=== PATIENT | female | born 1940 | race Caucasian/White ===

== ENCOUNTER 2019-06-14 17:32 | Observation (INO) | payer MEDICARE, SELFPAY ==
[2019-06-14 17:36] VITALS: RESP 18; TEMP 36.6; O2SAT 99; BMI 32.8
--- NOTE | 2019-06-14 17:47 | ECG_ITS ---
Measurements Intervals [place] Rate: 66 P: 24 [place]: 175 QRS: -8 QRSD: 94 T: 30 QT: 409 QTc: 431 SINUS RHYTHM MINIMAL VOLTAGE CRITERIA FOR LVH, CONSIDER NORMAL VARIANT [MEETS CRITERIA IN ONE OF: R(aVL), S(V1), R(V5), R(V5/V6)+S(V1)] No previous ECG available for comparison Electronically Signed On 06-14-2019 20:51:23 CDT by Prosper Amaya M.D. [email or web address]
[2019-06-14 19:10] LABS: Troponin(5th) Baseline 15 ng/mL (0-10)
--- NOTE | 2019-06-14 19:39 | ED_ITS ---
Entered by Radha Alvarado, acting as scribe for Holli Balbuena Jignesh Jun 14, 2019 17:32 HPI - Chest Pain General: Chief Complaint: Chest Pain Stated Complaint: CHEST PAINS Time Seen by Provider: 06/14/19 19:39 Source: patient and family Mode of arrival: ambulatory Limitations: no limitations History of Present Illness: HPI narrative: 79 yo Female presents to ED with complaint of chest pain. Pt states that she had a dull ache that lasted for 10- 15 minutes. Pt states that the pain was in her left chest and radiated to her back and her jaw. Pt states that the pain didn't radiate anywhere and she didn't have nausea or shortness of breath. Pt states that she sneezed and then her pain started. Pt states that she was plugging her cell phone in at the time the pain started. Pt states she sat down and took her blood pressure and it was a little elevated so she called Dr. Graham and decided to come in. Pt states that she has hypertension and high cholesterol that she takes medication for. Pt states that she was told she had heart murmur 57 years ago. Pt states that she smoked but quit 16 years ago. Pt's family states that the patient's blood pressure was 230/87 in triage. MD complaint: chest pain Onset (ago): hour(s) Timing of current episode: episodic and now resolved Prior episodes: Yes Onset: during rest Pain location: left chest Pain radiation: back and jaw/teeth Quality: aching and dull Relieving factors: nothing Exacerbating factors: nothing Associated symptoms: Deny diaphoresis, dyspnea, nausea, palpitations, syncope or vomiting Treatment prior to arrival: none Risk Factors: Coronary artery disease risk factors: smoking history, hyperlipidemia and hypertension Review of Systems General: Reports: other (negative unless marked) Const: Denies: diaphoresis Eyes: Denies: change in vision or blurry vision ENMT: Denies: throat pain, painful swallowing, hoarseness, ear pain, ear discharge, Change in hearing or nasal discharge Card: Reports: chest pain; Denies: palpitations, irregular heart rhythm, syncope, pre-syncope, shortness of breath on exertion or shortness of breath when lying down Resp: Denies: shortness of breath GI: Denies: nausea or vomiting : Denies: flank pain, painful urination, urinary frequency, urinary urgency, decreased urine ouput, urinary incontinence or blood in urine Musc: Reports: back pain and other (jaw pain); Denies: neck pain, extremity pain, extremity swelling, joint pain, joint swelling, joint warmth or joint stiffness Skin/Breast: Denies: rash, skin tenderness or yellow skin Neuro: Denies: headache, numbness in extremities, weakness in extremities, changes in sensation, lack of coordination, difficulty walking, dizziness, vertigo or confusion Endo: Denies: excessive thirst, tired all the time, cold intolerance, excessive sweating, flushing or hot flashes Davis/Lymph: Denies: easy bruising, easy bleeding, petechiae or enlarged lymph nodes All/Imm: Denies: hives, throat swelling, tongue swelling, facial swelling or acute wheezing PFSH ED PFSH: Social History Smoking and tobacco status: never smoked Physical Exam Const: COMMON NORMALS: no apparent distress, oriented x3, no limitations, healthy appearing and well nourished EXAM LIMITATIONS: no altered mental status GENERAL APPEARANCE: cooperative, well kempt and well developed ORIENTATION/CONSCIOUSNESS: Yes awake HENMT: COMMON NORMALS: normocephalic, head/scalp atraumatic, hearing grossly normal bilaterally, external ears normal, EAC's normal, external nose normal and moist oral mucous membranes HEAD & SCALP: normal to inspection, normocephalic and atraumatic FACE & SINUS: normal facial exam and face symmetric NOSE: external nose normal and nares normal EXTERNAL EAR: Yes external ears normal EXTERNAL AUDITORY CANAL: EAC's normal MOUTH: oral and palatal mucosa normal and tongue normal Eye: COMMON NORMALS: PERRL, EOMs intact bilaterally, conjunctivae normal and no scleral icterus GENERAL EYE: normal appearance of both eyes and normal light reflex CONJUNCTIVA: Yes conjunctivae normal SCLERA: sclerae normal CORNEA: Yes corneas normal PUPIL: Yes PERRL DIRECT OPHTHALMOSCOPY: Yes normal light reflex Neck/C-Spine: COMMON NORMALS: full ROM, no lymphadenopathy, supple, no meningeal signs and no JVD GENERAL: Yes normal visual inspection and Yes trachea midline CERVICAL SPINE: Yes cervical ROM normal Chest: COMMONS NORMALS: inspection of chest normal and palpation of chest normal Resp: COMMON NORMALS: normal respiratory effort, no retractions, no use of accessory muscles and clear to auscultation bilaterally EFFORT & INSPECTION: Yes able to speak in complete sentences AUSCULTATION: clear to auscultation bilaterally Cardio: COMMON NORMALS: no JVD, regular rate, regular rhythm, S1 normal heart sound, S2 normal heart sound, no gallops, no clicks, no murmurs and no rub JUGULAR VENOUS DISTENTION: no JVD RATE: regular rate RHYTHM: regular rhyt hm HEART SOUNDS: S1 normal and S2 normal GI: COMMON NORMALS: soft to palpation, non-tender, no hepatosplenomegaly and n o masses INSPECTION: Yes normal to inspection PALPATION: Yes soft and Yes no hepatosplenomegaly : COMMON NORMALS: Yes no CVA tenderness BLADDER/KIDNEY EXAM: Yes no CVA tenderness Back/Pelvis: COMMON NORMALS: no CVA tenderness, thoracic and lumbar spine normal to inspection, no thoracic nor lumbar tenderness and thoraco-lumbar ROM normal Extremity: COMMON NORMALS: normal to inspection, full ROM, normal capillary refill, no joint enlargement, no clubbing, cyanosis or edema and no calf tenderness Neuro: COMMON NORMALS: oriented x3, CN's II-XII intact bilaterally, moves all extremities, no focal motor deficits and no sensory deficits noted MENINGEAL SIGNS: Yes no meningeal signs Psych: COMMON NORMALS: mental status grossly normal, thought process normal, cooperative, affect normal, speech normal and activity/motor behavior normal APPEARANCE: Yes well kempt SPEECH: Yes normal speech THOUGHT PROCESS: normal thought process Skin: COMMON NORMALS: no rashes or lesions noted, skin turgor normal, no jaundice, no petechiae and no mottling GENERAL SKIN EXAM: no rashes or lesions noted and turgor normal Course Vital Signs: Vital signs: Vital Signs Temperature 97.8 F 06/14/19 17:36 Pulse Rate 60 06/14/19 21:05 Respiratory Rate 16 06/14/19 21:05 Blood Pressure 189/88 06/14/19 21:05 Pulse Oximetry 99 06/14/19 21:05 MDM - Chest Pain MDM Narrative: Medical decision making narrative: Libby is a nice 79-year-old female who comes in complaining of chest pain. It was described as a dull ache and it was left-sided. It radiated up to both of her jaws. She felt slightly short of breath but denied any diaphoresis, nausea or vomiting and the pain lasted more than 15 minutes. Patient has risk factors of hypertension, hyperlipidemia and being a former smoker. Patient's blood pressure was markedly elevated at home as well as here. After labetalol she is feeling better. She arrived chest pain-free. I have reviewed the case in full with Dr. Brown and he is agreeable to admission for cardiac rule out and stress testing. Lab Data: Labs: Lab Results 06/14/19 06/14/19 06/14/19 Range/Units 18:24 18:24 18:24 WBC 7.1 (4.0-10.0) 10^3/ uL RBC 4.59 (4.1-5.3) 10^6/u L Hgb 13.5 (11.5-15.3) g/dL Hct 42.9 (37.0-47.0) % MCV 93.5 (81-99) fL MCH 29.4 (28.0-34.0) pg MCHC 31.5 (30.0-36.0) g/dL RDW 12.6 (12.1-15.1) % Plt Count 269 (130-400) 10^3/c mm MPV 13.5 H (7.4-10.4) fL Neut % (Auto) 58.9 % Lymph % (Auto) 27.9 % Craig % (Auto) 8.7 % Eos % (Auto) 3.1 % Baso % (Auto) 1.1 % Neut # (Auto) 4.2 (1.8-7.7) 10^3/u L Lymph # (Auto) 2.0 (0.8-4.8) 10^3/u L Craig # (Auto) 0.6 (0.2-0.9) 10^3/u L Eos # (Auto) 0.2 (0.0-0.8) 10^3/u L Baso # (Auto) 0.1 (0.0-0.1) 10^3/u L Nucleated RBC % (a uto) 0 % Nucleated RBCs # 0.0 /100WBC Sodium 141 (136-145) mmol/L Potassium 4.5 (3.5-5.1) mmol/L Chloride 101 (98-107) mmol/L Carbon Dioxide 26 (22-29) mmol/L Anion Gap 18.5 (5-19) BUN 24 H (8-23) mg/dL Creatinine 1.4 H (0.5-0.9) mg/dL Glucose 110 (65-115) mg/dL Calculated Osmolal ity 289 (285-295) mOsm/k g Calcium 10.2 (8.5-10.5) mg/dL Magnesium 2.4 H (1.7-2.3) mg/dL Total Bilirubin 0.3 (0.15-1.2) mg/dL AST 24 (0-32) U/L ALT 16 (0-33) U/L Alkaline Phosphata se 77 (35-105) IU/L Troponin T Baselin e 15 H (0-10) ng/mL Troponin T 120 Min [place] (0-10) ng/mL Delta Troponin T (0-10) ABS# NT-Pro-B Natriuret Pep 83 (0-450) pg/mL Total Protein 7.1 (6.6-8.7) g/dL Albumin 4.6 (3.5-5.2) g/dL Globulin 2.5 (1.3-4.6) g/dL Lipase 31 (13-60) U/L 06/14/19 Range/Units 20:06 WBC (4.0-10.0) 10^3/ uL RBC (4.1-5.3) 10^6/u L Hgb (11.5-15.3) g/dL Hct (37.0-47.0) % MCV (81-99) fL MCH (28.0-34.0) pg MCHC (30.0-36.0) g/dL RDW (12.1-15.1) % Plt Count (130-400) 10^3/c mm MPV (7.4-10.4) fL Neut % (Auto) % Lymph % (Auto) % Craig % (Auto) % Eos % (Auto) % Baso % (Auto) % Neut # (Auto) (1.8-7.7) 10^3/u L Lymph # (Auto) (0.8-4.8) 10^3/u L Craig # (Auto) (0.2-0.9) 10^3/u L Eos # (Auto) (0.0-0.8) 10^3/u L Baso # (Auto) (0.0-0.1) 10^3/u L Nucleated RBC % (a uto) % Nucleated RBCs # /100WBC Sodium (136-145) mmol/L Potassium (3.5-5.1) mmol/L Chloride (98-107) mmol/L Carbon Dioxide (22-29) mmol/L Anion Gap (5-19) BUN (8-23) mg/dL Creatinine (0.5-0.9) mg/dL Glucose (65-115) mg/dL Calculated Osmolal ity (285-295) mOsm/k g Calcium (8.5-10.5) mg/dL Magnesium (1.7-2.3) mg/dL Total Bilirubin (0.15-1.2) mg/dL AST (0-32) U/L ALT (0-33) U/L Alkaline Phosphata se (35-105) IU/L Troponin T Baselin e (0-10) ng/mL Troponin T 120 Min [place] 13.46 H (0-10) ng/mL Delta Troponin T -1.54 L (0-10) ABS# NT-Pro-B Natriuret Pep (0-450) pg/mL Total Protein (6.6-8.7) g/dL Albumin (3.5-5.2) g/dL Globulin (1.3-4.6) g/dL Lipase (13-60) U/L Imaging Data^: CXR: My impression: No acute cardiopulmonary findings. EKG Data^: EKG 1: Attestation: I personally reviewed and interpreted this EKG as follows: EKG interpretation date: 06/14/19 Interpretation: Normal sinus rhythm at 66 beats a minute, LVH, left axis deviation, normal intervals, no blocks, no acute ST or T wave changes. Discharge Plan Discharge Patient Disposition: Placed in Observation Admit Provider: Prosper Valadez Clinical Impression: Chest pain Condition: Stable Coding Level of Care Code ED Development Educator for Chg Fwd Exam Comprehensive The documentation recorded by the Jenny boyle Carmen, accurately reflects the service I personally performed and the decisions made by Sree rodriguez Eli N Jun 14, 2019 17:32
--- NOTE | 2019-06-14 19:40 | XR_ITS ---
WS: [id number] Portable AP upright chest, 06/14/2019 Clinical Data: cough Comparison: None. Findings: No nodules, masses or effusions are seen. The heart is normal. The pulmonary vascularity is not increased. No pneumonia or pneumothorax is seen. The aortic arch shows calcification. XR/XR chest 1V portable [id number] Impression: Atherosclerosis.
[2019-06-14 19:48] LABS: Basophils # 0.1 10^3/uL (0.0-0.1); Basophils % 1.1 %; Eosinophils # 0.2 10^3/uL (0.0-0.8); Eosinophils % 3.1 %; Hematocrit 42.9 % (37.0-47.0); Hemoglobin 13.5 g/dL (11.5-15.3); Lymphocytes % 27.9 %; Mean Corpuscular HGB Conc 31.5 g/dL (30.0-36.0); Mean Corpuscular Hemoglobin 29.4 pg (28.0-34.0); Mean Corpuscular Volume 93.5 fL (81-99); Mean Platelet Volume 13.5 fL (7.4-10.4); Monocytes # 0.6 10^3/uL (0.2-0.9); Monocytes % 8.7 %; Neutrophils # 4.2 10^3/uL (1.8-7.7); Neutrophils % 58.9 %; Nucleated Red Blood Cells % 0 %; Platelet Count 269 10^3/cmm (130-400); Red Blood Count 4.59 10^6/uL (4.1-5.3); Red Cell Distribution Width 12.6 % (12.1-15.1); White Blood Count 7.1 10^3/uL (4.0-10.0)
[2019-06-14 20:06] LABS: Slide Review Slide Review Perform
[2019-06-14 20:13] LABS: Alanine Aminotransferase 16 U/L (0-33); Albumin Level 4.6 g/dL (3.5-5.2); Alkaline Phosphatase 77 IU/L (35-105); Anion Gap 18.5 (5-19); Aspartate Amino Transferase 24 U/L (0-32); Blood Urea Nitrogen 24 mg/dL (8-23); Calcium 10.2 mg/dL (8.5-10.5); Carbon Dioxide 26 mmol/L (22-29); Chloride 101 mmol/L (98-107); Globulin 2.5 g/dL (1.3-4.6); Glucose 110 mg/dL (65-115); Lipase 31 U/L (13-60); Magnesium 2.4 mg/dL (1.7-2.3); NT Pro B Type Natriuretic Pept 83 pg/mL (0-450); Osmolality Calculated 289 mOsm/kg (285-295); Potassium 4.5 mmol/L (3.5-5.1); Sodium 141 mmol/L (136-145); Total Bilirubin 0.3 mg/dL (0.15-1.2); Total Protein 7.1 g/dL (6.6-8.7)
[2019-06-14] MEDS: labetalol 5 mg/mL SDV 20mL 10 MG IVP (20:18)
[2019-06-14] MEDS: aspirin 325 mg Tablet PO (20:20)
[2019-06-14 20:37] LABS: Troponin 5 2HR 13.46 ng/mL (0-10)
[2019-06-14 20:45] LABS: Troponin 5 2HR Delta -1.54 ABS# (0-10)
[2019-06-14 21:05] VITALS: BP 189/88; PULSE 60; RESP 16; O2SAT 99
--- NOTE | 2019-06-14 22:02 | PM.HP ---
Providers/Chief Complaint Admitting Physician: Prosper Valadez MD Chief Complaint: CHEST PAINS History of Present Illness Libby Estevez is a 79 year old female who has a history of hypertension, takes 3 antihypertensives, came in with chief complaint of chest pain. Patient is stating that she lives alone, she is independent for daily activities, she was in her usual state of health until today when she started sneezing, after sneezing she felt some discomfort around her chin area, she has not been taking her blood pressure for quite a while because she was feeling fine, she is compliant with her medications, she ignored her discomfort around the chin initially and then she started experiencing some chest discomfort which was diffuse, substernal, radiating towards her jaw, lasted for few minutes not associated with nausea, vomiting, shortness of breath, orthopnea and PND. At that time she took blood pressure it was 203/87 mmHg, she called her PCP who recommended evaluation in the ER, when she came in her blood pressure was 230/187, sinus rhythm, troponins not significantly high, she was admitted for ACS rule out considering her risk factors. Review of Systems Const: Denies: fever or chills Eyes: Denies: change in vision or photophobia ENMT: Denies: throat pain Card: Reports: chest pain; Denies: palpitations, irregular heart rhythm, edema, swelling of feet/ankles, lightheadedness or syncope Resp: Denies: shortness of breath GI: Denies: abdominal pain, nausea or vomiting : Denies: flank pain or difficulty urinating Musc: Denies: neck pain Skin/Breast: Denies: rash Neuro: Denies: headache Psych: Denies: anxiety Endo: Denies: excessive urination Davis/Lymph: Denies: easy bruising All/Imm: Denies: hives Medications/Allergies Home Medications Medication Instructions Recorded Confirmed Last Taken Type atorvastatin [Lipitor] 10 mg PO DAILY 06/14/19 06/14/19 06/14/19 History hydrochlorothiazide 12.5 mg PO DAILY 06/14/19 06/14/19 06/14/19 History losartan 100 mg PO DAILY 06/14/19 06/14/19 06/14/19 History magnesium citrate See Rx Instructions .ROUTE .COMPLEX 06/14/19 06/14/19 Unknown History magnesium hydroxide [Milk of See Rx Instructions .ROUTE .COMPLEX 06/14/19 06/14/19 Unknown History Magnesia] metoprolol tartrate 50 mg PO DAILY 06/14/19 06/14/19 06/14/19 History multivit with min-folic acid 400 mcg PO DAILY 06/14/19 06/14/19 06/14/19 History [Adult Multivitamin Gummies] Allergies Allergy/AdvReac Type Severity Reaction Status Date / Time No Known Allergies Allergy Verified 06/14/19 17:43 PFSH Acute PFSH: Medical History (Updated 06/14/19 @ 23:52 by Prosper Valadez MD) Dyslipidemia Former smoker GERD (gastroesophageal reflux disease) Hypertension Surgical History (Updated 06/14/19 @ 23:51 by Prosper Valadez MD) H/O knee surgery Family History (Updated 06/14/19 @ 23:51 by Prosper Valadez MD) Father CAD (coronary artery disease) Denies family history of Cancer Social History (Updated 06/14/19 @ 23:51 by Prosper Valadez MD) Smoking and tobacco status: never smoked Alcohol intake: never Substance/Drug Use: never Lives independently: Yes Housing: House Vitals/I&O/Wt Last Vital Signs Temp 97.8 F 06/14/19 17:36 Pulse 60 06/14/19 21:05 Resp 16 06/14/19 21:05 BP 189/88 06/14/19 21:05 Pulse Ox 99 06/14/19 21:05 Weight last 48 hrs Weight 83.915 kg Physical Exam Narrative: EXAM NARRATIVE: This is a pleasant obese female sitting comfortable in her bed eating sandwich S1, S2, no reproducible pain, no signs of heart failure Abdomen soft, nontender, nondistended, bowel sound present Lungs are clear to auscultation Neurologically nonfocal exam Skin does not show any sign ischemia gangrene or ulcer Appropriate mood and affect EOMI, PERRLA Data : 06/14/19 18:24 06/14/19 18:24 A&P Assessment and plan (1) Chest pain: Status: Acute Code(s): R07.9 - Chest pain, unspecified (2) Hypertensive urgency: Status: Acute Code(s): I16.0 - Hypertensive urgency (3) Obesity: Status: Acute Code(s): E66.9 - Obesity, unspecified (4) Dyslipidemia: Status: Acute Code(s): E78.5 - Hyperlipidemia, unspecified Additional A&P Information Atypical chest pain Her discomfort is most likely secondary to hypertensive urgency, target blood pressure lowering 25% in next 16 to 18 hours, I will target her blood pressure to be around 140 to 150 mmHg, Considering her obesity, dyslipidemia, hypertension he has moderate risk factors for coronary disease, will do a Lexiscan stress test in the morning along echo I will hold her beta-renetta at the moment N.p.o. after midnight Hypertensive urgency: She is on 3 antihypertensives, I have increased her hydrochlorothiazide dose, she will probably need higher dose of metoprolol on discharge, no signs of hyper or hypokalemia, she will need work-up for resistant hypertension if blood pressure stays uncontrolled on 3 medications Full code DVT prophylaxis: Lovenox Obesity: Patient was counseled on the benefits of losing weight and reduction of blood pressure, I will check A1c level, lipid panel and TSH Attestations Medical Necessity Statement*: Anticipating discharge less than 48 hours after ruling out cardiac etiology for her chest pain Time Spent in Patient Care: 40 Coding Level of Care Code Acute Roll Capper for [facility] Rahd Diagnoses Chest pain R07.9 Hypertensive urgency I16.0 Obesity E66.9 Dyslipidemia E78.5
[2019-06-14 22:16] VITALS: BP 189/88; PULSE 60; RESP 16; O2SAT 96
[2019-06-14 22:37] VITALS: BP 171/88; PULSE 74; RESP 18; O2SAT 96
--- NOTE | 2019-06-14 22:58 | PC.NURSE ---
Admitted to room 112-2 from ED via wheelchair with complaint of chest pain x1 today, happened when I bent over to plug in my phone. Denies pain at this time. Just hungry and tired. Assessment completed. [place] given to patient. Patient lying in bed watching television. I always watch television about an hour before I go to sleep. Dr. Valadez in room. Discontinued IVF. Will monitor.
[2019-06-14 23:22] VITALS: PULSE 66; RESP 18
--- NOTE | 2019-06-14 23:47 | ECG_ITS ---
Measurements Intervals [place] Rate: 63 P: 40 PA: 168 QRS: -7 QRSD: 93 T: 67 QT: 419 QTc: 432 SINUS RHYTHM NONSPECIFIC T-WAVE ABNORMALITY Compared to ECG 06/14/2019 17:41:34 T-wave abnormality now present Electronically Signed On 06-16-2019 9:05:28 CDT by Dameon Malcolm M.D. [email or web address]
[2019-06-14] MEDS: enoxaparin 40 mg/0.4 mL Syringe SUBCUT (23:49)
[2019-06-15] VITALS (7 sets, daily range): BP systolic 139–218; BP diastolic 63–85; PULSE 62–66; RESP 11–19; TEMP 36.7–37.1; O2SAT 97–98
--- NOTE | 2019-06-15 00:04 | PC.NURSE ---
This nurse explained to patient about Lovenox and the reasoning for it. Also spoke to patient about NIBI Stress Test in am. Order faxed to [facility]. Voices understanding. Will monitor.
[2019-06-15 00:18] LABS: Troponin 5 6HR 13.79 ng/mL (0-10)
[2019-06-15 00:26] LABS: Troponin 5 6HR Delta -1.21 ng/L (0-12)
[2019-06-15 00:30] LABS: Estmated Average Glucose 123; Hemoglobin A1C 5.9 % (4.0-6.0)
[2019-06-15 00:32] LABS: Chol HDL Ratio 2.61 mg/dL (0.0-4.40); Cholesterol 180 mg/dL (0-200); HDL Cholesterol 69 mg/dL (60-100); LDL Cholesterol Calculated 96 mg/dL (50-129); LDL HDL Ratio 1.39 RATIO (0.00-3.22); Triglycerides 73 mg/dL (0-150)
[2019-06-15 00:41] LABS: Thyroid Stimulating Hormone 3.31 uIU/mL (0.27-4.20)
--- NOTE | 2019-06-15 02:08 | PC.NURSE ---
Patient lying on right side with eyes closed. Respirations even and unlabored. Did not awaken at this time. Will monitor. Monitor showing SR with HR of 62.
[2019-06-15 04:37] LABS: Basophils # 0.1 10^3/uL (0.0-0.1); Basophils % 1.1 %; Eosinophils # 0.2 10^3/uL (0.0-0.8); Eosinophils % 3.1 %; Hematocrit 37.9 % (37.0-47.0); Hemoglobin 12.2 g/dL (11.5-15.3); Lymphocytes % 31.1 %; Mean Corpuscular HGB Conc 32.2 g/dL (30.0-36.0); Mean Corpuscular Hemoglobin 29.8 pg (28.0-34.0); Mean Corpuscular Volume 92.7 fL (81-99); Mean Platelet Volume 13.6 fL (7.4-10.4); Monocytes # 0.6 10^3/uL (0.2-0.9); Monocytes % 9.5 %; Neutrophils # 3.6 10^3/uL (1.8-7.7); Nucleated Red Blood Cells % 0 %; Platelet Count 227 10^3/cmm (130-400); Red Blood Count 4.09 10^6/uL (4.1-5.3); Red Cell Distribution Width 12.6 % (12.1-15.1); White Blood Count 6.4 10^3/uL (4.0-10.0)
[2019-06-15 04:49] LABS: Blood Urea Nitrogen 24 mg/dL (8-23); Calcium 9.7 mg/dL (8.5-10.5); Carbon Dioxide 23 mmol/L (22-29); Chloride 105 mmol/L (98-107); Glucose 109 mg/dL (65-115); Osmolality Calculated 289 mOsm/kg (285-295); Sodium 141 mmol/L (136-145)
[2019-06-15 05:32] LABS: Slide Review Slide Review Perform
--- NOTE | 2019-06-15 06:00 | ECG_ITS ---
NAME OF STUDY: LEXISCAN SESTAMIBI STRESS TEST INDICATION: Chest Pain, LEXISCAN STRESS TEST ORDERING PHYSICIAN: Hospitalist CLINICAL INFORMATION: Chest pain INTERPRETATION: 1. The patient was brought to the laboratory where Lexiscan was infused over 20 seconds. The resting blood pressure was 204/84. Maximum blood pressure was 204/84. The resting heart rate was 62 beats per minute. The maximum heart rate is 84 beats per minute. 2. The baseline electrocardiogram reveals sinus rhythm with poor R wave progression but otherwise a normal tracing 3. With Lexiscan infusion, there were no ST segment changes to suggest ischemia. 4. The patient experienced no symptoms or arrhythmias during the examination. CONCLUSION: 1. Unremarkable Lexiscan infusion. 2. Nuclear imaging to follow. 3. Hypertension Electronically Signed On 06-15-2019 18:32:24 CDT by Dameon Malcolm M.D. [email or web address]
--- NOTE | 2019-06-15 06:22 | PC.NURSE ---
Monitor showing SR-SB with HR upper 50's to low 60's. Denies pain. Will monitor.
[2019-06-15] MEDS: regadenoson 0.4 Mg/5 ml Syringe IVP (08:05)
--- NOTE | 2019-06-15 08:24 | PC.NURSE ---
PATIENT HELD IN CDL UNTIL 2ND NUC MED SCANS
[2019-06-15] MEDS: losartan 50 mg Tablet 100 MG PO (09:45)
[2019-06-15] MEDS: hydroCHLOROthiazide 25 mg Tablet PO (09:45)
[2019-06-15] MEDS: metoprolol tartrate 25 mg Tablet 37.5 MG PO (09:46)
[2019-06-15] MEDS: atorvastatin 40 mg Tablet 10 MG PO (09:46)
--- NOTE | 2019-06-15 12:54 | P.PN_ITS ---
Subjective Subjective: Interval history: Libby reports no chest discomfort overnight. History and physical was reviewed. We are awaiting the results of her nuclear stress test. Blood pressures come under better control after she has been able to get her beta-renetta following her stress test. Medications: Reviewed: Yes Vitals/I&O/Wt Last Vital Signs Temp 98.7 F 06/15/19 12:00 Pulse 64 06/15/19 12:00 Resp 18 06/15/19 12:00 BP 150/63 06/15/19 12:00 Pulse Ox 97 06/15/19 12:00 06/14/19 06/15/19 06/15/19 22:59 06:59 14:59 Intake Total 480 / 480 Balance 480 / 480 Weight last 48 hrs Weight 83.915 kg Physical Exam Narrative: EXAM NARRATIVE: General exam is no apparent distress Cardiovascular regular rate and rhythm without murmur Lungs clear no wheezing or crackles Abdomen is soft positive bowel sounds Extremities no cyanosis clubbing or edema Data : 06/15/19 03:30 06/15/19 03:30 A&P Assessment and plan (1) Chest pain: Nuclear stress test pending. Echocardiogram pending. Troponin without any significant delta. EKG without any significant ischemic changes. Status: Acute Code(s): R07.9 - Chest pain, unspecified (2) Hypertensive urgency: Metoprolol dose has been increased Hydrochlorothiazide dose has been increased. Continue losartan Further adjustments will likely be needed but blood pressure is coming under better control. This will require close follow-up. 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 Coding Level of Care Code Acute Outbound Sales Professional for g Fwd Diagnoses Chest pain R07.9 Hypertensive urgency I16.0 Obesity E66.9 Dyslipidemia E78.5
--- NOTE | 2019-06-15 16:59 | PM.DCS ---
Discharge Providers Date of Admission: 06/14/19 21:40 Date of Discharge: June 15, 2019 Attending Provider at Admission: Prosper Valadez MD Attending Provider at Discharge: Td Rain MD Diagnoses at Discharge Discharge Diagnosis (1) Chest pain: Status: Acute Problem details: No chest discomfort in the hospital. Troponin with no significant delta. EKG with no ischemia. Nuclear stress test with no reversible ischemia. Elevation in TID ratio was noted. Echocardiogram with normal EF, no wall motion abnormalities (2) Hypertensive urgency: Status: Acute Problem details: Improved with adjustment of medication. Metoprolol increased. Hydrochlorothiazide increased. She will start Norvasc tomorrow (3) Obesity: Status: Acute Problem details: Discussed weight loss (4) Dyslipidemia: Status: Acute Problem details: Continue statin Reason for Visit Reason for Visit: Reason For Visit: CHEST PAINS Hospital Course Discharge Summary: Libby is a 79-year-old female who presented to the hospital with chest discomfort. It was somewhat atypical. EKG did not show significant ischemic changes. Troponin demonstrated no concerning delta. Blood pressure was markedly elevated. While in the hospital she had no recurrence of pain. Nuclear stress test was performed, demonstrating no reversible ischemia. TID ratio was elevated. Echocardiogram demonstrated preserved EF, no significant valve abnormalities, and no wall motion abnormalities. Blood pressure medication was adjusted in the hospital with increase metoprolol, increased hydrochlorothiazide, and plan for addition of Norvasc. While in the hospital blood pressure decreased and was stable at 160/70 on discharge. She remained chest discomfort free in the hospital. It was thought she could be discharged home with close follow-up with her primary care provider. Physical Exam Narrative: EXAM NARRATIVE: See progress note from today Discharge Data Data Completed and Pending: Completed Studies During Hospitalization Category Date Time Status XR chest 1V jenny ble [id number] Stat Exams 06/14/19 19:40 Completed NM jesica perf SPECT r/s* [id number] Routin e Nuc Med 06/15/19 23:39 Completed CV echo complete* [id number] Routine Ultrasound 06/15/19 23:46 Completed Pending at discharge Category Date Time Status Sestamibi Stress Test Request Routi ne Exams 06/15/19 06:00 Ordered Labs from last 24 hours 06/15/19 06/15/19 06/14/19 03:30 03:30 23:40 WBC 6.4 RBC 4.09 L Hgb 12.2 Hct 37.9 MCV 92.7 MCH 29.8 MCHC 32.2 RDW 12.6 Plt Count 227 MPV 13.6 H Neut % (Auto) 55.0 Lymph % (Auto) 31.1 [place] % (Auto) 9.5 Eos % (Auto) 3.1 Baso % (Auto) 1.1 Neut # (Auto) 3.6 Lymph # (Auto) 2.0 [place] # (Auto) 0.6 Eos # (Auto) 0.2 Baso # (Auto) 0.1 Nucleated RBC % (a uto) 0 Nucleated RBCs # 0.0 Sodium 141 Potassium 4.0 Chloride 105 Carbon Dioxide 23 Anion Gap 17.0 BUN 24 H Creatinine 1.3 H Glucose 109 Estimat Average Gl ucose Hemoglobin A1c Calculated Osmolal ity 289 Calcium 9.7 Magnesium Total Bilirubin AST ALT Alkaline Phosphata se Troponin I 6 Hour 13.79 H Troponin I Hi Sens Del -1.21 L Troponin T Baselin e Troponin T 120 Min [place] Delta Troponin T NT-Pro-B Natriuret Pep Total Protein Albumin Globulin Triglycerides Cholesterol LDL Cholesterol, C alc HDL Cholesterol LDL/HDL Ratio Cholesterol/HDL Ra flash Lipase TSH 06/14/19 06/14/19 06/14/19 20:06 18:24 18:24 WBC RBC Hgb Hct MCV MCH MCHC RDW Plt Count MPV Neut % (Auto) Lymph % (Auto) [place] % (Auto) Eos % (Auto) Baso % (Auto) Neut # (Auto) Lymph # (Auto) [place] # (Auto) Eos # (Auto) Baso # (Auto) Nucleated RBC % (a uto) Nucleated RBCs # Sodium Potassium Chloride Carbon Dioxide Anion Gap BUN Creatinine Glucose Estimat Average Gl ucose 123 Hemoglobin A1c 5.9 Calculated Osmolal ity Calcium Magnesium Total Bilirubin AST ALT Alkaline Phosphata se Troponin I 6 Hour Troponin I Hi Sens Del Troponin T Baselin e Troponin T 120 Min [place] 13.46 H Delta Troponin T -1.54 L NT-Pro-B Natriuret Pep Total Protein Albumin Globulin Triglycerides Cholesterol LDL Cholesterol, C alc HDL Cholesterol LDL/HDL Ratio Cholesterol/HDL Ra flash Lipase TSH 3.31 06/14/19 06/14/19 06/14/19 18:24 18:24 18:24 WBC 7.1 RBC 4.59 Hgb 13.5 Hct 42.9 MCV 93.5 MCH 29.4 MCHC 31.5 RDW 12.6 Plt Count 269 MPV 13.5 H Neut % (Auto) 58.9 Lymph % (Auto) 27.9 [place] % (Auto) 8.7 Eos % (Auto) 3.1 Baso % (Auto) 1.1 Neut # (Auto) 4.2 Lymph # (Auto) 2.0 [place] # (Auto) 0.6 Eos # (Auto) 0.2 Baso # (Auto) 0.1 Nucleated RBC % (a uto) 0 Nucleated RBCs # 0.0 Sodium 141 Potassium 4.5 Chloride 101 Carbon Dioxide 26 Anion Gap 18.5 BUN 24 H Creatinine 1.4 H Glucose 110 Estimat Average Gl ucose Hemoglobin A1c Calculated Osmolal ity 289 Calcium 10.2 Magnesium 2.4 H Total Bilirubin 0.3 AST 24 ALT 16 Alkaline Phosphata se 77 Troponin I 6 Hour Troponin I Hi Sens Del Troponin T Baselin e Troponin T 120 Min [place] Delta Troponin T NT-Pro-B Natriuret Pep 83 Total Protein 7.1 Albumin 4.6 Globulin 2.5 Triglycerides 73 Cholesterol 180 LDL Cholesterol, C alc 96 HDL Cholesterol 69 LDL/HDL Ratio 1.39 Cholesterol/HDL Ra flash 2.61 Lipase 31 TSH 06/14/19 18:24 WBC RBC Hgb Hct MCV MCH MCHC RDW Plt Count MPV Neut % (Auto) Lymph % (Auto) [place] % (Auto) Eos % (Auto) Baso % (Auto) Neut # (Auto) Lymph # (Auto) [place] # (Auto) Eos # (Auto) Baso # (Auto) Nucleated RBC % (a uto) Nucleated RBCs # Sodium Potassium Chloride Carbon Dioxide Anion Gap BUN Creatinine Glucose Estimat Average Gl ucose Hemoglobin A1c Calculated Osmolal ity Calcium Magnesium Total Bilirubin AST ALT Alkaline Phosphata se Troponin I 6 Hour Troponin I Hi Sens Del Troponin T Baselin e 15 H Troponin T 120 Min [place] Troponin T NT-Pro-B Natriuret Pep Total Protein Albumin Globulin Triglycerides Cholesterol LDL Cholesterol, C alc HDL Cholesterol LDL/HDL Ratio Cholesterol/HDL Ra flash Lipase TSH Vitals: Last Vital Signs Temp 98.0 F 06/15/19 16:00 Pulse 64 06/15/19 16:00 Resp 19 H 06/15/19 16:00 BP 167/73 06/15/19 16:00 Pulse Ox 97 03/10/20 12:00 Discharge Plan Discharge Patient Disposition: Home, Self-Care Condition: Stable Prescriptions: New amlodipine [Norvasc] 5 mg tablet 5 mg PO DAILY Qty: 30 RF: 0 hydrochlorothiazide 25 mg Tablet 25 mg PO DAILY Qty: 30 RF: 0 metoprolol tartrate 25 mg Tablet 37.5 mg PO BID Qty: 60 RF: 0 Continued Lipitor 10 mg tablet 10 mg PO DAILY RF: 0 Milk of Magnesia 400 mg/5 mL Suspension See Rx Instructions .ROUTE .COMPLEX RF: 0 magnesium citrate Solution See Rx Instructions .ROUTE .COMPLEX RF: 0 losartan 100 mg tablet 100 mg PO DAILY RF: 0 Adult Multivitamin Gummies 200 mcg Tablet,Chewable 400 mcg PO DAILY RF: 0 Discontinued metoprolol tartrate 50 mg tablet 50 mg PO DAILY RF: 0 hydrochlorothiazide 12.5 mg tablet 12.5 mg PO DAILY RF: 0 Discharge Orders: Discharge Order (Routine); Ordered 06/15/19 Ordered By: Td Rain Referrals: Shira Graham MD [Hospitalist] - 4-7 days Discharge Diet: Cardiac Discharge Activity: Increase activity as tolerated Activity Restrictions/Additional Instructions: Take all medicine as prescribed Follow-up with your primary care provider BMP in 1 week Discharge Attestations Time Spent in Discharge Care*: greater than 30 min Quality Metrics Clinical Quality Measures During this hospital stay, did patient experience: None Coding Level of Care Code Acute Alteration Workroom Supervisor for Chg Fwd Diagnoses Chest pain R07.9 Hypertensive urgency I16.0 Obesity E66.9 Dyslipidemia E78.5
--- NOTE | 2019-06-15 23:39 | NMCV_ITS ---
NM jesica perf SPECT r/s* [id number] Libby Estevez Age: 79 Gender: F : 1940 Exam Date: 06/15/2019 07:06 Ordering Phys: Prosper Valadez MD Technologist: JESSICA Kong Exam Location: [facility] Indications: CHEST PAIN STRESS TEST Please [facility] IMAGE PROTOCOL Rest/Stress 1 Lexiscan Day Radiopharmaceutical Dose (mCi) Administration Site Administered by Rest: Tc-99m 10.9 IV JESSICA Klein Sestamibi Stress:Tc-99m 32.4 IV JESSICA Kong Sestamitate Rest: 15-Jun-2019 60 Discovery 630 Stress: 15-Jun-2019 30 Discovery 630 0.4mg Lexiscan. Images obtained in supine and prone position. SPECT RESULTS Technical Quality: Excellent Raw Data Analysis: Normal Image Corrections: No attenuation or motion correction applied Summed Stress Score: 0 Summed Rest Score: 1 Summed Difference Score: 0 PERFUSION FINDINGS Patchy areas of slightly decreased tracer uptake in the mid anterior wall region, with no reversibility. FUNCTIONAL RESULTS (calculated via Gated SPECT) Stress Image LV EF (%): 89 Stress EDV (mL):54 TID: 1.3 Stress ESV (mL):6 FUNCTIONAL FINDINGS: Segmental wall motion analysis revealing no gross wall motion normalities. IMPRESSIONS 1. Myocardial perfusion imaging revealing small areas of slightly decreased persistent tracer uptake in the mid anterior wall region, most likely represent attenuation artifact. 2. Normal LV ejection fraction of 89%. 3. LV wall motion analysis revealing no gross wall motion normalities. 4. Normal LV volume. 5. Elevated transient ischemic dilatation index (1.3) may suggest endocardial ischemia. However the positive predictive value this finding is limited. Clinical correlation is recommended Dr Emelina Brito MD FACC (Electronically Signed) Final Date: 15 June 2019 12:39 S
--- NOTE | 2019-06-15 23:46 | USCV_ITS ---
Libby Estevez Age: 79 Gender: F : 1940 Exam Date: 06/15/2019 15:10 Ordering Phys: Prosper Valadez MD Technologist: Elvin Phillips [place] [facility] [place]ication: CHEST PAIN BP: 134 / 82 HR: 59 Rhythm: Sinus Technical Quality: Adequate MEASUREMENTS (Male / Female) Normal Values 2D ECHO LVOT Diameter 2.0 cm LA Diameter 4.4 cm LA Width 4.5 cm LA Height 5.0 cm RA Width 4.5 cm RA Height 3.7 cm Aorta at Sinotubular Diameter 2.9 cm M-MODE LV Diastolic Diameter MM 4.4 cm 4.2 - 5.9 / 3.9 - 5.3 cm LV Systolic Diameter MM 3.5 cm LV Ejection Fraction MM Teich 44.8 % IVS Diastolic Thickness MM 1.0 cm 0.6 - 1.0 / 0.6 - 0.9 cm IVS Systolic Thickness MM 1.7 cm LVPW Diastolic Thickness MM 1.1 cm 0.6 - 1.0 / 0.6 - 0.9 cm LVPW Systolic Thickness MM 1.9 cm RV Diastolic Diameter MM 1.7 cm Aortic Annulus Diameter 3.8 cm LA Ao Ratio MM 1.2 MV E Point Septal Separation 0.9 cm DOPPLER AV Peak Velocity 150.0 cm/s LVOT Peak Velocity 95.0 cm/s AV Area Cont Eq vti 1.9 cm squared AV Area Cont Eq pk 2.0 cm squared MV Area PHT 3.9 cm squared Mitral E to A Ratio 0.9 MV E' Velocity 9.0 cm/s Mitral E to MV E' Ratio 10.2 Mitral E to LV E' Lateral Ratio 8.0 Mitral E to LV E' Septal Ratio 14.3 TR Peak Velocity 119.0 cm/s TR Peak Gradient 5.6 mmHg TV Peak E Velocity 76.0 cm/s Right Atrial Pressure 5.0 mmHg Pulmonary Artery Systolic Pressu 10.7 mmHg PV Peak Velocity 89.0 cm/s FINDINGS Left Ventricle Normal left ventricular size, systolic function and wall thickness, with no regional wall motion abnormalities. Normal left ventricular wall thickness. Normal diastolic filling pattern. Left ventricular ejection fraction is estimated at 65 %. Right Ventricle Normal right ventricular size and systolic function. Normal right ventricular systolic pressure. Right Atrium Mildly increased right atrial size. Left Atrium Mildly increased left atrial size. Mitral Valve Structurally normal mitral valve. Mild mitral valve regurgitation. Aortic Valve Structurally normal trileaflet aortic valve. Mild aortic valve calcification. Aortic valve sclerosis without stenosis or regurgitation. Tricuspid Valve Structurally normal tricuspid valve. Trace tricuspid valve regurgitation. Pulmonic Valve Pulmonic valve not well visualized. Pericardium Normal pericardium without effusion. Aorta Normal ascending aorta dimension. CONCLUSIONS Normal left ventricular size, systolic function and wall thickness, with no regional wall motion abnormalities. Normal left ventricular wall thickness. Normal diastolic filling pattern. Left ventricular ejection fraction is estimated at 65 %. Mildly increased right atrial size. Mildly increased left atrial size. Structurally normal mitral valve. Mild mitral valve regurgitation. There are no prior echocardiogram studies to compare. Dr. Dameon Malcolm MD (Electronically Signed) Final Date: 15 June 2019 16:44 S
== END 2019-06-15 17:45 | disposition home or self-care (01) ==
LOC: ER 19:39 → CSU 22:01
PROVIDERS: Admitting Provider Internal Medicine; Emergency Provider Emergency Medicine; Visit Provider Internal Medicine
DX: R07.89 Other chest pain (principal); I16.0 Hypertensive urgency; E66.9 Obesity, unspecified; Z68.32 Body mass index [BMI] 32.0-32.9, adult; E78.5 Hyperlipidemia, unspecified; Z87.891 Personal history of nicotine dependence; K21.9 Gastro-esophageal reflux disease without esophagitis
CPT/HCPCS: 12345; 36415; 71045; 78452; 80048; 80053; 80061; 83036; 83690; 83735; 83880; 84443; 84484; 85025; 93005; 93017; 93306; 96372; 96374; 96375; 99281; 99285; A9500; G0378; J1650; J2785; J3490

== ENCOUNTER 2019-08-17 09:03 | Outpatient (CLI) | payer MEDICARE, SELFPAY ==
--- NOTE | 2019-08-17 09:19 | USCV_ITS ---
Libby Estevez Age: 79 Gender: F : 1940 Exam Date: 08/17/2019 09:16 Ordering Phys: Shira Graham MD Technologist: Elvin Phillips [place] [facility] [place] Indication: LT LEG PAIN AND EDMA HISTORY: Lower extremity pain. PROCEDURES: Venous duplex imaging was performed in only the left lower extremity. The following venous structures were evaluated: common femoral vein, profunda vein, proximal portion of the greater saphenous vein, superficial femoral vein, and the popliteal vein. FINDINGS: Normal 2-D Doppler and augmentation and compressibility throughout the lower extremity venous structures. Additional imaging through the proximal calf veins also reveals no thrombus. Limited evaluation of the greater saphenous vein is patent with no thrombus. CONCLUSIONS No DVT left lower extremity. Dr. Mara Ruffin DO (Electronically Signed) Final Date: 17 Aug 2019 10:37 S
== END 2019-08-17 09:04 | disposition home or self-care (01) ==
PROVIDERS: Visit Provider Family Medicine
DX: R22.42 Localized swelling, mass and lump, left lower limb (principal)
CPT/HCPCS: 93971

== ENCOUNTER 2019-09-01 10:36 | Outpatient (RCR) | payer MEDICARE, SELFPAY | END 2019-09-05 23:59 | disposition home or self-care (01) | LOC: SPT 10:36 | PROVIDERS: PCP Family Medicine; Referring Provider Nurse Practitioner Family; Visit Provider Nurse Practitioner Family | DX: I89.0 Lymphedema, not elsewhere classified (principal) | CPT/HCPCS: 97140; 97161 ==

== ENCOUNTER 2019-09-06 06:00 | Outpatient (RCR) | payer MEDICARE, SELFPAY | END 2019-09-16 10:35 | disposition home or self-care (01) | LOC: SPT 06:00 | PROVIDERS: PCP Family Medicine; Visit Provider Nurse Practitioner Family | DX: I89.0 Lymphedema, not elsewhere classified (principal) | CPT/HCPCS: 97140 ==

== ENCOUNTER → 2019-09-29 08:49 | Outpatient (BNVA) | payer MEDICARE, SELFPAY | PROVIDERS: PCP Family Medicine; Referring Provider Nurse Practitioner Family; Visit Provider Specialist | DX: M25.562 Pain in left knee (principal); M17.12 Unilateral primary osteoarthritis, left knee | CPT/HCPCS: 73560; 73565 ==

== ENCOUNTER → 2019-10-25 11:48 | Outpatient (BNVA) | payer MEDICARE, SELFPAY | PROVIDERS: PCP Family Medicine; Visit Provider Specialist | DX: M25.561 Pain in right knee (principal); M17.11 Unilateral primary osteoarthritis, right knee | CPT/HCPCS: 73560; 73565 ==

== ENCOUNTER 2020-04-03 06:00 | Outpatient (RCR) | payer MEDICARE, SELFPAY | END 2020-04-06 23:59 | disposition home or self-care (01) | LOC: SPT 06:00 | PROVIDERS: PCP Family Medicine; Referring Provider Specialist; Visit Provider Specialist | DX: M17.0 Bilateral primary osteoarthritis of knee (principal) | CPT/HCPCS: 97161 ==

== ENCOUNTER 2020-04-07 06:00 | Outpatient (RCR) | payer MEDICARE, SELFPAY | END 2020-05-07 23:59 | disposition home or self-care (01) | LOC: SPT 06:00 | PROVIDERS: PCP Family Medicine; Referring Provider Specialist; Visit Provider Specialist | DX: M17.0 Bilateral primary osteoarthritis of knee (principal) | CPT/HCPCS: 97110 ==

== ENCOUNTER 2020-05-08 06:00 | Outpatient (RCR) | payer MEDICARE, SELFPAY | END 2020-06-04 23:59 | disposition home or self-care (01) | LOC: SPT 06:00 | PROVIDERS: PCP Family Medicine; Referring Provider Specialist; Visit Provider Specialist | DX: M17.0 Bilateral primary osteoarthritis of knee (principal) | CPT/HCPCS: 97110; 97116 ==

== ENCOUNTER 2020-06-05 06:00 | Outpatient (RCR) | payer MEDICARE, SELFPAY | END 2020-07-05 23:59 | disposition home or self-care (01) | LOC: SPT 06:00 | PROVIDERS: PCP Family Medicine; Referring Provider Specialist; Visit Provider Specialist | DX: M17.0 Bilateral primary osteoarthritis of knee (principal) | CPT/HCPCS: 97110 ==

== ENCOUNTER 2020-10-17 13:47 | Outpatient (CLI) | payer MEDICARE, SELFPAY ==
--- NOTE | 2020-10-17 13:54 | USCV_ITS ---
Libby Estevez Age: 80 Gender: F : 1940 Exam Date: 10/17/2020 14:01 Ordering Phys: Esther Christiansen Technologist: Exam Location: [facility] [place] Indication: post knee replacement with swelling PROCEDURES: On the left side, the common femoral, superficial femoral, profunda femoral, popliteal, posterior tibial, greater saphenous veins, and the peroneal trunk were identified and interrogated in the standard fashion. These veins were found to be easily compressible with spontaneous blood flow. In addition, the posterior tibial and peroneal trunk were evaluated. FINDINGS: Negative for DVT and superficial thrombus of left lower extremity CONCLUSIONS No evidence of left lower extremity DVT. Ran Rain MD (Electronically Signed) Final Date: 17 October 2020 15:21 S
== END 2020-10-17 13:48 | disposition home or self-care (01) ==
LOC: RAD 13:51
PROVIDERS: Visit Provider Nurse Practitioner Family
DX: R60.0 Localized edema (principal); Z96.652 Presence of left artificial knee joint
CPT/HCPCS: 93971

== ENCOUNTER 2021-01-09 11:01 | Outpatient (CLI) | payer MEDICARE, SELFPAY ==
--- NOTE | 2021-01-09 11:10 | XR_ITS ---
WS: [id number] Right knee, 3 views, 01/09/2021 Clinical Data: KNEE PAIN, RIGHT Comparison: Right knee, 10/25/2019. Findings: No fractures or dislocations are seen. The joint spaces are normal. The patella shows spurring of the posterior superior aspect. The soft tissues are unremarkable. There is a small spur of the medial femoral condyle. Vascular calcification of the superficial femora l artery is seen. 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 Kellgren-Blayne Classification: grade 1 (doubtful): doubtful joint space narr owing and possible osteophytic lipping
== END 2021-01-09 11:02 | disposition home or self-care (01) ==
PROVIDERS: Visit Provider Nurse Practitioner Family
DX: M25.561 Pain in right knee (principal)
CPT/HCPCS: 73564

== ENCOUNTER 2021-01-13 02:43 | Observation (INO) | payer MEDICARE, SELFPAY ==
[2021-01-13] VITALS (38 sets, daily range): BP systolic 131–237; BP diastolic 66–156; PULSE 50–92; RESP 10–25; TEMP 36.1–36.7; O2SAT 96–99; BMI 30.9
--- NOTE | 2021-01-13 03:15 | XRR_ITS ---
PROCEDURE INFORMATION: Exam: XR Chest Exam date and time: 01/13/2021 3:15 AM Age: 80 years old Clinical indication: Other: Hypertension; Patient HX: Patient presents to er hypertensive. ; Additional info: HTN TECHNIQUE: Imaging protocol: XR of the chest. Views: 1 view. COMPARISON: CR XR chest 1V portable [id number] 06/14/2019 8:07 PM FINDINGS: Lungs: Unremarkable. No consolidation. Pleural spaces: Unremarkable. No pleural effusion. No pneumothorax. Heart/Mediastinum: The heart is not enlarged. There is a hiatal hernia. The aortic arch is calcified. Bones/joints: Unremarkable. XR/XR chest 1V portable [id number] IMPRESSION: 1. Hiatal hernia. 2. No acute cardiopulmonary abnormality. Radiation Dose CTDIVOL = (mGy): DLP = (mGy-cm)
--- NOTE | 2021-01-13 03:16 | ECG_ITS ---
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 Measurements Intervals [place] Rate: 63 P: 13 ME: 149 QRS: 0 QRSD: 89 T: 66 QT: 376 QTc: 387 Interpretive Statements SINUS RHYTHM NONSPECIFIC ST & T-WAVE ABNORMALITY Compared to ECG 06/14/2019 23:35:25 No significant changes Electronically Signed On 01-13-2021 21:29:30 CDT by Kyrie Pitt M.D. [email or web address] [facility].[employer]/store/[id number] f
[2021-01-13] MEDS: amlodipine 10 mg Tablet PO (03:26)
[2021-01-13] MEDS: labetalol 5 mg/mL SDV 20mL 20 MG IVP ×2 (03:27→04:11)
--- NOTE | 2021-01-13 03:30 | ED_ITS ---
HPI - General Adult General: Chief complaint: General Medical Stated complaint: High Blood Pressure Time Seen by Provider: 01/13/21 02:59 History of Present Illness: HPI narrative: 80-year-old female who awoke this morning and did not go back to sleep. She checked her blood pressure, it was significantly elevated, up to 200/100 at home. She presents wanting to make sure that her machine was reading her blood pressure right asking for blood pressure to be checked. She also states that at the time her blood pressure was high at home, that her jaw felt strange and was mildly sore. This feeling is now gone. No shortness of breath, no diaphoresis, no nausea or vomiting. Also, no headache, numbness or tingling, trouble with speech, etc. Onset (ago): hour(s) Location: neck Radiation: non-radiation Severity: mild Quality: aching Pain Consistency: constant Associated symptoms: Reports headache(s); Deny chest pain, confusion, cough, diaphoresis, dyspnea, fevers/chills, short of breath, syncope or vomiting Treatments prior to arrival: aspirin Review of Systems Const: Denies: fever(s), chills or diaphoresis Card: Denies: chest pain or syncope Resp: Denies: dyspnea GI: Denies: vomiting Neuro: Reports: headache(s); Denies: confusion PFSH ED PFSH: Medical History (Updated 01/13/21 @ 06:14 by Cruzito Lemos DO) Dyslipidemia Former smoker GERD (gastroesophageal reflux disease) Hypertension Surgical History H/O knee surgery Family History Father CAD (coronary artery disease) Denies family history of Cancer Social History Smoking and tobacco status: never smoked Alcohol intake: never Lives independently: Yes Housing: House Physical Exam Const: COMMON NORMALS: no acute distress, patient oriented x3 and alert GENERAL APPEARANCE: cooperative Eye: COMMON NORMALS: Equal, round and reactive pupils present and EOMs intact bilaterally PUPIL: Yes Equal, round and reactive pupils present Chest: COMMONS NORMALS: normal inspection of the chest Resp: COMMON NORMALS: normal respiratory effort, No retractions and clear to auscultation bilaterally AUSCULTATION: clear to auscultation bilaterally Cardio: COMMON NORMALS: regular rate and regular rhythm RATE: regular rate RHYTHM: regular rhythm GI: COMMON NORMALS: Normal to inspection, nondistended, normoactive bowel sounds present Neuro: COMMON NORMALS: patient oriented x3 SENSORIUM/ORIENTATION: Yes alert Course Consultations: Consultation #1: [email or web address] Time: 06:14 Vital Signs: Vital signs: Vital Signs Temperature 96.9 F L 01/13/21 02:56 Pulse Rate 54 L 01/13/21 06:00 Respiratory Rate 16 01/13/21 06:00 Blood Pressure 160/70 01/13/21 06:00 Pulse Oximetry 99 01/13/21 06:00 MDM - General Adult MDM Narrative: Medical decision making narrative: 80-year-old female with significantly high blood pressure. She received a dose of labetalol as well as a dose of 10 mg of Norvasc. Blood pressure began to come down, but then increased again as labetalol wore off. She received a second dose of labetalol and a dose of Vasotec IV. Currently blood pressure is 117/67 with oxygen saturation 98% on room air and a heart rate of 60. Her laboratory is essentially benign. Her 2-hour troponin is in the lab. [06:09] delta troponin is 15. Blood pressure is 160/70. Because of significant change in troponin over baseline, she will be observed for 6-hour troponin any further testing necessary. She will get Nitropaste and aspirin here Lab Data: Labs: Lab Results 01/13/21 01/13/21 01/13/21 03:01 03:01 03:01 WBC 12.2 10^3/uL H 10 ^3/uL (4.0-10.0) RBC 4.96 10^6/uL 10^6 /uL (4.1-5.3) Hgb 14.2 g/dL g/dL (11.5-15.3) Hct 45.5 % % (37.0-47.0) MCV 91.7 fl fl (81-99) MCH 28.6 pg pg (28.0-34.0) MCHC 31.2 g/dL g/dL (30.0-36.0) RDW 13.7 % % (12.1-15.1) Plt Count 328 10^3/cmm 10^3 /cmm (130-400) MPV 13.0 fL H fL (7.4-10.4) Neut % (Auto) 68.6 % % Lymph % (Auto) 23.3 % % [place] % (Auto) 7.4 % % Eos % (Auto) 0.2 % % Baso % (Auto) 0.3 % % Neut # (Auto) 8.37 10^3/uL H 10 ^3/uL (1.8-7.7) Lymph # (Auto) 2.9 10^3/uL 10^3/ uL (0.8-4.8) [place] # (Auto) 0.9 10^3/uL 10^3/ uL (0.2-0.9) Eos # (Auto) 0.0 10^3/uL 10^3/ uL (0.0-0.8) Baso # (Auto) 0.0 10^3/uL 10^3/ uL (0.0-0.1) Nucleated RBC % (a uto) 0 % % Nucleated RBCs # 0.0 /100WBC /100W BC Sodium 137 mmol/L mmol/L (136-145) Potassium 4.3 mmol/L mmol/L (3.5-5.1) Chloride 101 mmol/L mmol/L (98-107) Carbon Dioxide 23 mmol/L mmol/L (22-29) Anion Gap 17.3 (5-19) BUN 25 mg/dL H mg/dL (8-23) Creatinine 1.0 mg/dL H mg/dL (0.5-0.9) GFR Calculation Not Reportable Glucose 86 mg/dL mg/dL (65-115) Calculated Osmolal ity 288 mOsm/kg mOsm/ kg (285-295) Calcium 10.0 mg/dL mg/dL (8.5-10.5) Total Bilirubin 0.2 mg/dL mg/dL (0.15-1.2) AST 16 U/L U/L (0-32) ALT 18 U/L U/L (0-33) Alkaline Phosphata se 99 IU/L IU/L (35-105) Troponin T Baselin e 10 ng/L ng/L (0-10) Troponin T 120 Min [place] Delta Troponin T NT-Pro-B Natriuret Pep 237 pg/mL pg/mL (0-450) Total Protein 7.2 g/dL g/dL (6.6-8.7) Albumin 4.8 g/dL g/dL (3.5-5.2) Globulin 2.4 g/dL g/dL (1.3-4.6) 01/13/21 05:03 WBC RBC Hgb Hct MCV MCH MCHC RDW Plt Count MPV Neut % (Auto) Lymph % (Auto) [place] % (Auto) Eos % (Auto) Baso % (Auto) Neut # (Auto) Lymph # (Auto) [place] # (Auto) Eos # (Auto) Baso # (Auto) Nucleated RBC % (a uto) Nucleated RBCs # Sodium Potassium Chloride Carbon Dioxide Anion Gap BUN Creatinine GFR Calculation Glucose Calculated Osmolal ity Calcium Total Bilirubin AST ALT Alkaline Phosphata se Troponin T Baselin e Troponin T 120 Min [place] 25.61 ng/L H ng/L (0-10) Delta Troponin T 15.61 ABS# H* ABS # (0-10) NT-Pro-B Natriuret Pep Total Protein Albumin Globulin Discharge Plan Discharge Patient Disposition: Placed in Observation Clinical Impression: Hypertensive emergency, Chest pain radiating to jaw Discharge Diet: Advance as tolerated Discharge Activity: Increase activity as tolerated Coding Level of Care Code ED Passenger Elevator Operator for Brennen Fwd Exam Detailed
[2021-01-13 03:37] LABS: Basophils % 0.3 %; Eosinophils % 0.2 %; Hematocrit 45.5 % (37.0-47.0); Hemoglobin 14.2 g/dL (11.5-15.3); Lymphocytes # 2.9 10^3/uL (0.8-4.8); Lymphocytes % 23.3 %; Mean Corpuscular HGB Conc 31.2 g/dL (30.0-36.0); Mean Corpuscular Hemoglobin 28.6 pg (28.0-34.0); Mean Corpuscular Volume 91.7 fl (81-99); Monocytes # 0.9 10^3/uL (0.2-0.9); Monocytes % 7.4 %; Neutrophils # 8.37 10^3/uL (1.8-7.7); Neutrophils % 68.6 %; Nucleated Red Blood Cells % 0 %; Platelet Count 328 10^3/cmm (130-400); Red Blood Count 4.96 10^6/uL (4.1-5.3); Red Cell Distribution Width 13.7 % (12.1-15.1); White Blood Count 12.2 10^3/uL (4.0-10.0)
[2021-01-13 03:49] LABS: Troponin(5th) Baseline 10 ng/L (0-10)
[2021-01-13 03:56] LABS: Alanine Aminotransferase 18 U/L (0-33); Albumin Level 4.8 g/dL (3.5-5.2); Alkaline Phosphatase 99 IU/L (35-105); Anion Gap 17.3 (5-19); Aspartate Amino Transferase 16 U/L (0-32); Blood Urea Nitrogen 25 mg/dL (8-23); Carbon Dioxide 23 mmol/L (22-29); Chloride 101 mmol/L (98-107); Globulin 2.4 g/dL (1.3-4.6); Glucose 86 mg/dL (65-115); NT Pro B Type Natriuretic Pept 237 pg/mL (0-450); Osmolality Calculated 288 mOsm/kg (285-295); Potassium 4.3 mmol/L (3.5-5.1); Sodium 137 mmol/L (136-145); Total Bilirubin 0.2 mg/dL (0.15-1.2); Total Protein 7.2 g/dL (6.6-8.7)
[2021-01-13] MEDS: enalaprilat 1.25 mg/mL Inj IVP (04:11)
--- NOTE | 2021-01-13 05:16 | ECG_ITS ---
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 Measurements Intervals [place] Rate: 55 P: 9 [place]: 159 QRS: 4 QRSD: 92 T: 30 QT: 424 QTc: 407 Interpretive Statements SINUS BRADYCARDIA Compared to ECG 01/13/2021 03:07:50 Sinus rhythm no longer present T-wave abnormality no longer present Electronically Signed On 01-13-2021 21:39:28 CDT by Kyrie Pitt M.D. [email or web address]'s daughters medical centerArt [facility].[employer]/store/OM/[id number]
[2021-01-13 05:51] LABS: Troponin 5 2HR 25.61 ng/L (0-10)
[2021-01-13 05:52] LABS: Troponin 5 2HR Delta 15.61 ABS# (0-10)
[2021-01-13] MEDS: nitroglycerin 1 gm/inch oint Pkt 2 INCH TOPICAL (06:16)
[2021-01-13] MEDS: enoxaparin 80 mg/0.8 mL Syringe SUBCUT (06:16)
[2021-01-13] MEDS: aspirin 325 mg Tablet PO (06:16)
[2021-01-13] MEDS: clopidogrel 300 mg Tablet PO (06:16)
--- NOTE | 2021-01-13 06:24 | PC.NURSE ---
report called to Maddi COMBS
--- NOTE | 2021-01-13 08:34 | USCV_ITS ---
Libby Estevez Age: 80 Gender: F : 1940 Exam Date: 01/13/2021 13:11 Ordering Phys: Pramod Graff MD Technologist: Cami Rasmussen [place] [facility] [place]: NSTEMI BP: 153 / 76 HR: 61 Rhythm: Other Technical Quality: Suboptimal MEASUREMENTS (Male / Female) Normal Values 2D ECHO LV Diastolic Diameter PLAX 3.6 cm 4.2 - 5.9 / 3.9 - 5.3 cm LV Systolic Diameter PLAX 1.5 cm LV Chamber Size 3.7 cm IVS Diastolic Thickness 1.5 cm 0.6 - 1.0 / 0.6 - 0.9 cm IVS Systolic Thickness 1.8 cm LVPW Diastolic Thickness 0.9 cm 0.6 - 1.0 / 0.6 - 0.9 cm LVPW Systolic Thickness 1.3 cm RV Chamber Size 2.3 cm LVOT Diameter 1.9 cm LV Ejection Fraction 2D Teich 88.2 % LV Ejection Fraction MOD 2C 62.5 % LV Ejection Fraction 2C AL 63.6 % LA Diameter 3.7 cm LA Width 3.6 cm LA Height 5.4 cm RA Width 2.0 cm RA Height 4.5 cm Aorta at Sinotubular Diameter 1.7 cm M-MODE LV Diastolic Diameter MM 5.3 cm 4.2 - 5.9 / 3.9 - 5.3 cm LV Systolic Diameter MM 2.8 cm LV Ejection Fraction MM Teich 78.5 % IVS Diastolic Thickness MM 0.9 cm 0.6 - 1.0 / 0.6 - 0.9 cm IVS Systolic Thickness MM 1.1 cm LVPW Diastolic Thickness MM 1.1 cm 0.6 - 1.0 / 0.6 - 0.9 cm LVPW Systolic Thickness MM 1.7 cm RV Diastolic Diameter MM 1.5 cm Aortic Annulus Diameter 2.7 cm LA Ao Ratio MM 1.6 MV E Point Septal Separation 0.3 cm DOPPLER AV Peak Velocity 195.0 cm/s LVOT Peak Velocity 159.0 cm/s AV Area Cont Eq vti 2.3 cm squared AV Area Cont Eq pk 2.3 cm squared MV Area PHT 3.9 cm squared Mitral E to A Ratio 0.9 MV E' Velocity 42.5 cm/s Mitral E to MV E' Ratio 9.8 Mitral E to LV E' Lateral Ratio 8.7 Mitral E to LV E' Septal Ratio 11.3 TR Peak Velocity 230.3 cm/s TR Peak Gradient 21.2 mmHg TV Peak E Velocity 41.0 cm/s Right Atrial Pressure 3.0 mmHg Pulmonary Artery Systolic Pressu 24.2 mmHg PV Peak Velocity 101.0 cm/s RV Acceleration Time 0.1 s RV Ejection Time 0.3 s RV AcT/ET 0.3 FINDINGS Left Ventricle Normal left ventricular size. LV systolic function is normal with EF of 60-65%.No regional wall motion abnormalities. Grade 1 diastolic dysfunction is seen. Right Ventricle The right ventricle is normal in size and function. Right Atrium The right atrium is normal in size. Left Atrium The left atrium is normal in size. Mitral Valve Structurally normal mitral valve without significant stenosis or prolapse. There is trace mitral regurgitation. Aortic Valve Calcified aortic valve without stenosis. There is no aortic regurgitation. Tricuspid Valve Structurally normal tricuspid valve without significant stenosis. Mild tricuspid regurgitation. RVSP is 20-25 mmHg. Pulmonic Valve Structurally normal pulmonic valve without significant stenosis. There is no pulmonic regurgitation. Pericardium Normal pericardium without effusion. Aorta Normal ascending aorta dimension. CONCLUSIONS LV systolic function is normal with EF of 60 to 65%. Grade 1 diastolic dysfunction is seen. Calcified aortic valve without significant stenosis. Trace mitral regurgitation is seen. Mild tricuspid regurgitation with normal right ventricular systolic pressure. Compared to prior echocardiogram from 06/15/2019, no significant changes as noted. Kyrie Pitt MD (Electronically Signed) Final Date: 14 January 2021 22:48 S
--- NOTE | 2021-01-13 09:16 | ECG_ITS ---
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 Measurements Intervals Advance Rate: 53 P: 2 NE: 157 QRS: -6 QRSD: 92 T: 19 QT: 431 QTc: 408 Interpretive Statements SINUS BRADYCARDIA MINIMAL VOLTAGE CRITERIA FOR LVH, CONSIDER NORMAL VARIANT [MEETS CRITERIA IN ONE OF: R(aVL), S(V1), R(V5), R(V5/V6)+S(V1)] Compared to ECG 01/13/2021 06:45:45 No significant changes Electronically Signed On 01-13-2021 21:35:50 CDT by Kyrie Pitt M.D. [id number]
[2021-01-13 09:40] LABS: Troponin 5 6HR 45.24 ng/L (0-10)
[2021-01-13 09:59] LABS: Chol HDL Ratio 2.42 mg/dL (0.0-4.40); Cholesterol 155 mg/dL (0-200); HDL Cholesterol 64 mg/dL (60-100); LDL Cholesterol Calculated 78 mg/dL (50-129); LDL HDL Ratio 1.22 RATIO (0.00-3.22); Thyroid Stimulating Hormone 1.31 uIU/mL (0.27-4.20); Triglycerides 64 mg/dL (0-150)
[2021-01-13 10:00] LABS: Troponin 5 6HR Delta 35.24 ng/L (0-12)
--- NOTE | 2021-01-13 10:06 | P.HP_ITS ---
Providers/Chief Complaint Admitting Physician: Sangeeta Newman MD Chief Complaint: High Blood Pressure History of Present Illness Libby Estevez is a 80 year old female with a past medical history of hypertension, hyperlipidemia, past history of stress testing in 2019 with a negative stress test and normal 3 times daily who presents to [facility] due to complaints of elevated blood pressure. Patient tells me that she lives alone by herself, lives in [place], she normally does not sleep well, she wakes up couple times during the night, she woke up at midnight and she just did not feel her normal self, so she checked her blood pressure and it was elevated in the 200s over 100s, so she checked it again but it remained elevated, so she decided to come to the emergency room. She denied any chest pain, no palpitations, no lightheadedness, dizziness, shortness of breath, but does report that she has some jaw discomfort, but she thought it was her dentures Review of Systems Const: Denies: fever(s), chills, fatigue or malaise Eyes: Denies: change in vision or blurry vision ENMT: Denies: nasal congestion Resp: Denies: dyspnea, productive cough, non-productive cough or wheezing GI: Denies: abdominal pain, nausea, vomiting, hematemesis, diarrhea or constipation : Denies: flank pain, dysuria or urinary frequency Musc: Denies: neck pain or back pain Skin/Breast: Denies: rash Neuro: Denies: headache(s), dizziness or vertigo Endo: Denies: polyuria or polydipsia Medications/Allergies Home Medications Medication Instructions Recorded Confirmed Last Taken Type Adult Multivitamin Gummies 400 mcg PO DAILY 06/14/19 06/28/20 06/14/19 History Lipitor 10 mg PO DAILY 06/14/19 06/28/20 06/14/19 History losartan 100 mg PO DAILY 06/14/19 06/28/20 06/14/19 History magnesium citrate See Rx Instructions .ROUTE .COMPLEX 06/14/19 06/28/20 Unknown History metoprolol tartrate 37.5 mg PO BID #60 tab 06/15/19 06/28/20 Unknown Rx aspirin 81 mg PO BEDTIME 01/13/21 01/13/21 Unknown History diltiazem HCl 180 mg PO DAILY 01/13/21 01/13/21 Unknown History prednisone 40 mg PO DAILY 01/13/21 01/13/21 Unknown History Allergies Allergy/AdvReac Type Severity Reaction Status Date / Time No Known Allergies Allergy Verified 06/28/20 11:25 PFSH Acute PFSH: Medical History (Updated 01/13/21 @ 10:21 by Pramod Graff MD) Dyslipidemia Former smoker GERD (gastroesophageal reflux disease) Hypertension Surgical History H/O knee surgery Family History Father CAD (coronary artery disease) Denies family history of Cancer Social History Smoking and tobacco status: never smoked Alcohol intake: never Lives independently: Yes Housing: House Vitals/I&O/Wt Last Vital Signs Temp 97.9 F 01/13/21 08:38 Pulse 55 L 01/13/21 08:38 Resp 13 01/13/21 08:38 BP 153/76 01/13/21 08:38 Pulse Ox 99 01/13/21 06:29 Weight last 48 hrs Weight 79.379 kg Physical Exam Const: COMMON NORMALS: no acute distress and patient oriented x3 HENMT: COMMON NORMALS: normocephalic HEAD & SCALP: normocephalic Eye: COMMON NORMALS: Equal, round and reactive pupils present and EOMs intact bilaterally GENERAL EYE: appearance normal, both eyes and all related structures PUPIL: Yes Equal, round and reactive pupils present Neck/C-Spine: COMMON NORMALS: full ROM, no lymphadenopathy, no JVD and Thyroid normal Lymph: LYMPHATIC: no lymphadenopathy noted Resp: COMMON NORMALS: normal respiratory effort, No retractions, No use of acc essory muscles and clear to auscultation bilaterally AUSCULTATION: clear to auscultation bilaterally Cardio: COMMON NORMALS: regular rate, regular rhythm, S1 normal heart sound present, S2 normal heart sound present, No gallops present (Cardio), No clicks present (Cardio) and No murmurs present (Cardio) RATE: regular rate RHYTHM: regular rhythm HEART SOUNDS: S1 normal heart sound present and S2 normal heart sound present GI: COMMON NORMALS: Normal to inspection, nondistended, normoactive bowel sounds present, Soft to palpation and non-tender PALPATION: Yes Soft to palpation Extremity: COMMON NORMALS: normal to inspection, full ROM and no pedal edema Neuro: COMMON NORMALS: patient oriented x3, CN's II-XII intact bilaterally, moves all extremities and no focal motor deficits Psych: COMMON NORMALS: mental status grossly normal, Normal thought process present and cooperative THOUGHT PROCESS: Normal thought process present Data : 01/13/21 03:01 01/13/21 03:01 A&P Assessment and plan (1) Hypertensive emergency: -Blood pressure was 237/156 -Now blood pressure is improved 153/76 -No chest pain complaints, shortness of breath, lightheadedness, dizziness, no strokelike symptoms -Continue home medications Status: Acute (2) NSTEMI (non-ST elevated myocardial infarction): -stress test in 2009 1. Myocardial perfusion imaging revealing small areas of slightly decreased persistent tracer uptake in the mid anterior wall region, most likely represent attenuation artifact. 2. Normal LV ejection fraction of 89%. 3. LV wall motion analysis revealing no gross wall motion normalities. 4. Normal LV volume. 5. Elevated transient ischemic dilatation index (1.3) may suggest endocardial ischemia. However the positive predictive value this finding is limited. Clinical correlation is recommended -echo in 2010 - Normal left ventricular size, systolic function and wall thickness, with no regional wall motion abnormalities. Normal left ventricular wall thickness. Normal diastolic filling pattern. Left ventricular ejection fraction is estimated at 65 %. Mildly increased right atrial size. Mildly increased left atrial size. Structurally normal mitral valve. Mild mitral valve regurgitation. 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
[2021-01-13] MEDS: famotidine 20 mg Tablet PO ×2 (10:44→18:15)
[2021-01-13] MEDS: losartan 50 mg Tablet 100 MG PO (10:44)
--- NOTE | 2021-01-13 13:45 | PM.CONSULT ---
Providers/Reason For Consult Consulting Physician/Specialty*: Kyrie Pitt MD/ Cardiology Reason for Consult*: Troponin elevation Requesting Physician: Dr Graff Attending Physician: Pramod Graff MD History of Present Illness History of Present Illness Libby Estevez is a 80 year old female with past medical history of hypertension presented to the hospital as woke up last night not feeling well. She had some jaw discomfort. Checked her blood pressure that was over 200 and decided to come to the hospital. Her bp was 237/156mmHg in the ER. Her troponin increased from 10 at baseline to 45 at 6 hours. EKG does not have ischemic changes. No prior cardiac history. Review of Systems Const: Denies: fever(s), chills, fatigue or malaise Eyes: Denies: change in vision or blurry vision ENMT: Denies: nasal congestion Resp: Denies: dyspnea, productive cough, non-productive cough or wheezing GI: Denies: abdominal pain, nausea, vomiting, hematemesis, diarrhea or constipation : Denies: flank pain, dysuria or urinary frequency Musc: Denies: neck pain or back pain Skin/Breast: Denies: rash Neuro: Denies: headache(s), dizziness or vertigo Endo: Denies: polyuria or polydipsia Meds/Allergies Home Medications and Allergies Home Medications Medication Instructions Recorded Confirmed Last Taken Type Adult Multivitamin Gummies 400 mcg PO DAILY 06/14/19 01/13/21 06/14/19 History atorvastatin [Lipitor] 10 mg PO DAILY 06/14/19 01/13/21 06/14/19 History losartan 100 mg PO DAILY 06/14/19 01/13/21 06/14/19 History magnesium citrate See Rx Instructions .ROUTE .COMPLEX 06/14/19 01/13/21 Unknown History metoprolol tartrate 37.5 mg PO BID #60 tab 06/15/19 01/13/21 Unknown Rx aspirin 81 mg PO BEDTIME 01/13/21 01/13/21 Unknown History diltiazem HCl 180 mg PO DAILY 01/13/21 01/13/21 Unknown History prednisone 40 mg PO DAILY 01/13/21 01/13/21 Unknown History Allergies Allergy/AdvReac Type Severity Reaction Status Date / Time No Known Allergies Allergy Verified 06/28/20 11:25 Current Medications Current Medications Generic Name Dose Route Start Last Admin Trade Name Freq PRN Reason Stop Dose Admin Enoxaparin Sodium 40 mg 01/13/21 09:00 01/13/21 10:12 Enoxaparin 40 Mg/0.4 Ml Syringe SUBCUT Not Given Q24H [facility] Famotidine 20 mg 01/13/21 09:00 01/13/21 10:44 Famotidine 20 Mg Tablet PO 20 mg BID LYNN Administration Losartan Potassium 100 mg 01/13/21 09:00 01/13/21 10:44 Losartan 50 Mg Tablet PO 100 mg DAILY LYNN Administration Metoprolol Tartrate 25 mg 01/13/21 09:00 01/13/21 10:12 Metoprolol Tartrate 25 Mg Tablet PO Not Given BID@0900,2100 LYNN PFSH Acute PFSH: Medical History (Updated 01/14/21 @ 16:15 by Kyrie Pitt M.D) Dyslipidemia Former smoker GERD (gastroesophageal reflux disease) Hypertension Surgical History H/O knee surgery Family History Father CAD (coronary artery disease) Denies family history of Cancer Social History Smoking and tobacco status: never smoked Alcohol intake: never Lives independently: Yes Housing: House Vitals/I&O/Wt Last Vital Signs Temp 97.9 F 01/13/21 08:38 Pulse 53 L 01/13/21 12:00 Resp 19 H 01/13/21 12:00 BP 131/66 01/13/21 12:00 Pulse Ox 96 01/13/21 12:00 Weight last 48 hrs Weight 175 lb Physical Exam Const: COMMON NORMALS: no acute distress and patient oriented x3 HENMT: COMMON NORMALS: normocephalic HEAD & SCALP: normocephalic Eye: COMMON NORMALS: Equal, round and reactive pupils present and EOMs intact bilaterally GENERAL EYE: appearance normal, both eyes and all related structures PUPIL: Yes Equal, round and reactive pupils present Neck/C-Spine: COMMON NORMALS: full ROM, no lymphadenopathy, no JVD and Thyroid normal Lymph: LYMPHATIC: no lymphadenopathy noted Resp: COMMON NORMALS: normal respiratory effort, No retractions, No use of accessory muscles and clear to auscultation bilaterally AUSCULTATION: clear to auscultation bilaterally Cardio: COMMON NORMALS: regular rate, regular rhythm, S1 normal heart sound present, S2 normal heart sound present, No gallops present (Cardio), No clicks present (Cardio) and No murmurs present (Cardio) RATE: regular rate RHYTHM: regular rhythm HEART SOUNDS: S1 normal heart sound present and S2 normal heart sound present GI: COMMON NORMALS: Normal to inspection, nondistended, normoactive bowel sounds present, Soft to palpation and non-tender PALPATION: Yes Soft to palpation Extremity: COMMON NORMALS: normal to inspection, full ROM and no pedal edema Neuro: COMMON NORMALS: patient oriented x3, CN's II-XII intact bilaterally, moves all extremities and no focal motor deficits Psych: COMMON NORMALS: mental status grossly normal, Normal thought process present and cooperative THOUGHT PROCESS: Normal thought process present A&P Assessment and plan (1) Hypertensive emergency: Status: Acute (2) Dyslipidemia: Status: Acute (3) Troponin level elevated: Status: Acute (4) Obesity: Status: Acute Patient has been admitted with hypertensive emergency. Troponin levels elevated secondary to demand ischemia vs type 1 NSTEMI. We will uptitrate oral meds to control BP better Given jaw discomfort with troponin elevation, we will proceed with stress test as symptoms are aypical Low sodium diet Order echocardiogram Thank you for involving us with care of this patient. We will continue to follow. 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
[2021-01-13] MEDS: spironolactone 25 mg Tablet PO (14:11)
--- NOTE | 2021-01-13 15:45 | ECG_ITS ---
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 Interpretive Statements NAME OF STUDY: LEXISCAN SESTAMIBI STRESS TEST INDICATION: [Elevated Troponin, ] Procedure: At the baseline, the blood pressure was 197/99 mmHg with a heart rate of 66 bpm. The electrocardiogram showed normal sinus rhythm, normal axis with normal ST and T's. The Lexiscan was infused over a period of 20 seconds. A total of 0.4 mg of Lexiscan was infused. The stress phase was continued for a total of 5 minutes. Heart rate was at the end of stress phase was 75 bpm and a blood pressure of 192/85 mmHg. The EKG at the peak infusion revealed since normal sinus rhythm with no significant ST-T wave changes. Sestamibi was injected 20 seconds after the Lexiscan infusion. Blood pressure at the end of recovery phase was 185/79 mmHg with a heart rate of 75 bpm. Conclusion: 1. Normal EKG response to Lexiscan infusion 2. No Lexiscan induced chest pain or cardiac arrhythmia. 3. Normal blood pressure and heart rate response. 4. Sestamibi/sestamibi perfusion scan pending; see separate report. Electronically Signed On 02-12-2021 10:26:05 TICKET SALES SUPERVISOR by Kyrie Pitt M.D. [id number]
--- NOTE | 2021-01-13 19:51 | PC.NURSE ---
Shift Note Frequent safety and comfort rounds continue. Orders and/or nursing care completed as indicated. Patient monitored for response to intervention and treatment(s). Education provided includes no caffeine for 24 hrs prior to lexiscan stress test on Friday, new meds actions and possible side effects . Patient and/or event sales representative verbalizes understanding. Will continue to monitor.
[2021-01-13] MEDS: atorvastatin 40 mg Tablet PO (23:17)
[2021-01-13] MEDS: metoprolol tartrate 25 mg Tablet PO (23:23)
[2021-01-14] VITALS (87 sets, daily range): BP systolic 137–206; BP diastolic 66–124; PULSE 48–77; RESP 8–24; TEMP 36.6–37; O2SAT 95–100
[2021-01-14 04:00] LABS: Basophils # 0.1 10^3/uL (0.0-0.1); Basophils % 0.7 %; Eosinophils # 0.2 10^3/uL (0.0-0.8); Eosinophils % 2.3 %; Hematocrit 37.2 % (37.0-47.0); Hemoglobin 11.5 g/dL (11.5-15.3); Lymphocytes # 2.4 10^3/uL (0.8-4.8); Mean Corpuscular HGB Conc 30.9 g/dL (30.0-36.0); Mean Corpuscular Hemoglobin 28.4 pg (28.0-34.0); Mean Corpuscular Volume 91.9 fl (81-99); Mean Platelet Volume 12.5 fL (7.4-10.4); Monocytes # 0.6 10^3/uL (0.2-0.9); Monocytes % 8.9 %; Neutrophils # 3.68 10^3/uL (1.8-7.7); Neutrophils % 52.8 %; Nucleated Red Blood Cells % 0 %; Platelet Count 242 10^3/cmm (130-400); Red Blood Count 4.05 10^6/uL (4.1-5.3); Red Cell Distribution Width 13.9 % (12.1-15.1)
[2021-01-14 04:31] LABS: Alanine Aminotransferase 13 U/L (0-33); Albumin Level 3.4 g/dL (3.5-5.2); Alkaline Phosphatase 69 IU/L (35-105); Aspartate Amino Transferase 11 U/L (0-32); Blood Urea Nitrogen 20 mg/dL (8-23); Calcium 8.6 mg/dL (8.5-10.5); Carbon Dioxide 23 mmol/L (22-29); Chloride 107 mmol/L (98-107); Glucose 81 mg/dL (65-115); Magnesium 1.9 mg/dL (1.7-2.3); Osmolality Calculated 294 mOsm/kg (285-295); Sodium 141 mmol/L (136-145); Total Bilirubin 0.3 mg/dL (0.15-1.2); Total Protein 5.4 g/dL (6.6-8.7)
[2021-01-14 05:11] LABS: Troponin T (5th) Once 21 ng/L (0-10)
[2021-01-14] MEDS: amlodipine 10 mg Tablet PO (08:54)
[2021-01-14] MEDS: losartan 50 mg Tablet 100 MG PO (08:54)
[2021-01-14] MEDS: metoprolol tartrate 25 mg Tablet PO ×2 (08:54→20:45)
[2021-01-14] MEDS: aspirin 81 mg EC Tablet PO (08:54)
[2021-01-14] MEDS: famotidine 20 mg Tablet PO ×2 (08:54→17:07)
[2021-01-14] MEDS: spironolactone 25 mg Tablet PO (08:54)
[2021-01-14] MEDS: enoxaparin 40 mg/0.4 mL Syringe SUBCUT (08:55)
[2021-01-14] MEDS: hydroCHLOROthiazide 25 mg Tablet 12.5 MG PO (11:10)
--- NOTE | 2021-01-14 12:00 | PC.NURSE ---
Pt stated she is having left lower quadrant abdominal cramps due to constipation. Notified Educated pt on getting up and moving around her room. 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
--- NOTE | 2021-01-14 14:03 | P.PN_ITS ---
Subjective Subjective: Interval history: States currently she is doing okay. Denies chest pain or pressure. Not having trouble breathing. States she is constipated and request for something to help her go. Vitals/I&O/Wt Last Vital Signs Temp 98.5 F 01/14/21 11:46 Pulse 64 01/14/21 11:46 Resp 20 H 01/14/21 11:46 BP 160/80 01/14/21 13:40 Pulse Ox 95 01/14/21 11:46 01/13/21 01/14/21 01/14/21 22:59 06:59 14:59 Intake Total 720 / 1440 942 / 942 Balance 720 / 1440 942 / 942 Weight last 48 hrs Weight 79.379 kg Physical Exam Const: COMMON NORMALS: no acute distress and patient oriented x3 HENMT: COMMON NORMALS: oropharynx normal Neck/C-Spine: COMMON NORMALS: no JVD Resp: COMMON NORMALS: normal respiratory effort and clear to auscultation bilaterally AUSCULTATION: clear to auscultation bilaterally Cardio: COMMON NORMALS: no JVD, regular rhythm, S1 normal heart sound present, S2 normal heart sound present and No murmurs present (Cardio) RHYTHM: regular rhythm HEART SOUNDS: S1 normal heart sound present and S2 normal heart sound present GI: COMMON NORMALS: Normal to inspection, nondistended, normoactive bowel sounds present, Soft to palpation and non-tender PALPATION: Yes Soft to palpation Extremity: COMMON NORMALS: no joint enlargement and no pedal edema Neuro: COMMON NORMALS: patient oriented x3 and moves all extremities Skin: COMMON NORMALS: no rashes or lesions noted GENERAL SKIN EXAM: no rashes or lesions noted Data : 01/14/21 03:51 01/14/21 03:51 A&P Assessment and plan (1) NSTEMI (non-ST elevated myocardial infarction): Plan for stress test tomorrow. N.p.o. after midnight. Echo has been taken, pending interpretation. Follow-up. Continue aspirin, statin, beta-renetta. -air sampling and monitoring Status: Acute (2) Hypertensive emergency: Blood pressure as high as 206/124 during my visit, but spontaneously decreasing to 160/80. She states that she tenses her arm up due to discomfort with the blood pressure cuff. Suspect the values are at least in part falsely elevated due to this. Status: Acute (3) Dyslipidemia: Status: Acute Additional A&P Information Constipation: Bowel regimen Attestations Medical Necessity Statement*: Continue hospitalization for assessment of possible NSTEMI, further risk stratification. 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
--- NOTE | 2021-01-14 16:19 | P.PN_ITS ---
Subjective Subjective: Interval history: Patient is doing well. Her blood pressure is still very high. Again >200mmHg systolic Vitals/I&O/Wt Last Vital Signs Temp 98.5 F 01/14/21 11:46 Pulse 64 01/14/21 11:46 Resp 20 H 01/14/21 11:46 BP 160/80 01/14/21 13:40 Pulse Ox 95 01/14/21 11:46 01/14/21 01/14/21 01/14/21 06:59 14:59 22:59 Intake Total 942 / 942 Balance 942 / 942 Weight last 48 hrs Weight 175 lb Physical Exam Const: COMMON NORMALS: no acute distress and patient oriented x3 HENMT: COMMON NORMALS: normocephalic HEAD & SCALP: normocephalic Eye: COMMON NORMALS: Equal, round and reactive pupils present and EOMs intact bilaterally GENERAL EYE: appearance normal, both eyes and all related st ructures PUPIL: Yes Equal, round and reactive pupils present Neck/C-Spine: COMMON NORMALS: full ROM, no lymphadenopathy, no JVD and Thyroid normal Lymph: LYMPHATIC: no lymphadenopathy noted Resp: COMMON NORMALS: normal respiratory effort, No retractions, No use of accessory muscles and clear to auscultation bilaterally AUSCULTATION: clear to auscultation bilaterally Cardio: COMMON NORMALS: regular rate, regular rhythm, S1 normal heart sound present, S2 normal heart sound present, No gallops present (Cardio), No clicks present (Cardio) and No murmurs present (Cardio) RATE: regular rate RHYTHM: regular rhythm HEART SOUNDS: S1 normal heart sound present and S2 normal heart sound present GI: COMMON NORMALS: Normal to inspection, nondistended, normoactive bowel soun ds present, Soft to palpation and non-tender PALPATION: Yes Soft to palpation Extremity: COMMON NORMALS: normal to inspection, full ROM and no pedal edema Neuro: COMMON NORMALS: patient oriented x3, CN's II-XII intact bilaterally, moves all extremities and no focal motor deficits Psych: COMMON NORMALS: mental status grossly normal, Normal thought process present and cooperative THOUGHT PROCESS: Normal thought process present Data : 01/14/21 03:51 01/14/21 03:51 A&P Assessment and plan (1) Hypertensive emergency: Status: Acute (2) Dyslipidemia: Status: Acute (3) Troponin level elevated: Status: Acute (4) Obesity: Status: Acute Patient has been admitted with hypertensive emergency. Troponin levels elevated secondary to demand ischemia vs type 1 NSTEMI. We will add HCTZ 12.5mg daily and uptitrate to 25mg daily if blood pressure still stays high. Plan for stress test tomorrow. Low sodium diet ECHO performed. Will await interpretation. Thank you for involving us with care of this patient. We will continue to follow. Please call with questions Attestations Medical Necessity Statement*: Care expected to cross 2 midnights. Coding Level of Care Code Acute Financial Services Specialist for [facility] Chavarria Diagnoses Hypertensive emergency I16.1 Dyslipidemia E78.5 Troponin level elevated R77.8 Obesity E66.9
[2021-01-14] MEDS: polyethylene glycol 3350 Pkt 17 gm PO (17:07)
--- NOTE | 2021-01-14 20:27 | PC.NURSE ---
shift note pt is alert, orientedx4 all shift. denies any chest pain or discomfort. Pt is ambulatory and up ad karely in her room w/o assistive devices. BP is in higher levels. 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 manual BP check ausculated 160/80. Educated pt on her new meds to control her BP. Educated on the prep prior to Lexiscan stress test such as no caffeine for 24 hrs. 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
[2021-01-14] MEDS: atorvastatin 40 mg Tablet PO (20:45)
[2021-01-15] VITALS (12 sets, daily range): BP systolic 150–207; BP diastolic 73–102; PULSE 62–80; RESP 14–24; TEMP 36.5–36.8; O2SAT 96–99
[2021-01-15 05:42] LABS: Basophils # 0.1 10^3/uL (0.0-0.1); Eosinophils # 0.3 10^3/uL (0.0-0.8); Eosinophils % 3.7 %; Hematocrit 40.6 % (37.0-47.0); Hemoglobin 12.7 g/dL (11.5-15.3); Lymphocytes # 1.9 10^3/uL (0.8-4.8); Lymphocytes % 26.8 %; Mean Corpuscular HGB Conc 31.3 g/dL (30.0-36.0); Mean Corpuscular Hemoglobin 28.2 pg (28.0-34.0); Mean Corpuscular Volume 90.2 fl (81-99); Mean Platelet Volume 12.7 fL (7.4-10.4); Monocytes # 0.8 10^3/uL (0.2-0.9); Monocytes % 11.5 %; Neutrophils # 4.01 10^3/uL (1.8-7.7); Neutrophils % 56.9 %; Nucleated Red Blood Cells % 0 %; Platelet Count 267 10^3/cmm (130-400); Red Cell Distribution Width 14.2 % (12.1-15.1); White Blood Count 7.1 10^3/uL (4.0-10.0)
[2021-01-15 06:33] LABS: Alanine Aminotransferase 13 U/L (0-33); Albumin Level 3.7 g/dL (3.5-5.2); Alkaline Phosphatase 72 IU/L (35-105); Anion Gap 14.4 (5-19); Aspartate Amino Transferase 13 U/L (0-32); Blood Urea Nitrogen 17 mg/dL (8-23); Calcium 9.3 mg/dL (8.5-10.5); Carbon Dioxide 26 mmol/L (22-29); Chloride 105 mmol/L (98-107); Globulin 2.1 g/dL (1.3-4.6); Glucose 90 mg/dL (65-115); Magnesium 2.1 mg/dL (1.7-2.3); Osmolality Calculated 293 mOsm/kg (285-295); Potassium 4.4 mmol/L (3.5-5.1); Sodium 141 mmol/L (136-145); Total Bilirubin 0.3 mg/dL (0.15-1.2); Total Protein 5.8 g/dL (6.6-8.7)
--- NOTE | 2021-01-15 07:00 | NMCV_ITS ---
NM jesica perf SPECT r/s* [id number] Libby Estevez Age: 80 Gender: F : 1940 Exam Date: 01/15/2021 06:57 Ordering Phys: Pramod Graff MD Technologist: JESSICA Kong Exam Location: [facility] Indications: HIGH BLOOD PRESSURE STRESS TEST Please [facility] IMAGE PROTOCOL Rest/Stress 1 Lexiscan Day Radiopharmaceutical Dose (mCi) Administration Site Administered by Rest: Tc-99m 10.9 IV Sestamibi Stress:Tc-99m 32.6 IV JESSICA Klein Sestamibi Rest: 15-Jan-2021 60 Discovery 630 Stress: 15-Jan-2021 30 Discovery 630 0.4mg Lexiscan. Images obtained in supine and prone position. SPECT RESULTS Technical Quality: Excellent Raw Data Analysis: Normal Image Corrections: No attenuation or motion correction applied Summed Stress Score: 0 Summed Rest Score: 0 Summed Difference Score: 0 PERFUSION FINDINGS SPECT images demonstrate homogeneous tracer distribution throughout the myocardium. FUNCTIONAL RESULTS (calculated via Gated SPECT) Stress Image LV EF (%): 87 Stress EDV (mL):52 TID: 0.9 Stress ESV (mL):7 FUNCTIONAL FINDINGS: There is normal left ventricular systolic function. IMPRESSIONS 1. Normal myocardial perfusion imaging with no evidence of ischemia 2. LV systolic function is normal Kyrie Pitt MD (Electronically Signed) Final Date: 15 January 2021 10:19 S
[2021-01-15] MEDS: regadenoson 0.4 Mg/5 ml Syringe IVP (07:48)
[2021-01-15] MEDS: famotidine 20 mg Tablet PO ×2 (09:43→18:07)
[2021-01-15] MEDS: amlodipine 10 mg Tablet PO (09:43)
[2021-01-15] MEDS: aspirin 81 mg EC Tablet PO (09:43)
[2021-01-15] MEDS: losartan 50 mg Tablet 100 MG PO (09:44)
[2021-01-15] MEDS: spironolactone 25 mg Tablet PO (09:44)
[2021-01-15] MEDS: metoprolol tartrate 25 mg Tablet PO ×2 (09:44→21:28)
[2021-01-15] MEDS: psyllium powder Pkt 1 PACKET PO ×2 (09:45→09:59)
[2021-01-15] MEDS: enoxaparin 40 mg/0.4 mL Syringe SUBCUT (09:46)
[2021-01-15] MEDS: hydroCHLOROthiazide 25 mg Tablet 12.5 MG PO ×2 (09:57→11:36)
--- NOTE | 2021-01-15 10:21 | PM.PN ---
Subjective Subjective: Interval history: Patient is overall doing well. Denies any chest pain. Her blood pressure is still uncontrolled. Her nuclear stress test was performed today that showed no evidence of ischemia. Vitals/I&O/Wt Last Vital Signs Temp 98.2 F 01/15/21 03:46 Pulse 77 01/15/21 08:06 Resp 14 01/15/21 03:46 BP 201/102 01/15/21 09:44 Pulse Ox 97 01/15/21 03:46 01/14/21 01/15/21 01/15/21 22:59 06:59 14:59 Intake Total 360 / 1302 Balance 360 / 1302 Physical Exam Const: COMMON NORMALS: no acute distress and patient oriented x3 HENMT: COMMON NORMALS: normocephalic HEAD & SCALP: normocephalic Eye: COMMON NORMALS: Equal, round and reactive pupils present and EOMs intact bilaterally GENERAL EYE: appearance normal, both eyes and all related structures PUPIL: Yes Equal, round and reactive pupils present Neck/C-Spine: COMMON NORMALS: full ROM, no lymphadenopathy, no JVD and Thyroid normal Lymph: LYMPHATIC: no lymphadenopathy noted Resp: COMMON NORMALS: normal respiratory effort, No retractions, No use of accessory muscles and clear to auscultation bilaterally AUSCULTATION: clear to auscultation bilaterally Cardio: COMMON NORMALS: regular rate, regular rhythm, S1 normal heart sound present, S2 normal heart sound present, No gallops present (Cardio), No clicks present (Cardio) and No murmurs present (Cardio) RATE: regular rate RHYTHM: regular rhythm HEART SOUNDS: S1 normal heart sound present and S2 normal heart sound present GI: COMMON NORMALS: Normal to inspection, nondistended, normoactive bowel sounds present, Soft to palpation and non-tender PALPATION: Yes Soft to palpation Extremity: COMMON NORMALS: normal to inspection, full ROM and no pedal edema Neuro: COMMON NORMALS: patient oriented x3, CN's II-XII intact bilaterally, moves all extremities and no focal motor deficits Psych: COMMON NORMALS: mental status grossly normal, Normal thought process present and cooperative THOUGHT PROCESS: Normal thought process present Data : 01/15/21 04:55 01/15/21 04:55 A&P Assessment and plan (1) Hypertensive emergency: Status: Acute (2) Dyslipidemia: Status: Acute (3) Troponin level elevated: Status: Acute (4) Obesity: Status: Acute Patient has been admitted with hypertensive emergency. Troponin levels were elevated secondary to demand ischemia in setting of hypertensive emergency. Nuclear stress test performed today does not show any ischemia. Uptitrate her hydrochlorothiazide to 25 mg daily as blood pressure is uncontrolled. Add hydralazine 50 mg 3 times daily. Low sodium diet Echocardiogram showed normal LV systolic function. No significant valvular heart disease Thank you for involving us with care of this patient. We will continue to follow. Please call with questions Attestations Medical Necessity Statement*: Care expected to cross 2 midnights. Coding Level of Care Code Acute Meteorological Observer for Brennen Chavarria Diagnoses Hypertensive emergency I16.1 Dyslipidemia E78.5 Troponin level elevated R77.8 Obesity E66.9
--- NOTE | 2021-01-15 11:21 | PM.PN ---
Subjective Subjective: Interval history: States she is feeling well. Discussed with her blood pressure is high 207/80. She states she is asymptomatic. Vitals/I&O/Wt Last Vital Signs Temp 98.3 F 01/15/21 10:00 Pulse 80 01/15/21 10:00 Resp 19 H 01/15/21 10:00 BP 207/80 01/15/21 10:50 Pulse Ox 99 01/15/21 10:50 01/14/21 01/15/21 01/15/21 22:59 06:59 14:59 Intake Total 360 / 1302 Balance 360 / 1302 Physical Exam Const: COMMON NORMALS: no acute distress and patient oriented x3 HENMT: COMMON NORMALS: oropharynx normal Neck/C-Spine: COMMON NORMALS: no JVD Resp: COMMON NORMALS: normal respiratory effort and clear to auscultation bilaterally AUSCULTATION: clear to auscultation bilaterally Cardio: COMMON NORMALS: no JVD, regular rhythm, S1 normal heart sound present, S2 normal heart sound present and No murmurs present (Cardio) RHYTHM: regular rhythm HEART SOUNDS: S1 normal heart sound present and S2 normal heart sound present GI: COMMON NORMALS: Normal to inspection, nondistended, normoactive bowel sounds present, Soft to palpation and non-tender PALPATION: Yes Soft to palpation Extremity: COMMON NORMALS: no joint enlargement and no pedal edema Neuro: COMMON NORMALS: patient oriented x3 and moves all extremities Skin: COMMON NORMALS: no rashes or lesions noted GENERAL SKIN EXAM: no rashes or lesions noted Data : 01/15/21 04:55 01/15/21 04:55 A&P Assessment and plan (1) NSTEMI (non-ST elevated myocardial infarction): Stress test okay per discussion with cardiology, final report pending. Needs additional optimization of poorly controlled resistant hypertension. Echo with normal EF, grade 1 diastolic dysfunction. Trace MR. Mild TR. Continue aspirin, statin, beta-renetta. -hospital monitor Status: Acute (2) Hypertensive emergency: Blood pressure 207/80. Discussed with cardiology. Increase HCTZ to 25. Add hydralazine 3 times daily. She states that intermittently tenses her arm up due to discomfort with the blood pressure cuff. Suspect the values are at least in part falsely elevated due to this. Status: Acute (3) Dyslipidemia: Status: Acute Additional A&P Information Constipation: Bowel regimen Attestations Medical Necessity Statement*: Continue hospitalization for optimization of poorly controlled very high blood pressure. Coding Level of Care Code Acute Mains And Service Supervisor for Chg Fwd Diagnoses NSTEMI (non-ST elevated myocardial infarction) I21.4 Hypertensive emergency I16.1 Dyslipidemia E78.5
[2021-01-15] MEDS: hyDRALAzine 25 mg Tablet PO ×3 (11:36→21:28)
[2021-01-15] MEDS: polyethylene glycol 3350 Pkt 17 gm PO (18:07)
[2021-01-15] MEDS: atorvastatin 40 mg Tablet PO (21:28)
[2021-01-16] VITALS: BP 160/84; PULSE 67; RESP 16; O2SAT 97
[2021-01-16 04:00] VITALS: BP 137/81; PULSE 68; RESP 18; O2SAT 97
[2021-01-16 05:13] VITALS: PULSE 67
[2021-01-16 05:24] LABS: Alanine Aminotransferase 17 U/L (0-33); Albumin Level 4.3 g/dL (3.5-5.2); Alkaline Phosphatase 86 IU/L (35-105); Anion Gap 17.6 (5-19); Aspartate Amino Transferase 15 U/L (0-32); Blood Urea Nitrogen 21 mg/dL (8-23); Carbon Dioxide 24 mmol/L (22-29); Chloride 99 mmol/L (98-107); Globulin 2.6 g/dL (1.3-4.6); Glucose 102 mg/dL (65-115); Osmolality Calculated 285 mOsm/kg (285-295); Potassium 4.6 mmol/L (3.5-5.1); Sodium 136 mmol/L (136-145); Total Bilirubin 0.6 mg/dL (0.15-1.2); Total Protein 6.9 g/dL (6.6-8.7)
--- NOTE | 2021-01-16 07:09 | PM.PN ---
Subjective Subjective: Interval history: Patient is doing well. No complaints of chest pain. Lexiscan was negative for ischemia. Blood pressure is better controlled Vitals/I&O/Wt Last Vital Signs Temp 98.2 F 01/15/21 19:18 Pulse 67 01/16/21 05:13 Resp 18 01/16/21 04:00 BP 137/81 01/16/21 04:00 Pulse Ox 97 01/16/21 04:00 01/15/21 01/16/21 01/16/21 22:59 06:59 14:59 Intake Total 160 / 260 Balance 160 / 260 Physical Exam Const: COMMON NORMALS: no acute distress and patient oriented x3 HENMT: COMMON NORMALS: normocephalic HEAD & SCALP: normocephalic Eye: COMMON NORMALS: Equal, round and reactive pupils present and EOMs intact bilaterally GENERAL EYE: appearance normal, both eyes and all related structures PUPIL: Yes Equal, round and reactive pupils present Neck/C-Spine: COMMON NORMALS: full ROM, no lymphadenopathy, no JVD and Thyroid normal Lymph: LYMPHATIC: no lymphadenopathy noted Resp: COMMON NORMALS: normal respiratory effort, No retractions, No use of accessory muscles and clear to auscultation bilaterally AUSCULTATION: clear to auscultation bilaterally Cardio: COMMON NORMALS: regular rate, regular rhythm, S1 normal heart sound present, S2 normal heart sound present, No gallops present (Cardio), No clicks present (Cardio) and No murmurs present (Cardio) RATE: regular rate RHYTHM: regular rhythm HEART SOUNDS: S1 normal heart sound present and S2 normal heart sound present GI: COMMON NORMALS: Normal to inspection, nondistended, normoactive bowel sounds present, Soft to palpation and non-tender PALPATION: Yes Soft to palpation Extremity: COMMON NORMALS: normal to inspection, full ROM and no pedal edema Neuro: COMMON NORMALS: patient oriented x3, CN's II-XII intact bilaterally, moves all extremities and no focal motor deficits Psych: COMMON NORMALS: mental status grossly normal, Normal thought process present and cooperative THOUGHT PROCESS: Normal thought process present Data : 01/15/21 04:55 01/16/21 04:31 A&P Assessment and plan (1) Hypertensive emergency: (2) Dyslipidemia: (3) Troponin level elevated: Status: Resolved (4) Obesity: Patient has been admitted with hypertensive emergency. Troponin levels were elevated secondary to demand ischemia in setting of hypertensive emergency. Nuclear stress test performed did not show any ischemia. BP is better controlled. Continue current medications. Low sodium diet Echocardiogram showed normal LV systolic function. No significant valvular heart disease Thank you for involving us with care of this patient. Patient is stable to be discharged from cardiology standpoint. Please call with questions Attestations Medical Necessity Statement*: Care expected to cross 2 midnights Coding Level of Care Code Acute International Student Counselor for Brennen Chavarria Diagnoses Hypertensive emergency I16.1 Dyslipidemia E78.5 Troponin level elevated R77.8 Obesity E66.9
[2021-01-16] MEDS: psyllium powder Pkt 1 PACKET PO (08:37)
[2021-01-16] MEDS: polyethylene glycol 3350 Pkt 17 gm PO (08:37)
[2021-01-16 08:41] VITALS: BP 170/92
[2021-01-16] MEDS: metoprolol tartrate 25 mg Tablet PO (08:41)
[2021-01-16] MEDS: losartan 50 mg Tablet 100 MG PO (08:41)
[2021-01-16] MEDS: spironolactone 25 mg Tablet PO (08:41)
[2021-01-16] MEDS: hyDRALAzine 25 mg Tablet PO (08:41)
[2021-01-16] MEDS: hydroCHLOROthiazide 25 mg Tablet PO (08:42)
[2021-01-16] MEDS: enoxaparin 40 mg/0.4 mL Syringe SUBCUT (08:42)
[2021-01-16] MEDS: aspirin 81 mg EC Tablet PO (08:42)
[2021-01-16] MEDS: famotidine 20 mg Tablet PO (08:42)
[2021-01-16] MEDS: amlodipine 10 mg Tablet PO (08:42)
[2021-01-16 08:57] VITALS: BP 170/92; PULSE 64; RESP 18; TEMP 36.8; O2SAT 98
--- NOTE | 2021-01-16 10:47 | P.DS_ITS ---
Discharge Providers Date of Admission: 01/13/21 06:24 Date of Discharge: January 16, 2021 Attending Provider at Admission: Sangeeta Newman MD Attending Provider at Discharge: Thai Feng Diagnoses at Discharge Discharge Diagnosis (1) Hypertensive emergency: Status: Acute (2) Dyslipidemia: Status: Acute (3) Troponin level elevated: Status: Acute (4) Obesity: Status: Acute Reason for Visit Reason for Visit: High Blood Pressure Hospital Course Hospital Course Pleasant 80-year-old lady with history of HTN, HLD, former smoker, GERD, was admitted for assessment of management of elevated blood pressure, blood pressures in 200s over 100s, with triple elevation, positive delta, 10-25-45. EKG with sinus bradycardia 50s-60s. She received treatment with labetalol, started on amlodipine, received also Vasotec, Nitro-Bid. Most continued on losartan, metoprolol, started on HCTZ, spironolactone. Was seen by cardiology with recommendations for additional assessment of management. Echocardiogram was obtained, with finding of normal ejection fraction, grade 1 diastolic dysfunction, trace MR, mild TR. Underwent stress testing which showed no evidence of ischemia. With troponin elevation likely secondary to hypertensive emergency. Blood pressures intermittently still up into 200s systolic. HCTZ dose increased to 25 mg, additionally hydralazine added 25 mg 3 times daily. Blood pressure is currently better into 170s/90s. She remains asymptomatic. She is asked to continue measuring blood pressures, maintain log, follow-up in office. Please consider additional secondary causes of resistant hypertension, consider referral to hypertension specialist. Continue optimization of other chronic CAD risk factors. Physical Exam Const: COMMON NORMALS: no acute distress and patient oriented x3 HENMT: COMMON NORMALS: oropharynx normal Neck/C-Spine: COMMON NORMALS: no JVD Resp: COMMON NORMALS: normal respiratory effort and clear to auscultation bilaterally AUSCULTATION: clear to auscultation bilaterally Cardio: COMMON NORMALS: no JVD, regular rhythm, S1 normal heart sound present, S2 normal heart sound present and No murmurs present (Cardio) RHYTHM: regular rhythm HEART SOUNDS: S1 normal heart sound present and S2 normal heart sound present GI: COMMON NORMALS: Normal to inspection, nondistended, normoactive bowel sounds present, Soft to palpation and non-tender PALPATION: Yes Soft to palpation Extremity: COMMON NORMALS: no joint enlargement and no pedal edema Neuro: COMMON NORMALS: patient oriented x3 and moves all extremities Skin: COMMON NORMALS: no rashes or lesions noted GENERAL SKIN EXAM: no rashes or lesions noted Discharge Data Data Completed and Pending: Completed Studies During Hospitalization Category Date Time Status Sestamibi Stress Test Request Fariha ne Exams 01/13/21 15:45 Draft XR chest 1V jenny ble [id number] Stat Exams 01/13/21 03:15 Completed NM jesica perf SPECT r/s* [id number] Routin e Nuc Med 01/15/21 07:00 Completed CV. echo complete * [id number] Routine Ultrasound 01/13/21 08:34 Completed Labs from last 24 hours 01/16/21 04:31 Sodium 136 Potassium 4.6 Chloride 99 Carbon Dioxide 24 Anion Gap 17.6 BUN 21 Creatinine 1.2 H GFR Calculation Not Reportable Glucose 102 Calculated Osmolal ity 285 Calcium 10.0 Total Bilirubin 0.6 AST 15 ALT 17 Alkaline Phosphata se 86 Total Protein 6.9 Albumin 4.3 Globulin 2.6 Vitals: Last Vital Signs Temp 98.3 F 01/16/21 08:57 Pulse 64 01/16/21 08:57 Resp 18 01/16/21 08:57 BP 170/92 01/16/21 08:57 Pulse Ox 98 01/16/21 08:57 Discharge Plan Discharge Patient Disposition: Home Condition: Stable Prescriptions: New hydralazine 25 mg Tablet 25 mg PO TID Qty: 90 RF: 0 spironolactone 25 mg Tablet 25 mg PO DAILY Qty: 30 RF: 0 amlodipine 10 mg Tablet 10 mg PO DAILY Qty: 90 RF: 0 hydrochlorothiazide 25 mg Tablet 25 mg PO DAILY Qty: 30 RF: 0 Metamucil (with sugar) 3.4 gram Powder In Packet 1 packet PO BID Qty: 60 RF: 0 polyethylene glycol 3350 17 gram Powder In Packet 17 g PO BID Qty: 60 RF: 0 atorvastatin 40 mg Tablet 40 mg PO BEDTIME Qty: 90 RF: 0 Continued magnesium citrate Solution See Rx Instructions .ROUTE .COMPLEX RF: 0 losartan 100 mg tablet 100 mg PO DAILY RF: 0 Adult Multivitamin Gummies 200 mcg Tablet,Chewable 400 mcg PO DAILY RF: 0 metoprolol tartrate 25 mg Tablet 37.5 mg PO BID Qty: 60 RF: 0 diltiazem HCl 180 mg capsule,extended release 24hr 180 mg PO DAILY RF: 0 prednisone 20 mg tablet 40 mg PO DAILY RF: 0 aspirin 81 mg Tablet,Chewable 81 mg PO BEDTIME RF: 0 Discontinued atorvastatin [Lipitor] 10 mg tablet 10 mg PO DAILY RF: 0 Discharge Orders: Discharge Order (Routine); Ordered 01/16/21 Ordered By: Thai Feng Referrals: Esther Christiansen FNP [Referring] - 4-7 days Discharge Diet: Advance as tolerated Discharge Activity: Increase activity as tolerated Patient Instructions: Spironolactone (By mouth), Hydrochlorothiazide (By mouth), Hydralazine (By mouth), Amlodipine (By mouth), Chronic Hypertension (GEN) Activity Restrictions/Additional Instructions: Take your blood pressure medications that you would normally take in the morning when you get home. Do not take your blood pressure reading until tonight. Following, watch your blood pressures twice daily. Report numbers to your physician next week. Return to the emergency room for chest discomfort, shortne ss of breath, weakness, language problems, any other concerns. Please follow-up with your primary doctor with regards to resistant hypertension. Please discuss further adjustment of medications, further testing for secondary etiologies of resistant hypertension, and referral to hypertension specialist. Discharge Attestations Time Spent in Discharge Care*: greater than 30 min Quality Metrics Clinical Quality Measures During this hospital stay, did patient experience: None Coding Level of Care Code Acute g FW NC note Diagnoses Hypertensive emergency I16.1 Dyslipidemia E78.5 Troponin level elevated R77.8 Obesity E66.9
--- NOTE | 2021-01-16 11:17 | PC.CHAP ---
Pastoral Care Encounter/Spiritual Assessment Type of Contact [] Declined medical administrative specialist visit [] Patient/Family/Request visit [] Outpatient visit [] Follow-up visit [] Physician referral [] Code/Alert [x] Routine visit [] Staff referral [] Actively dying [] Patient sleeping [] Family support [] [] Out of room [] Palliative care [] [] Receiving care in room [] Pre-surgical visit [] Trauma [] Long length of stay [] ICU visit [] Other: Relational/Emotional Strength [] Patient feels connected with others/family/visitors/staff [] Distress [] Loneliness/isolation [] Abandonment Spirituality of Patient [x] Person of Rosemarie [] Attends Anabaptist of their Rosemarie [x] Believes in Prayer [] Reads Bible or Sikh materials [] There are Spiritual issues to be addressed Operating Room Scheduler Interventions [x] Prayer [] Active listening [] Non-anxious presence [] Spiritual/emotional support [] Crisis/trauma care [] Spiritual counseling [] Bereavement support [] Provided bereavement packet [] Provided Bible/devotional materials [] Provided toy/stuffed animal, coloring book to patient or family member [] Provided Communion [] Anointing/Neeses [] Salvation [] Completed spiritual assessment [] Other: Impact on Illness or Injury [] Angry [] Fearful [] Anxious [] Often cries [] Exhaustion [] Unable to work [] Unable to attend confucianist [] Unable to walk/stand [] Unable to read [] Unable to drive [] Unable to eat/drink [] Unable to sleep [] Unable to be with family [] Patient intubated [] Other: Summary Seemed like a confident hopeful person trying to get well, looking forward to being dismissed. Time spent with patient 2 minutes
[2021-01-16 13:11] VITALS: BP 170/92; PULSE 64; RESP 18; TEMP 36.8; O2SAT 98
--- NOTE | 2021-01-16 13:12 | PC.NURSE ---
Pt education provided, pt escorted via wheelchair to parking lot. No questions or concerns.
--- NOTE | 2021-01-18 09:04 | PC.SOCIAL ---
discharge follow up call made, spoke with patient. patient doesn't wish to go over new medications she states i looked at the paper and i'm taking them like it says patient c/o back pain, non radiating. denies chest pain or sob. patient is recording blood pressure as advised. patient has a follow up appointment friday with her pcp.
== END 2021-01-16 12:00 | disposition home or self-care (01) ==
LOC: ER 06:22 → CSU 06:24
PROVIDERS: Family Medicine; Admitting Provider Student in an Organized Health Care Education/Training Program; Emergency Provider Emergency Medicine; Visit Provider Internal Medicine
DX: I16.1 Hypertensive emergency (principal); I21.4 Non-ST elevation (NSTEMI) myocardial infarction; R77.8 Other specified abnormalities of plasma proteins; E78.5 Hyperlipidemia, unspecified; E66.9 Obesity, unspecified; Z68.31 Body mass index [BMI] 31.0-31.9, adult; I10 Essential (primary) hypertension; K21.9 Gastro-esophageal reflux disease without esophagitis; Z79.82 Long term (current) use of aspirin; Z82.49 Family history of ischemic heart disease and other diseases of the circulatory system; Z87.891 Personal history of nicotine dependence
CPT/HCPCS: 36415; 71045; 78452; 80053; 80061; 83735; 83880; 84443; 84484; 85025; 93005; 93017; 93306; 96372; 96374; 96375; 99285; A9500; G0378; J1650; J2785; J3490

== ENCOUNTER 2021-06-20 13:21 | Emergency (ER) | payer MEDICARE, SELFPAY ==
[2021-06-20 13:33] VITALS: BP 157/78; PULSE 65; RESP 18; TEMP 36.9; O2SAT 98; BMI 31.8
--- NOTE | 2021-06-20 14:03 | ED_ITS ---
HPI - Fall General: Chief Complaint: Fall Stated Complaint: Fell Time Seen by Provider: 06/20/21 13:44 Source: patient Mode of arrival: ambulatory Limitations: no limitations History of Present Illness: 81-year-old female presents emergency room complaining of a fall. She had tripped over the her shoes. She is wearing some flip-flops in front edges of the flip-flop caught on the ground and caused her to stumble and fall. She landed on outstretched arms and has abrasions bilaterally to the heels of her hands. She also has an abrasion to her nose. Was uncertain loss of consciousness she thinks she may have just been stunned. She is otherwise awake and alert complaining of pain in the arms neurologically is intact. MD complaint: fall Onset (ago): minute(s) Fall from: standing Fall witnessed: yes, by bystander Place fall occurred: street Loss of consciousness: Unsure Prolonged down time: no Symptoms prior to fall: none Context: tripped/slipped Location of injury: head and face Location of injury - extremities: Bilateral: arm (Bilateral wrist) Severity: moderate Associated symptoms-after fall: Denies abdominal pain, chest pain, confusion, difficulty walking, headache(s), hematuria, lightheadedness, neck pain, numbness, short of breath, vertigo or weakness Review of Systems Const: Denies: fever(s), chills, body aches, change in appetite, fatigue or malaise ENMT: Denies: throat pain, ear or mastoid pain, nasal discharge or nasal congestion Card: Denies: chest pain or lightheadedness Resp: Denies: dyspnea, productive cough or non-productive cough GI: Denies: abdominal pain : Denies: hematuria Musc: Denies: neck pain Skin/Breast: Denies: rash or pruritus Neuro: Denies: headache(s), difficulty walking, vertigo or confusion PFSH ED PFSH: Medical History Dyslipidemia Dyslipidemia Former smoker GERD (gastroesophageal reflux disease) Hypertension Hypertensive emergency Obesity Surgical History H/O knee surgery Family History Father CAD (coronary artery disease) Denies family history of Cancer Social History Smoking and tobacco status: former smoker Alcohol intake: never Lives independently: Yes Housing: House Physical Exam Const: COMMON NORMALS: no acute distress GENERAL APPEARANCE: cooperative and comfortable ORIENTATION/CONSCIOUSNESS: Yes awake, Yes oriented to person, Yes oriented to place and Yes oriented to time HENMT: COMMON NORMALS: normocephalic, hearing grossly normal bilaterally, external ears normal, EAC's normal, TM's normal bilaterally, Normal nasal mucous membranes and turbinates present, moist oral mucous membranes and oropharynx normal HEAD & SCALP: normocephalic NOSE: Normal nasal mucous membranes and turbinates present EXTERNAL EAR: Yes external ears normal EXTERNAL AUDITORY CANAL: EAC's normal TYMPANIC MEMBRANE: TM's normal bilaterally OTHER: Superficial abrasions on the bridge of the nose mild swelling no deformity Eye: COMMON NORMALS: Equal, round and reactive pupils present, EOMs intact bilaterally, conjunctivae normal and no scleral icterus CONJUNCTIVA: Yes conjunctivae normal PUPIL: Yes Equal, round and reactive pupils present Neck/C-Spine: COMMON NORMALS: full ROM, no lymphadenopathy, supple and no JVD Resp: COMMON NORMALS: normal respiratory effort, No retractions, No use of accessory muscles and clear to auscultation bilaterally AUSCULTATION: clear to auscultation bilaterally Cardio: COMMON NORMALS: no JVD, regular rate, regular rhythm and No murmurs present (Cardio) RATE: regular rate RHYTHM: regular rhythm GI: COMMON NORMALS: Soft to palpation and No hepatosplenomegaly present AUSCULTATION: Yes normoactive bowel sounds PALPATION: Yes Soft to palpation, No Tenderness to palpation present (GI), No Guarding due to palpation present (GI) and Yes No hepatosplenomegaly present Extremity: COMMON NORMALS: capillary refill normal, no clubbing, cyanosis or edema, no calf tenderness and no pedal edema OTHER: Abrasions at the base of both palms superficial no full-thickness lacerations no deformities. Able to manipulate the shoulders and elbows without any difficulty or pain. Did not attempt to manipulate wrist or hand since is being x-rayed and she has abrasions there. Neuro: SENSORIUM/ORIENTATION: Yes oriented to person, Yes oriented to place and Yes oriented to time Skin: COMMON NORMALS: no rashes or lesions noted GENERAL SKIN EXAM: no rashes or lesions noted Course Vital Signs: Vital signs: Vital Signs Temperature 98.4 F 06/20/21 13:33 Pulse Rate 66 06/20/21 16:33 Respiratory Rate 16 06/20/21 16:33 Blood Pressure 141/72 06/20/21 16:33 Pulse Oximetry 97 06/20/21 16:33 MDM - Fall Medical Decision Making Labs and imaging reviewed with the patient no fractures on either wrist wound was dressed and patient advised on wound care apply topical antibiotic ointment change dressing at least once a day. No facial bone fractures no intracranial injury. Will discharge home anti-inflammatories as needed rest ice follow-up as needed if has any worsening or change symptoms return. Medical Records I reviewed the patient's medical records. Lab Data I reviewed the patient's lab results. Radiology Impressions Cervical Spine CT 06/20/21 14:07 IMPRESSION: No acute findings. Elbow X-Ray 06/20/21 14:07 IMPRESSION: No acute abnormality. Face CT 06/20/21 14:07 IMPRESSION: No acute findings. Head CT 06/20/21 14:07 IMPRESSION: No acute intracranial abnormality. Wrist X-Ray 06/20/21 14:07 IMPRESSION: No acute abnormality. Discharge Plan Discharge Patient Disposition: Home Clinical Impression: Fall Condition: Stable Prescriptions: New diclofenac sodium 75 mg tablet,delayed release (DR/EC) 75 mg PO BID PRN (Reason: pain) Qty: 20 0RF mupirocin 2 % ointment 1 applic topical BID Qty: 22 0RF No Action acetaminophen 500 mg capsule 500 mg PO QID PRN (Reason: Pain) 0RF furosemide [Lasix] 20 mg tablet 20 mg PO DAILY Qty: 90 3RF losartan 100 mg tablet 100 mg PO DAILY 0RF Adult Multivitamin Gummies 200 mcg Tablet,Chewable 400 mcg PO DAILY 0RF diltiazem HCl 180 mg capsule,extended release 24hr 180 mg PO DAILY 0RF aspirin 81 mg Tablet,Chewable 81 mg PO BEDTIME 0RF amlodipine 10 mg Tablet 10 mg PO DAILY Qty: 90 0RF magnesium citrate Solution 150 ml PO DAILY PRN (Reason: Constipation) 0RF Hair, Skin and Nails Advanced 3.3 mg iron-25 mcg Tablet 1 tab PO DAILY 0RF Discharge Orders: Discharge ED (Routine); Ordered 06/20/21 Ordered By: Patel Dawson Referrals: Ga Sanchez, [Primary Care Provider] - Discharge Diet: Usual diet Discharge Activity: Increase activity as tolerated Patient Instructions: Opioid Safety Activity Restrictions/Additional Instructions: Topical antibiotic ointment to abrasions twice daily. Diclofenac as needed for aches and pains. Follow-up as needed. Coding Level of Care Code ED Mining Engineering Technologist for Brennen Chavarria
--- NOTE | 2021-06-20 14:07 | CTR_ITS ---
PROCEDURE INFORMATION: Exam: CT Cervical Spine Without Contrast Exam date and time: 06/20/2021 2:07 PM Age: 81 years old Clinical indication: Injury or trauma; Fall; Blunt trauma TECHNIQUE: Imaging protocol: Computed tomography images of the cervical spine without contrast. Radiation optimization: All CT scans at this facility use at least one of these dose optimization techniques: automated exposure control; mA and/or kV adjustment per patient size (includes targeted exams where dose is matched to clinical indication); or iterative reconstruction. COMPARISON: CT facial bones wo con* [id number] 06/20/2021 2:52 PM RADIATION DOSE METRICS: Total DLP (mGy-cm): 716.54 FINDINGS: Bones/joints: No acute fracture. Normal alignment. Discs/Spinal canal/Neural foramina: No significant disc protrusion. No severe spinal canal stenosis. No significant neural foraminal narrowing. Lungs: Lung apices are normal. Soft tissues: Unremarkable. CT/CT cervical spin wo con* [id number] IMPRESSION: No acute findings.
--- NOTE | 2021-06-20 14:07 | XR_ITS ---
WS: [id number] XR wrist LT w scaphoid [id number] REASON FOR EXAM: Trauma FINDINGS: No acute fracture or focal bone lesion. Joint spaces of the left wrist are intact and relatively well-preserved. No soft tissue abnormality. XR/XR wrist LT w scaphoid [id number] IMPRESSION: No acute abnormality.
--- NOTE | 2021-06-20 14:07 | XR_ITS ---
WS: [id number] XR elbow LT min 3V* [id number] REASON FOR EXAM: Trauma FINDINGS: No acute fracture or focal bone lesion. Joint spaces of the left elbow are intact and relatively well-preserved. No soft tissue abnormality XR/XR elbow LT min 3V* [id number] IMPRESSION: No acute abnormality.
--- NOTE | 2021-06-20 14:07 | XR_ITS ---
WS: [id number] XR elbow RT min 3V* [id number] REASON FOR EXAM: Trauma FINDINGS: No acute fracture or focal bone lesion. The joint spaces of the right elbow are intact and relatively well-preserved. No soft tissue abnormality. XR/XR elbow RT min 3V* [id number] IMPRESSION: No acute abnormality.
--- NOTE | 2021-06-20 14:07 | CTR_ITS ---
PROCEDURE INFORMATION: Exam: CT Head Without Contrast Exam date and time: 06/20/2021 2:07 PM Age: 81 years old Clinical indication: Injury or trauma; Fall; Blunt trauma (contusions or hematomas); Consciousness not specified TECHNIQUE: Imaging protocol: Computed tomography of the head without contrast. Radiation optimization: All CT scans at this facility use at least one of these dose optimization techniques: automated exposure control; mA and/or kV adjustment per patient size (includes targeted exams where dose is matched to clinical indication); or iterative reconstruction. COMPARISON: No relevant prior studies available. RADIATION DOSE METRICS: Total DLP (mGy-cm): 820.02 FINDINGS: Brain: No hemorrhage. Mild diffuse cerebral atrophy and sequela of chronic small vessel ischemic disease. No mass effect. Cerebral ventricles: No ventriculomegaly. Paranasal sinuses: Visualized sinuses are unremarkable. No fluid levels. Mastoid air cells: Visualized mastoid air cells are well aerated. Bones/joints: Unremarkable. No acute fracture. Soft tissues: Unremarkable. CT/CT head wo con* [id number] IMPRESSION: No acute intracranial abnormality.
--- NOTE | 2021-06-20 14:07 | XR_ITS ---
WS: [id number] XR wrist RT w scaphoid [id number] REASON FOR EXAM: Trauma FINDINGS: No acute fracture or focal bone lesion. Normal scaphoid. Joint spaces of the right wrist are intact and relatively well-preserved. No soft tissue abnormality. XR/XR wrist RT w scaphoid [id number] IMPRESSION: No acute abnormality.
--- NOTE | 2021-06-20 14:07 | CTR_ITS ---
PROCEDURE INFORMATION: Exam: CT Maxillofacial Without Contrast Exam date and time: 06/20/2021 2:07 PM Age: 81 years old Clinical indication: Injury or trauma; Fall; Blunt trauma (contusions or hematomas); Cheek bone and nose and ocular (eye or eyeball) and maxilla; Not specified TECHNIQUE: Imaging protocol: Computed tomography images of the face without contrast. Radiation optimization: All CT scans at this facility use at least one of these dose optimization techniques: automated exposure control; mA and/or kV adjustment per patient size (includes targeted exams where dose is matched to clinical indication); or iterative reconstruction. COMPARISON: CT head wo con* [id number] 06/20/2021 2:43 PM RADIATION DOSE METRICS: Total DLP (mGy-cm): 714.01 FINDINGS: Orbital cavities: Orbits are normal. Globes are unremarkable. Bones/joints: No acute fracture. Paranasal sinuses: Normal. No air-fluid levels. Soft tissues: Unremarkable. CT/CT facial bones wo con* [id number] IMPRESSION: No acute findings.
[2021-06-20] MEDS: HYDROcodone-acetaminophen 10-325 mg Tablet 1 TAB PO (14:16)
[2021-06-20 16:33] VITALS: BP 141/72; PULSE 66; RESP 16; O2SAT 97
== END 2021-06-20 16:35 | disposition home or self-care (01) ==
PROVIDERS: Emergency Provider Family Medicine; PCP Family Medicine
DX: S60.512A Abrasion of left hand, initial encounter (principal); S60.511A Abrasion of right hand, initial encounter; Z79.82 Long term (current) use of aspirin; E78.5 Hyperlipidemia, unspecified; I10 Essential (primary) hypertension; Z87.891 Personal history of nicotine dependence; W18.09XA Striking against other object with subsequent fall, initial encounter
CPT/HCPCS: 70450; 70486; 72125; 73080; 73110; 99283; A6446

== ENCOUNTER → 2021-10-31 15:26 | Outpatient (BNVA) | payer MEDICARE, SELFPAY | PROVIDERS: PCP Family Medicine; Visit Provider Internal Medicine | DX: I10 Essential (primary) hypertension (principal); E78.5 Hyperlipidemia, unspecified; Z87.891 Personal history of nicotine dependence | CPT/HCPCS: 99213; 99214 ==

== ENCOUNTER → 2022-02-14 09:24 | Outpatient (BNVA) | payer MEDICARE, SELFPAY | PROVIDERS: PCP Family Medicine; Visit Provider Family Medicine | DX: K21.9 Gastro-esophageal reflux disease without esophagitis (principal); I10 Essential (primary) hypertension; E78.5 Hyperlipidemia, unspecified; M17.12 Unilateral primary osteoarthritis, left knee; I89.0 Lymphedema, not elsewhere classified | CPT/HCPCS: 80053; 80061; 84443; 85025 ==

== ENCOUNTER → 2022-05-20 07:59 | Outpatient (BNVA) | payer MEDICARE, SELFPAY | PROVIDERS: PCP Family Medicine; Visit Provider Family Medicine | DX: N28.9 Disorder of kidney and ureter, unspecified (principal); I10 Essential (primary) hypertension; E78.5 Hyperlipidemia, unspecified | CPT/HCPCS: 80048 ==

== ENCOUNTER → 2022-07-31 15:20 | Outpatient (BNVA) | payer MEDICARE, SELFPAY | PROVIDERS: PCP Clinical Nurse Specialist Adult Health; Visit Provider Internal Medicine | DX: I10 Essential (primary) hypertension (principal); E78.5 Hyperlipidemia, unspecified; Z87.891 Personal history of nicotine dependence; Z79.82 Long term (current) use of aspirin | CPT/HCPCS: 99214 ==

== ENCOUNTER 2022-08-13 12:54 | Outpatient (CLI) | payer MEDICARE, SELFPAY ==
--- NOTE | 2022-08-13 13:20 | XRR_ITS ---
PROCEDURE INFORMATION: Exam: XR Left Foot Exam date and time: 08/13/2022 1:23 PM Age: 82 years old Clinical indication: Pain; Heel; Left; Additional info: Left heel pain TECHNIQUE: Imaging protocol: Radiologic exam of the left foot. Views: 3 or more views. COMPARISON: CR XR knees AP WB w LT lmt ORTH 09/29/2019 8:54 AM FINDINGS: Bones/joints: Negative for acute bony abnormality Soft tissues: Normal. XR/XR foot LT min 3V* [id number] IMPRESSION: No acute findings.
== END 2022-08-13 12:55 | disposition home or self-care (01) ==
PROVIDERS: PCP Clinical Nurse Specialist Adult Health; Visit Provider Clinical Nurse Specialist Adult Health
DX: M79.672 Pain in left foot (principal)
CPT/HCPCS: 73630

== ENCOUNTER → 2022-10-22 08:40 | Outpatient (BNVA) | payer MEDICARE, SELFPAY | PROVIDERS: PCP Clinical Nurse Specialist Adult Health; Visit Provider Clinical Nurse Specialist Adult Health | DX: I10 Essential (primary) hypertension (principal) | CPT/HCPCS: 80053; 80061; 84443; 85025 ==

== ENCOUNTER → 2023-01-21 09:52 | Outpatient (BNVA) | payer MEDICARE, SELFPAY | PROVIDERS: PCP Clinical Nurse Specialist Adult Health; Visit Provider Student in an Organized Health Care Education/Training Program | DX: M65.341 Trigger finger, right ring finger | CPT/HCPCS: 73130; 99204 ==

== ENCOUNTER 2023-03-05 05:36 | Day surgery (SDC) | payer MEDICARE, SELFPAY ==
[2023-03-05] VITALS (7 sets, daily range): BP systolic 158–210; BP diastolic 74–100; PULSE 54–67; RESP 12–18; TEMP 36.1–36.7; O2SAT 96–99; BMI 32.4
[2023-03-05] MEDS: acetaminophen 1,000 MG/100 ML PIGGYBACK 400 MG IV (06:15)
[2023-03-05] MEDS: scopolamine 1.5 Patch 1 PATCH TRANSDERMA (06:15)
[2023-03-05] MEDS: sodium chloride 0.9% 1,000 ML 30 ML IV (06:16)
[2023-03-05] MEDS: ketorolac 30 mg/mL INJ IVP (06:16)
--- NOTE | 2023-03-05 06:56 | W.PM.OPSUD ---
Surgery/Procedure H&P Update DATE OF PROCEDURE: March 05, 2023 DATE H&P PERFORMED: 01/21/23 H&P UPDATE INFORMATION: I have reviewed H&P completed within last 30 days, I have examined patient prior to procedure and No changes to prior documentation CHANGES TO PREVIOUS DOCUMENTATION: none PREOP DIAGNOSIS: Right ring finger trigger PRIMARY INDICATION FOR PROCEDURE: Right ring finger trigger PLANNED PROCEDURE: Operation Date: 03/05/23 07:00 Proposed Procedures p Right Ring Trigger Finger Release(Right) - Davion Doan DO
--- NOTE | 2023-03-05 06:58 | ANES.PREANE2 ---
Pre-Anesthetic Assessment Height/Weight: Height 1.6 m Weight 83.007 kg Temp Pulse Resp BP Pulse Ox O2 Del Method 98.1 F 67 18 210/87 99 Room Air 03/05/23 06:18 03/05/23 06:18 03/05/23 06:18 03/05/23 06:18 03/05/23 06:18 03/05/23 06:18 Operation Date: 03/05/23 07:00 Proposed Procedures p Right Ring Trigger Finger Release(Right) - Davion Vinton, DO Familial anesthetic complications: None Was Beta Nhung taken within 24 hours: N/A Was Clonidine taken within 24 hours: N/A Last intake: Intake Last Liquid Date 03/04/23 Last Liquid Time 17:00 Last Solid Date 03/04/23 Last Solid Time 17:00 Social No alcohol and No tobacco Exam alert, oriented x 3, clear to auscultation bilaterally and regular rate & rhythm Airway Mallampati: Class II Dentition: false CV/HEM Hypertension GI Gastroesophageal Reflux Disease Anesthetic Plan ASA status: 2 Anesthesia: MAC Risk of > 500 ml blood loss (7ml/kg in children): No Medications/Allergies Home Medications Medication Instructions Recorded Confirmed Last Taken Type acetaminophen 500 mg capsule 500 mg PO QID PRN Pain 03/06/21 03/04/23 03/04/23 History losartan 100 mg tablet 100 mg PO DAILY #90 tabs 04/26/22 03/04/23 03/04/23 Rx polyethylene glycol 3350 17 4 g PO DAILY 08/13/22 03/04/23 03/04/23 History gram/dose oral powder (Miralax) fluticasone propionate 50 1 spray intranasal BID #16 grams 10/22/22 03/04/23 Unknown Rx mcg/actuation nasal spray,suspension (Allergy Relief (fluticasone)) multivitamin 1 tab PO DAILY 01/21/23 03/04/23 03/04/23 History furosemide 20 mg tablet (Lasix) 20 mg PO DAILY #90 tabs 02/25/23 03/04/23 03/04/23 Rx benzonatate 100 mg capsule 100 mg PO TID PRN cough #45 caps 02/26/23 03/04/23 02/26/23 Rx diltiazem HCl 180 mg 180 mg PO DAILY 03/04/23 03/04/23 03/05/23 History capsule,extended release 24 hr, controlled (DILT-XR) Allergies Allergy/AdvReac Type Severity Reaction Status Date / Time No Known Allergies Allergy Verified 03/05/23 06:03 Current Medications Generic Name Dose Route Start Last Admin Trade Name Krishanq PRN Reason Stop Dose Admin Sodium Chloride 1,000 mls @ 30 mls/hr 03/05/23 06:00 03/05/23 06:16 Sodium Chloride 0.9% IV 03/06/23 05:59 30 mls/hr .Q24H LYNN Administration PFSH Anesthesia Medical History Dyslipidemia Essential hypertension with goal blood pressure less than 140/90 Former smoker Generalized osteoarthritis GERD (gastroesophageal reflux disease) Hypertension Hypertensive emergency Obesity Surgical History H/O knee surgery Hx of section Family History Father CAD (coronary artery disease) Denies family history of Cancer Social History Smoking and tobacco/nicotine status: former use of tobacco/nicotine Alcohol intake: never Substance/Drug Use: never Lives independently: Yes Housing: House Data Anesthesia Cardiac Studies: Echocardiogram 01/13/21 Echocardiogram Ultrasound 06/15/19 Sestamibi Stress Test (Cardiology) 01/13/21
--- NOTE | 2023-03-05 06:58 | W.PM.OPSFHP ---
Same Day Surgery H&P Indication for Procedure/HPI DATE OF PROCEDURE: March 05, 2023 CHIEF COMPLAINT/INDICATIONFOR SURGICAL PROCEDURE: Right ring finger trigger PREOP DIAGNOSIS: Right ring finger trigger PLANNED PROCEDURE: Operation Date: 03/05/23 07:00 Proposed Procedures p Right Ring Trigger Finger Release(Right) - Davion Doan DO Medications/Allergies* Home Medications Medication Instructions Recorded Confirmed Type acetaminophen 500 mg capsule 500 mg PO QID PRN Pain 03/06/21 03/04/23 History polyethylene glycol 3350 17 4 g PO DAILY 08/13/22 03/04/23 History gram/dose oral powder (Miralax) multivitamin 1 tab PO DAILY 01/21/23 03/04/23 History diltiazem HCl 180 mg 180 mg PO DAILY 03/04/23 03/04/23 History capsule,extended release 24 hr, controlled (DILT-XR) Allergies/Adverse Reactions Allergy/AdvReac Type Severity Reaction Status Date / Time No Known Allergies Allergy Verified 03/05/23 06:03 Current Medications: Generic Name Dose Route Start Last Admin Trade Name Freq PRN Reason Stop Dose Admin Sodium Chloride 1,000 mls @ 30 mls/hr 03/05/23 06:00 03/05/23 06:16 Sodium Chloride 0.9% IV 03/06/23 05:59 30 mls/hr .Q24H LYNN Administration Pertinent History/Comorbid Conditions* Medical History (Updated 02/03/23 @ 18:24 by Davion Doan DO) Essential hypertension with goal blood pressure less than 140/90 Generalized osteoarthritis Hypertensive emergency Dyslipidemia Obesity Former smoker Hypertension GERD (gastroesophageal reflux disease) Surgical History (Updated 08/13/22 @ 11:38 by Clay Lynch NP) Hx of section H/O knee surgery Family History (Updated 06/14/19 @ 23:51 by Prosper Valadez MD) CAD (coronary artery disease) Father Denies family history of Cancer Social History Smoking and tobacco/nicotine status: former use of tobacco/nicotine Alcohol intake: never Substance/Drug Use: never Lives independently: Yes Housing: House Pertinent Exam Findings alert, oriented x 3, operative site marked and procedure specific exam findings right hand There is full range of motion of the wrist with full flexion, extension, supination and pronation. The flexor digitorum profundus and sublimis are intact to each digit. There is tenderness directly over the A1 jhonathan of the right ring finger. There is palpable swelling noted with flexion and extension of the digit over the A1 jhonathan. Mechanical triggering noted. Decreased right ring finger range of motion secondary to pain as well as swelling. There is no demonstratable pain with CMC grind maneuver and no tenderness over the CMC joint. There is no thenar atrophy and no webspace contracture. Recommendations Surgery/Procedure today Other Plans: Plan to proceed with right ring finger trigger release today. No change in HPI from office visit. Coding Level of Care Code Acute Code for Chg Fwd
[2023-03-05] MEDS: ceFAZolin 2,000 MG in sodium chloride 0.9% (plus) 50 ML 100 MG IV (07:01)
[2023-03-05] MEDS: ROPivacaine 0.5% SDV 30 mL 25 MG INJECTION (07:37)
[2023-03-05] MEDS: BUPivacaine 0.5% INJ 10 mL 5 ML INJECTION (07:38)
--- NOTE | 2023-03-05 07:48 | P.OP_ITS ---
Operative Report Date of procedure: March 05, 2023 Surgeon: Davion Doan DO Clerical Warehouseman: Greg Doan PA-C, PA was necessary for assistance in this case with retraction and protection of neurovascular structures as well as assistance in hand positioning and assistance with wound closure and dressing application. Procedure: Preoperative diagnosis: Right ring finger trigger Post-op diagnosis: Same Procedure done: Right ring finger?trigger?release Surgeon: Davion Doan DO Estimated blood loss: 1cc Tourniquet time 7mins Complications: None Condition: stable Disposition: same day Brief History: Patient's been seen and worked up in the outpatient setting and findings consistent with preoperative diagnosis of right middle finger?trigger.? Patient is failed conservative treatment.? Continues to have mechanical locking and catching.? Severe pain as well.? We talked about treatment options nonoperative versus operative intervention.? ?Patient understands the risk benefits complication alternatives of surgical nonsurgical treatment options.? Understanding patient's risks with surgery he elects proceed with surgical intervention.? Consent obtained in the office.? Here today to proceed with surgical intervention.? All questions answered. Procedure: Patient was seen and evaluated in the preoperative holding area.? Consent was reviewed and signed with patient.? Seen evaluated by Anesthesia Department.? Once cleared for surgery was brought back to the operative suite.? Placed in supine position on the OR table all bony prominences well-padded patient properly secured to the bed.? Patient's right arm was then placed to the armboard.? A nonsterile tourniquet applied to the right upper arm.? Patient's right upper extremity was then prepped and draped in standard orthopedic fashion.? Final timeout performed.? Patient received appropriate preoperative antibiotics. Esmarch tourniquet was used exsanguinate the right upper extremity tourniquet insufflated to 250 mmHg. Under sterile aseptic technique local digital block was performed to the right ring finger.? Once appropriately anesthetized a standard horizontal incision was made centering over the A1 jhonathan following patient's flexor crease.? Sharp scalpel incision was made only through skin and then switched to Littler dissection scissors and spread longitudinally directly over the flexor tendon sheath.? I then mobilized both radially and ulnarly and Kasdan retractors were used and placed by my surgical assistant certified to protect neurovascular bundle.? Next I visualized the A1 jhonathan and this was incised with a scalpel.? I then switched to dissection scissors and released the A1 jhonathan both proximally as well as distally to its entirety.? Significant tendon sheath fluid was noted consistent with inflammation.? Mild fraying of the flexor tendons noted but no tear.? At this point I utilized a rag nail and pulled the tendons FDS and FDP out of the incision and no?triggering was noted.? I then had anesthesia wake up the patient and patient was able to actively flex and extend with no?triggering.? This point thorough irrigation was performed.? Tourniquet deflated hemostasis satisfactory with bipolar.? I then subsequently closed the incision with interrupted nylon suture.? Xeroform 4 x 4's, Kerlix and an Kobi wrap was applied for a bulky soft dressing.? Patient was then subsequently awakened from anesthesia and taken to PACU in stable condition tolerated procedure without issues. Disposition: Patient taken back in stable condition recovering well.? Patient will receive appropriate discharge instruction as well as pain medication postoperatively.? Patient to follow-up with me in the office in 2 weeks for repeat evaluation and incision check.? Patient understands that any questions or concerns and contact the office.? All questions answered.
--- NOTE | 2023-03-05 07:51 | W.PM.BPON ---
Date of Procedure: [March 05, 2023] Surgeon: [Dr. Franki SIN] Dragline Operator Helper(s): [Greg Doan physician associate] Procedure(s) performed: [Right ring finger trigger release] Findings of the procedure(s): [Right ring finger trigger] Estimated blood loss: [1 ml] Specimen(s) removed: [n/a] Post-operative diagnosis: [Right ring finger trigger]
--- NOTE | 2023-03-05 07:53 | PM.PACU ---
PACU note Narrative: Patient is an 82-year-old female that just underwent a right ring finger trigger release. Patient transferred to PACU in stable condition. Pain is well controlled. Dressing on hand is dry and in place. Patient's fingers are warm and well-perfused. Patient can wiggle fingers. normal cap refill under 2 seconds. Patient has normal elbow range of motion. Unable to assess sensation due to residual localized anesthetic. Exam: awake Disposition: discharged
--- NOTE | 2023-03-05 14:12 | ANE.PACU2 ---
Inpatient post-anesthesia follow up: Airway intact: Yes Vital signs: Temperature 97.0 F Pulse Rate 56 Respiratory Rate 16 Blood Pressure 176/82 Pulse Oximetry 98 Oxygen Delivery Me thod Room Air Oxygen Flow Rate Fraction of Inspir ed Oxygen Hydration adequate: Yes Nausea and vomiting: No Pain level: 1 Mental status: Baseline
== END 2023-03-05 08:52 | disposition home or self-care (01) ==
PROVIDERS: PCP Clinical Nurse Specialist Adult Health; Visit Provider Student in an Organized Health Care Education/Training Program
PROC: (CPT 26055; principal; 2023-03-05 07:00)
DX: M65.341 Trigger finger, right ring finger (principal); I10 Essential (primary) hypertension; K21.9 Gastro-esophageal reflux disease without esophagitis; E78.5 Hyperlipidemia, unspecified; Z87.891 Personal history of nicotine dependence; E66.9 Obesity, unspecified; Z68.32 Body mass index [BMI] 32.0-32.9, adult
CPT/HCPCS: 26055; J0131; J0690; J1885; J2704; J2795; J3010; J3490; J7030

== ENCOUNTER → 2023-03-20 09:04 | Outpatient (BNVA) | payer MEDICARE, SELFPAY | PROVIDERS: PCP Clinical Nurse Specialist Adult Health; Visit Provider Physician Assistant | DX: Z98.890 Other specified postprocedural states (principal) | CPT/HCPCS: 99024 ==

== ENCOUNTER → 2023-04-30 14:40 | Outpatient (BNVA) | payer MEDICARE, SELFPAY | PROVIDERS: PCP Clinical Nurse Specialist Adult Health; Visit Provider Internal Medicine | DX: I10 Essential (primary) hypertension (principal); R01.1 Cardiac murmur, unspecified; E78.5 Hyperlipidemia, unspecified | CPT/HCPCS: 99214 ==

== ENCOUNTER → 2023-05-07 09:45 | Outpatient (BNVA) | payer MEDICARE, SELFPAY | PROVIDERS: PCP Clinical Nurse Specialist Adult Health; Visit Provider Clinical Nurse Specialist Adult Health | DX: I10 Essential (primary) hypertension (principal); E78.5 Hyperlipidemia, unspecified | CPT/HCPCS: 80053; 80061; 85025 ==

== ENCOUNTER 2023-05-12 10:24 | Outpatient (CLI) | payer MEDICARE, SELFPAY ==
--- NOTE | 2023-05-12 11:00 | USCV_ITS ---
Herb Libby Age: 83 Gender: F : 1940 Exam Date: 05/12/2023 10:32 Ordering Phys: Kyrie Pitt M.D ([email or web address]) Technologist: BIANCA Exam Location: [facility] [place] Indication: Murmur BP: / HR: 53 Rhythm: Sinus Technical Quality: Adequate MEASUREMENTS (Male / Female) Normal Values 2D ECHO LV Diastolic Diameter PLAX 4.2 cm 4.2 - 5.9 / 3.9 - 5.3 cm LV Systolic Diameter PLAX 2.1 cm LV Chamber Size 2.4 cm IVS Diastolic Thickness 0.7 cm 0.6 - 1.0 / 0.6 - 0.9 cm IVS Systolic Thickness 1.1 cm LVPW Diastolic Thickness 1.1 cm 0.6 - 1.0 / 0.6 - 0.9 cm LVPW Systolic Thickness 1.3 cm RV Chamber Size 2.0 cm LVOT Diameter 2.0 cm LV Ejection Fraction 2D Teich 80.8 % LV Ejection Fraction MOD 2C 61.2 % LV Ejection Fraction 2C AL 62.2 % LA Diameter 3.0 cm LA Width 2.7 cm LA Height 2.8 cm RA Width 3.4 cm RA Height 3.6 cm Aorta at Sinotubular Diameter 2.3 cm IVC Diameter 1.4 cm M-MODE Aortic Annulus Diameter 2.5 cm LA Ao Ratio MM 1.6 MV E Point Septal Separation 0.4 cm DOPPLER AV Peak Velocity 183.0 cm/s LVOT Peak Velocity 136.0 cm/s AV Area Cont Eq vti 1.7 cm squared AV Area Cont Eq pk 2.4 cm squared MV Area PHT 3.5 cm squared Mitral E to A Ratio 1.2 MV E' Velocity 56.5 cm/s Mitral E to MV E' Ratio 11.5 Mitral E to LV E' Lateral Ratio 9.1 Mitral E to LV E' Septal Ratio 15.5 TR Peak Velocity 230.0 cm/s TR Peak Gradient 21.2 mmHg TR Mean Velocity 176.6 cm/s TR Mean Gradient 14.2 mmHg TR Velocity Time Integral 76.9 cm TV Peak E Velocity 66.0 cm/s Right Atrial Pressure 3.0 mmHg Pulmonary Artery Systolic Pressu 24.2 mmHg RV Acceleration Time 0.1 s RV Ejection Time 0.4 s RV AcT/ET 0.4 FINDINGS Left Ventricle Left ventricle is normal in size. LV systolic function is normal with EF of 60 to 65%. No regional wall motion abnormalities are seen. Right Ventricle Normal in size and function Right Atrium Normal in size Left Atrium Normal size Mitral Valve Structurally normal mitral valve. Mild mitral regurgitation Aortic Valve Aortic valve is thickened. Mild aortic stenosis with aortic valve area of 1.74 cm squared and mean gradient of 8 mmHg. Tricuspid Valve Mild tricuspid regurgitation. Pulmonary artery systolic pressure is normal. Pulmonic Valve Not well-visualized. Pericardium Normal Aorta Normal in size IVC Appears to be normal CONCLUSIONS LV systolic function is normal with EF of 60 to 65%. Mild mitral regurgitation Mild aortic stenosis with aortic valve area of 1.74 cm squared and mean gradient of 8 mmHg Mild tricuspid regurgitation Compared to prior echocardiogram from 2020, patient now has mild aortic stenosis. Kyrie Pitt MD (Electronically Signed) Final Date: 18 May 2023 21:13 S
== END 2023-05-12 10:25 | disposition home or self-care (01) ==
LOC: RAD 10:24
PROVIDERS: PCP Clinical Nurse Specialist Adult Health; Visit Provider Internal Medicine
DX: I08.3 Combined rheumatic disorders of mitral, aortic and tricuspid valves (principal)
CPT/HCPCS: 93306

== ENCOUNTER → 2023-07-31 09:06 | Outpatient (BNVA) | payer MEDICARE, SELFPAY | PROVIDERS: PCP Clinical Nurse Specialist Adult Health; Referring Provider Clinical Nurse Specialist Adult Health; Visit Provider Physician Assistant | DX: M17.12 Unilateral primary osteoarthritis, left knee (principal); Z96.652 Presence of left artificial knee joint | CPT/HCPCS: 73560; 73565; 99213 ==

== ENCOUNTER → 2023-11-05 13:27 | Outpatient (BNVA) | payer MEDICARE, SELFPAY | PROVIDERS: PCP Clinical Nurse Specialist Adult Health; Visit Provider Internal Medicine | DX: I10 Essential (primary) hypertension (principal); E78.5 Hyperlipidemia, unspecified; R01.1 Cardiac murmur, unspecified; Z87.891 Personal history of nicotine dependence | CPT/HCPCS: 99214 ==

== ENCOUNTER 2024-03-22 05:29 | Inpatient (IN) | payer MEDICARE, SELFPAY ==
[2024-03-22] VITALS (27 sets, daily range): BP systolic 120–177; BP diastolic 59–92; PULSE 60–98; RESP 11–30; TEMP 36.6–37; O2SAT 92–99; BMI 33.6
--- NOTE | 2024-03-22 05:42 | ED_ITS ---
HPI - Neuro Symptoms/Deficit 2 General: Chief Complaint: Neuro Symptoms/Deficit Stated Complaint: HAND NUMBNESS Time Seen by Provider: 03/22/24 05:35 History of Present Illness: 83-year-old female who says she woke up at 330 this morning, feeling normal. She said sometime around 4 AM, she began to notice that her hand on the left side did not want to work correctly while pouring her coffee. She says that it feels numb, and that it did not want to do what she wanted it to. She denied vision problems, strength problems in the lower extremity, or speech problems. She denies headache. No previous history of stroke. She does have a history of hypertension and dyslipidemia. She is a former smoker. Related Data Home Medications Medication Instructions Recorded Confirmed polyethylene glycol 3350 17 4 g PO DAILY 08/13/22 03/22/24 gram/dose oral powder (Miralax) multivitamin 1 tab PO DAILY 01/21/23 03/22/24 acetaminophen 500 mg capsule 500 mg PO BID Pain 11/05/23 03/22/24 celecoxib 100 mg capsule 100 mg PO DAILY 03/22/24 03/22/24 Previous Rx's Medication Instructions Recorded losartan 100 mg tablet 100 mg PO DAILY #90 tabs 05/08/23 diltiazem HCl 180 mg 180 mg PO DAILY #90 caps 05/26/23 capsule,extended release 24 hr, controlled (DILT-XR) orthotic insert #1 ea 08/27/23 azelastine 137 mcg (0.1 %) nasal 1 spray intranasal BID #30 mL 10/01/23 spray amlodipine 10 mg tablet 10 mg PO DAILY #90 tabs 01/06/24 furosemide 20 mg tablet (Lasix) 20 mg PO DAILY #90 tabs 02/13/24 Allergies Allergy/AdvReac Type Severity Reaction Status Date / Time No Known Allergies Allergy Verified 03/22/24 05:33 PFSH ED 2 PFSH: Medical History (Updated 03/23/24 @ 21:26 by Cruzito Lemos DO) Chronic kidney disease Allergic rhinitis Plantar fasciitis, bilateral Essential hypertension with goal blood pressure less than 140/90 Murmur Generalized osteoarthritis Dyslipidemia Obesity Former smoker GERD (gastroesophageal reflux disease) Surgical History Status post trigger finger release Trigger finger, right ring finger Hx of section H/O knee surgery left knee Family History Father CAD (coronary artery disease) Denies family history of Cancer Social History Smoking and tobacco/nicotine status: former use of tobacco/nicotine Alcohol intake: never Substance/Drug Use: never Lives independently: Yes Housing: House NIH stroke score 2 NIHSS: Level Of Consciousness - 1a: 0 Level Of Consciousness Questions - 1b: Both Correct Level Of Consciousness Commands - 1c: Both Correct Best Gaze - 2: Normal Visual Dunne - 3: Partial Hemianopia Facial Palsy - 4: N ormal Motor Arm Right - 5: No Drift Motor Arm Left - 5: No Drift Motor Leg Right - 6: No Drift Motor Leg Left - 6: Drift Limb Ataxia - 7: Present In One Limb Sensory - 8: Mild To Moderate Loss Best Language - 9: No Aphasia Dysarthia - 10: Normal Extinction And Inattention - 11: 0 Score: Total Score: 4 Physical Exam 2 Const: GENERAL APPEARANCE: cooperative HENMT: COMMON NORMALS: normocephalic, atraumatic and Normal external nose present HEAD & SCALP: normocephalic and atraumatic FACE & SINUS: normal facial exam and face symmetric NOSE: Normal external nose present Eye: COMMON NORMALS: Equal, round and reactive pupils present and EOMs intact bilaterally PUPIL: Yes Equal, round and reactive pupils present Neck/C-Spine: GENERAL: Yes trachea midline Chest: CHEST: Yes Symmetrical chest wall rise Resp: COMMON NORMALS: normal respiratory effort, No retractions, No use of accessory muscles and clear to auscultation bilaterally AUSCULTATION: clear to auscultation bilaterally Cardio: COMMON NORMALS: regular rate and regular rhythm RATE: regular rate RHYTHM: regular rhythm GI: COMMON NORMALS: Normal to inspection, nondistended, normoactive bowel sounds present Extremity: COMMON NORMALS: no pedal edema Neuro: YOGI COMA SCALE: document GCS findings Yogi coma scale eye opening: Spontaneous Aquilla coma scale verbal response: Orientated Yogi coma scale motor response: Obey commands Aquilla coma scale total score: 15 S ENSORY EXAM: Yes extremities (intact) Psych: COMMON NORMALS: speech normal SPEECH: Yes normal speech Skin: COMMON NORMALS: no rashes or lesions noted GENERAL SKIN EXAM: no rashes or lesions noted Course 2 Vital Signs: Vital signs: Vital Signs Temperature 97.9 F 03/22/24 20:38 Pulse Rate 90 03/23/24 18:00 Respiratory Rate 14 03/23/24 03:00 Blood Pressure 152/94 03/23/24 03:00 Pulse Oximetry 94 03/23/24 08:51 Oxygen Delivery Me thod Room Air 03/23/24 08:51 MDM - Neuro Symptoms/Deficit Medical Decision Making Initial blood pressure 177/92. Other parameters are normal. Stroke alert is called on the patient's arrival. By history, onset of symptoms is 30 minutes after the patient woke up, not wake up symptoms. NIH scale is a 4 . she does not have a headache. We have a call out to neurology at [facility] as they are covering stroke this morning. Head CT is completed, but not yet read by radiology. Head CT read by radiology. Negative for hemorrhage, edema, etc. CTA shows sigificant stenosis. particularly of the right internal carotid system. Consistent with symptoms. Neurology recommendations are TNcase, MRI as soon as available. they will be available for patient transfer should findings show concern for potential need for intervention. He will place recommendations on the chart. Spoke with out hospitalist team. They are willing to admit provided neurology recommendations are made. No worsening of symptoms post TNcase, but also no improvement. She will go to the ICU Lab Data 03/23/24 03:26 03/23/24 03:26 Radiology Impressions Head/Neck CTA 03/22/24 05:46 IMPRESSION: 1. 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 2. Intracranial venous sinuses are patent. 3. No acute intracranial findings. 4. Bilateral frontal and parietal lobe atrophy. IMPRESSION: 1. Severe stenosis in the proximal and distal segments of the right subclavian artery. 2. A calcified atherosclerotic plaque in the proximal segment of the right internal carotid artery, resulting in severe stenosis. 3. A calcified atherosclerotic plaque in the right carotid bulb, resulting in severe stenosis. 4. Severe stenosis at the origin of the right external carotid artery. 5. A calcified atherosclerotic plaque in the proximal segment of the left internal carotid artery, resulting in moderate stenosis. 6. A calcified atherosclerotic plaque in the left carotid bulb, resulting in moderate stenosis. REFERENCES: NASCET CRITERIA. The degree of stenosis in the cervical segment of the internal carotid artery is based on NASCET criteria. Normal is no stenosis. Mild is less than 50% stenosis. Moderate is 50-69% stenosis. Severe is 70% to 99% stenosis. Total occlusion is no detectable patent lumen. ADDENDUM: 03/22/24 0639 THIS REPORT CONTAINS FINDINGS THAT MAY BE CRITICAL TO PATIENT CARE. The findings and recommendations were verbally communicated via telephone conference with CRUZITO Finn by Dr. Ward on 03/22/2024 at 6:36 AM SHOE TREER. The findings were acknowledged and understood. Chest X-Ray 03/22/24 08:31 IMPRESSION: 1. No acute disease. 2. Additional details as above. Head CT 03/23/24 09:00 IMPRESSION: No acute pathology or significant interval change. Head MRI 03/23/24 09:07 IMPRESSION: 1. Innumerable punctate foci of restricted diffusion involving the RIGHT parietal occipital and temporal lobes. A few additional punctate foci involving the LEFT posterior frontal and parasagittal parietal lobes. Findings suspicious for embolic etiology involving multiple vascular territories. Large majority of the infarcts are on the RIGHT 2. No significant mass effect or midline shift. 3. No hemosiderin. 4. 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 Laboratory Results WBC 6.65 10^3/uL (3.29-11.43) 03/22/24 05:45 RBC 4.34 10^6/uL (3.85-5.65) 03/22/24 05:45 Hgb 13.20 g/dL (11.27-16.99) 03/22/24 05:45 Hct 41.4 % (36-47) 03/22/24 05:45 MCV 95.4 fl (85-98) 03/22/24 05:45 MCH 30.4 pg (27-33) 03/22/24 05:45 MCHC 31.9 g/dL (30-55) 03/22/24 05:45 RDW 12.4 % (12.1-15.1) 03/22/24 05:45 Plt Count 271 10^3/cmm (157-399) 03/22/24 05:45 MPV 12.0 fL (7.4-10.4) H 03/22/24 05:45 Neut % (Auto) 53.2 % 03/22/24 05:45 Lymph % (Auto) 32.6 % 03/22/24 05:45 Ness % (Auto) 9.0 % 03/22/24 05:45 Eos % (Auto) 3.9 % 03/22/24 05:45 Baso % (Auto) 1.1 % 03/22/24 05:45 Neut # (Auto) 3.54 10^3/uL (1.8-7.7) 03/22/24 05:45 Lymph # (Auto) 2.2 10^3/uL (0.8-4.8) 03/22/24 05:45 Ness # (Auto) 0.6 10^3/uL (0.2-0.9) 03/22/24 05:45 Eos # (Auto) 0.3 10^3/uL (0.0-0.8) 03/22/24 05:45 Baso # (Auto) 0.1 10^3/uL (0.0-0.1) 03/22/24 05:45 Nucleated RBC % (auto) 0 % 03/22/24 05:45 Nucleated RBCs # 0.0 /100WBC 03/22/24 05:45 PT 12.10 SECONDS (12.1-14.9) 03/22/24 05:45 INR 0.87 (0.8-1.2) 03/22/24 05:45 APTT 25.5 SECONDS (23.9-36.7) 03/22/24 05:45 Sodium 139 mmol/L (136-145) 03/22/24 05:45 Potassium 4.2 mmol/L (3.5-5.1) 03/22/24 05:45 Chloride 103 mmol/L (98-107) 03/22/24 05:45 Carbon Dioxide 22 mmol/L (22-29) 03/22/24 05:45 Anion Gap 18.2 (5-19) 03/22/24 05:45 BUN 24 mg/dL (8-23) H 03/22/24 05:45 Creatinine 1.3 mg/dL (0.5-0.9) H 03/22/24 05:45 GFR Calculation Not Reportable 03/22/24 05:45 Glucose 121 mg/dL (65-115) H 03/22/24 05:45 POC Glucose 111 mg/dL (70-110) H 03/22/24 05:41 Calculated Osmolality 293 mOsm/kg (285-295) 03/22/24 05:45 Calcium 9.7 mg/dL (8.5-10.5) 03/22/24 05:45 Total Bilirubin 0.4 mg/dL (0.15-1.2) 03/22/24 05:45 AST 24 U/L (0-32) 03/22/24 05:45 ALT 26 U/L (0-33) 03/22/24 05:45 Alkaline Phosphatase 89 U/L (35-105) 03/22/24 05:45 Total Protein 7.2 g/dL (6.6-8.7) 03/22/24 05:45 Albumin 4.7 g/dL (3.5-5.2) 03/22/24 05:45 Globulin 2.5 g/dL (1.3-4.6) 03/22/24 05:45 TSH 7.33 uIU/mL (0.27-4.20) H 03/22/24 05:45 Urine Color Yellow (Yellow) 03/22/24 06:36 Urine Appearance Clear (CLEAR) 03/22/24 06:36 Urine pH 7.0 (5-7) 03/22/24 06:36 Ur Specific [place] 1.021 (1.005-1.030) 03/22/24 06:36 Urine Protein Trace (Negative) A 03/22/24 06:36 Urine Glucose (UA) Negative (Normal) 03/22/24 06:36 Urine Ketones Negative (Negative) 03/22/24 06:36 Urine Blood Negative (Negative) 03/22/24 06:36 Urine Nitrate Negative (Negative) 03/22/24 06:36 Urine Bilirubin Negative (Negative) 03/22/24 06:36 Urine Urobilinogen 0.2 mg/dL (Negative) 03/22/24 06:36 Ur Leukocyte Esterase Negative (Negative) 03/22/24 06:36 Urine RBC 0-2 /hpf (0-2) 03/22/24 06:36 Urine WBC 0-5 /hpf (0-5) 03/22/24 06:36 Ur Squamous Epith Cells 0-5 /hpf (0-5) 03/22/24 06:36 Amorphous Sediment Not Reportable 03/22/24 06:36 Urine Bacteria None seen /hpf (NONE) 03/22/24 06:36 Hyaline Casts 2.46 /lpf 03/22/24 06:36 Urine Opiates Screen Negative ng/mL (Negative) 03/22/24 06:36 Ur Barbiturates Screen Negative ng/mL (Negative) 03/22/24 06:36 Ur Phencyclidine Scrn Negative ng/mL (Negative) 03/22/24 06:36 Ur Amphetamines Screen Negative ng/mL (Negative) 03/22/24 06:36 U Benzodiazepines Scrn Negative ng/mL (Negative) 03/22/24 06:36 Urine Cocaine Screen Negative ng/mL (Negative) 03/22/24 06:36 U Marijuana (THC) Screen Negative ng/mL (Negative) 03/22/24 06:36 All radiology interpretation(s) finalized by discharge Critical Care Time 2 Critical Care Time: Critical Care Time: Yes Total Critical Care Time: 45 Attestation: This case had a high probability of a clinically significant, sudden, or life threatening deterioration of this patient's condition which required my full and direct attention, intervention and personal management. Time independent of any procedures performed. Discharge Plan Discharge Patient Disposition: Admitted As Inpatient Admit Provider: Td Rain Clinical Impression: CVA (cerebral vascular accident) Condition: Critical Coding Level of Care Code ED Geochemistry Teacher for Brennen Chavarria
--- NOTE | 2024-03-22 05:43 | ECG_ITS ---
[facility]24-[facility]22 Pat Name: Libby Estevez Department: Room: Gender: Female Manager Fashion: : 1940 Requested By: Cruzito Garza Order Number: [id number] Julissa MD: Emelina Brito M.D. Measurements Intervals [place] Rate: 71 P: 60 KS: 167 QRS: 8 QRSD: 89 T: 79 QT: 384 QTc: 419 Interpretive Statements SINUS RHYTHM WITH OCCASIONAL SUPRAVENTRICULAR PREMATURE COMPLEXES Compared to ECG 01/13/2021 09:39:09 Sinus bradycardia no longer present Electronically Signed On 03-22-2024 19:24:33 STRAIGHTEDGE WORKER by Emelina Brito M.D. [email or web address]
--- NOTE | 2024-03-22 05:43 | CTR_ITS ---
PROCEDURE INFORMATION: Exam: CT Head Without Contrast Exam date and time: 03/22/2024 5:46 AM Age: 83 years old Clinical indication: Stroke-like symptoms; Ataxia; Lt upper extremity and lt lower extremity weakness; Additional info: Patient woke up this a. M. With left upper and lower ext weakness/numbness and ataxia. Last known well time of 0400. TECHNIQUE: Imaging protocol: Computed tomography of the head without contrast. Radiation optimization: All CT scans at this facility use at least one of these dose optimization techniques: automated exposure control; mA and/or kV adjustment per patient size (includes targeted exams where dose is matched to clinical indication); or iterative reconstruction. Other technique: STROKE PROTOCOL was implemented. COMPARISON: CT head wo con* [id number] 06/20/2021 2:43 PM RADIATION DOSE METRICS: Total DLP (mGy-cm): 972.9 FINDINGS: Brain: No acute intracranial hemorrhage. No mass effect or midline shift. No acute extraaxial fluid collection. Unremarkable white matter. Bilateral frontal lobe and parietal lobe atrophy. Cerebral ventricles: No ventriculomegaly. Paranasal sinuses: Partially visualized sinuses are unremarkable. No fluid levels. Mastoid air cells: Visualized mastoid air cells are well aerated. Bones: Unremarkable. No acute fracture. Soft tissues: Unremarkable. Vasculature: Atherosclerotic calcifications in the intracranial segments of bilateral internal carotid arteries in the left vertebral artery. CT/CT head thrombolytic [id number] IMPRESSION: 1. No acute intracranial findings. 2. Bilateral frontal lobe and parietal lobe atrophy. ASSESSMENT: ASPECTS ([place] Stroke Program Early CT Score) is 10.
[2024-03-22 05:44] LABS: Glucose Point of Care 111 mg/dL (70-110)
--- NOTE | 2024-03-22 05:46 | CTR_ITS ---
PROCEDURE INFORMATION: Exam: CTA Head With Contrast, Arteriography Exam date and time: 03/22/2024 5:50 AM Age: 83 years old Clinical indication: Stroke-like symptoms; Ataxia; Lt upper extremity and lt lower extremity weakness; Additional info: Left sided weakness, ataxia TECHNIQUE: Imaging protocol: Computed tomographic angiography of the head with contrast. Exam focused on the arteries. 3D rendering (Not supervised by radiologist): MIP and/or 3D reconstructed images were created by the technologist. Radiation optimization: All CT scans at this facility use at least one of these dose optimization techniques: automated exposure control; mA and/or kV adjustment per patient size (includes targeted exams where dose is matched to clinical indication); or iterative reconstruction. Contrast material: OMNI 350; Contrast volume: 100 ml; Contrast route: INTRAVENOUS (IV); COMPARISON: CT head thrombolytic [id number] 03/22/2024 5:46 AM RADIATION DOSE METRICS: Total DLP (mGy-cm): 445.02 FINDINGS: ANTERIOR CIRCULATION: Right internal carotid artery: Intracranial segment is patent with no significant stenosis. No aneurysm. Right middle cerebral artery: No occlusion or significant stenosis. No aneurysm. Right anterior cerebral artery: No occlusion or significant stenosis. No aneurysm. Anterior communicating artery: Anterior communicating artery is well developed. Left internal carotid artery: Intracranial segment is patent with no significant stenosis. No aneurysm. Left middle cerebral artery: No occlusion or significant stenosis. No aneurysm. 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 POSTERIOR CIRCULATION: Right vertebral artery: No occlusion or significant stenosis. No aneurysm. Left vertebral artery: No occlusion or significant stenosis. No aneurysm. 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 Right posterior cerebral artery: No occlusion or significant stenosis. No aneurysm. There is a origin of the right posterior cerebral artery, which is a normal variant. Left posterior cerebral artery: No occlusion or significant stenosis. No aneurysm. There is a origin of the left posterior cerebral artery, which is a normal variant. Brain: Intracranial venous sinuses are patent. There is no evidence of acute intracranial hemorrhage, subacute or chronic ischemic infarct, acute intra-axial or extra-axial fluid collection, mass effect, or midline shift. Intracranial venous sinuses are patent. Bilateral frontal and parietal lobe atrophy. Cerebral ventricles: No ventriculomegaly. Bones/joints: Unremarkable. No acute fracture. Soft tissues: Unremarkable. PROCEDURE INFORMATION: Exam: CTA Neck With Contrast Exam date and time: 03/22/2024 5:50 AM Age: 83 years old Clinical indication: Stroke-like symptoms; Ataxia; Lt upper extremity and lt lower extremity weakness; Additional info: Left sided weakness, ataxia TECHNIQUE: Imaging protocol: Computed tomographic angiography of the neck with contrast. Exam focused on the cervical segments of the vasculature. 3D rendering (Not supervised by radiologist): MIP and/or 3D reconstructed images were created by the technologist. Radiation optimization: All CT scans at this facility use at least one of these dose optimization techniques: automated exposure control; mA and/or kV adjustment per patient size (includes targeted exams where dose is matched to clinical indication); or iterative reconstruction. Contrast material: OMNI 350; Contrast volume: 100 ml; Contrast route: INTRAVENOUS (IV); COMPARISON: CT cervical spin wo con* [id number] 06/20/2021 2:56 PM RADIATION DOSE METRICS: Total DLP (mGy-cm): 445.02 FINDINGS: Right common carotid artery: A calcified atherosclerotic plaque in the right carotid bulb, resulting in severe stenosis. Right internal carotid artery: A calcified atherosclerotic plaque in the proximal segment of the right internal carotid artery, resulting in severe stenosis. Right external carotid artery: Severe stenosis at the origin of the right external carotid artery. Left common carotid artery: A calcified atherosclerotic plaque in the left carotid bulb, resulting in moderate stenosis. Left internal carotid artery: A calcified atherosclerotic plaque in the proximal segment of the left internal carotid artery, resulting in moderate stenosis. Left external carotid artery: No occlusion or stenosis of the origin. Right vertebral artery: No stenosis. No dissection or occlusion. Left vertebral artery: No stenosis. No dissection or occlusion. Right subclavian artery: Severe stenosis in the proximal and distal segments of the right subclavian artery. Soft tissues: Normal. No significant soft tissue swelling. Bones/joints: No acute fracture. CT/CT angio headneck* [id number] IMPRESSION: 1. 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 2. Intracranial venous sinuses are patent. 3. No acute intracranial findings. 4. Bilateral frontal and parietal lobe atrophy. IMPRESSION: 1. Severe stenosis in the proximal and distal segments of the right subclavian artery. 2. A calcified atherosclerotic plaque in the proximal segment of the right internal carotid artery, resulting in severe stenosis. 3. A calcified atherosclerotic plaque in the right carotid bulb, resulting in severe stenosis. 4. Severe stenosis at the origin of the right external carotid artery. 5. A calcified atherosclerotic plaque in the proximal segment of the left internal carotid artery, resulting in moderate stenosis. 6. A calcified atherosclerotic plaque in the left carotid bulb, resulting in moderate stenosis. REFERENCES: NASCET CRITERIA. The degree of stenosis in the cervical segment of the internal carotid artery is based on NASCET criteria. Normal is no stenosis. Mild is less than 50% stenosis. Moderate is 50-69% stenosis. Severe is 70% to 99% stenosis. Total occlusion is no detectable patent lumen.
[2024-03-22 05:54] LABS: Basophils # 0.1 10^3/uL (0.0-0.1); Basophils % 1.1 %; Eosinophils # 0.3 10^3/uL (0.0-0.8); Eosinophils % 3.9 %; Hematocrit 41.4 % (36-47); Lymphocytes # 2.2 10^3/uL (0.8-4.8); Lymphocytes % 32.6 %; Mean Corpuscular HGB Conc 31.9 g/dL (30-55); Mean Corpuscular Hemoglobin 30.4 pg (27-33); Mean Corpuscular Volume 95.4 fl (85-98); Monocytes # 0.6 10^3/uL (0.2-0.9); Neutrophils # 3.54 10^3/uL (1.8-7.7); Neutrophils % 53.2 %; Nucleated Red Blood Cells % 0 %; Platelet Count 271 10^3/cmm (157-399); Red Blood Count 4.34 10^6/uL (3.85-5.65); Red Cell Distribution Width 12.4 % (12.1-15.1); White Blood Count 6.65 10^3/uL (3.29-11.43)
[2024-03-22] MEDS: iohexol 350 mg/mL 500 mL Btl (per mL) IV (05:57)
[2024-03-22 06:07] LABS: INR 0.87 (0.8-1.2); Partial Thromboplastin Time 25.5 SECONDS (23.9-36.7)
[2024-03-22 06:11] LABS: Alanine Aminotransferase 26 U/L (0-33); Albumin Level 4.7 g/dL (3.5-5.2); Alkaline Phosphatase 89 U/L (35-105); Anion Gap 18.2 (5-19); Aspartate Amino Transferase 24 U/L (0-32); Blood Urea Nitrogen 24 mg/dL (8-23); Calcium 9.7 mg/dL (8.5-10.5); Carbon Dioxide 22 mmol/L (22-29); Chloride 103 mmol/L (98-107); Creatinine Clr Calc Pharmacy 34.7171; Globulin 2.5 g/dL (1.3-4.6); Glucose 121 mg/dL (65-115); Osmolality Calculated 293 mOsm/kg (285-295); Potassium 4.2 mmol/L (3.5-5.1); Sodium 139 mmol/L (136-145); Total Bilirubin 0.4 mg/dL (0.15-1.2); Total Protein 7.2 g/dL (6.6-8.7)
[2024-03-22] MEDS: tenecteplase 50mg Kit (STROKE) 22 MG IVP (06:29)
--- NOTE | 2024-03-22 07:12 | PC.NURSE ---
took over pt care from GARRET Bowden @ [phone]
[2024-03-22 07:20] LABS: Amphetamines Screen Urine Negative (Negative); Barbiturates Screen Urine Negative (Negative); Benzodiazepines Screen Urine Negative (Negative); Cocaine Screen Urine Negative (Negative); Opiate Screen Urine Negative (Negative); PCP Screen Urine Negative (Negative); THC Screen Urine Negative (Negative)
[2024-03-22 07:43] LABS: Bilirubin Urine Negative (Negative); Blood Urine Negative (Negative); Glucose Urine UA Negative (Normal); Ketones Urine Negative (Negative); Leukocyte Esterase Urine Negative (Negative); Nitrate Urine Negative (Negative); Protein Urine Trace (Negative); Specific Gravity, Urine 1.021 (1.005-1.030); Urine Appearance Clear (CLEAR); Urine Color Yellow (Yellow); Urobilinogen Urine 0.2 mg/dL (Negative)
[2024-03-22 07:46] LABS: Add Urine Microscopic? YES; Bacteria Urine None Seen /hpf; Hyaline Casts Urine 2.46 /lpf; RBC Urine 0-2 /hpf (0-2); Squamous Epithelial Cell Urine 0-5 /hpf (0-5); WBC Urine 0-5 /hpf (0-5)
--- NOTE | 2024-03-22 08:31 | XRR_ITS ---
PROCEDURE INFORMATION: Exam: XR Chest Exam date and time: 03/22/2024 8:35 AM Age: 83 years old Clinical indication: Shortness of breath; Additional info: CVA TECHNIQUE: Imaging protocol: Radiologic exam of the chest. Views: 1 view. COMPARISON: CR XR chest 1V portable [id number] 01/13/2021 3:33 AM FINDINGS: Lungs: Unremarkable. No consolidation. Pleural spaces: Unremarkable. No pleural effusion. No pneumothorax. Heart/Mediastinum: Unchanged moderate hiatal hernia. Normal heart size. Otherwise, unremarkable mediastinal contours. Bones/joints: Unremarkable. Soft tissues: New surgical material projecting over the heart. XR/XR chest 1V portable [id number] IMPRESSION: 1. No acute disease. 2. Additional details as above.
[2024-03-22 09:09] LABS: Thyroid Stimulating Hormone 7.33 uIU/mL (0.27-4.20)
--- NOTE | 2024-03-22 09:12 | P.HP_ITS ---
Providers/Chief Complaint 2 Admitting Physician: Td Rain MD Primary Care Provider: Clay Lynch Chief Complaint: HAND NUMBNESS History of Present Illness Libby Estevez is a 83 year old female who presented to the emergency department via ambulance with stroke symptoms. She reports she woke up between 330 to 4 AM this morning. She states she was normal. She was drinking a cup of coffee, when she noticed significant left arm deficits. She reports she had no significant strength, and could not order picker her cup of coffee. She eventually, got into contact with her son who noted slurred speech. In the emergency department she was noted to have left lower extremity paresis as well. She denies any visual difficulties, headache, history of stroke, recent illness, blood in stool. Symptoms of left arm have waxed and waned in the emergency department. She did receive TNKase after evaluation by neurology at [place]. She was found to have significant vascular disease right carotid, basilar artery, right subclavian. Review of Systems 2 General: Reports: 10 or more systems reviewed and unremarkable except in HPI and below Card: Denies: chest pain Resp: Denies: dyspnea GI: Denies: abdominal pain Medications/Allergies Home Medications Medication Instructions Recorded Confirmed Last Taken Type polyethylene glycol 3350 17 4 g PO DAILY 08/13/22 03/22/24 03/04/23 History gram/dose oral powder (Miralax) multivitamin 1 tab PO DAILY 01/21/23 03/22/24 03/04/23 History losartan 100 mg tablet 100 mg PO DAILY #90 tabs 05/08/23 03/22/24 Unknown Rx diltiazem HCl 180 mg 180 mg PO DAILY #90 caps 05/26/23 03/22/24 Unknown Rx capsule,extended release 24 hr, controlled (DILT-XR) orthotic insert #1 ea 08/27/23 03/22/24 Unknown Rx azelastine 137 mcg (0.1 %) nasal 1 spray intranasal BID #30 mL 10/01/23 03/22/24 Unknown Rx spray acetaminophen 500 mg capsule 500 mg PO BID Pain 11/05/23 03/22/24 Unknown History amlodipine 10 mg tablet 10 mg PO DAILY #90 tabs 01/06/24 03/22/24 Unknown Rx furosemide 20 mg tablet (Lasix) 20 mg PO DAILY #90 tabs 02/13/24 03/22/24 Unknown Rx celecoxib 100 mg capsule 100 mg PO DAILY 03/22/24 03/22/24 Unknown History Allergies Allergy/AdvReac Type Severity Reaction Status Date / Time No Known Allergies Allergy Verified 03/22/24 05:33 PFSH Acute 2 PFSH: Medical History (Updated 03/22/24 @ 09:19 by Td Rain MD) Chronic kidney disease Allergic rhinitis Plantar fasciitis, bilateral Essential hypertension with goal blood pressure less than 140/90 Murmur Generalized osteoarthritis Dyslipidemia Obesity Former smoker GERD (gastroesophageal reflux disease) Surgical History Status post trigger finger release Trigger finger, right ring finger Hx of section H/O knee surgery left knee Family History Father CAD (coronary artery disease) Denies family history of Cancer Social History Smoking and tobacco/nicotine status: former use of tobacco/nicotine Alcohol intake: never Substance/Drug Use: never Lives independently: Yes Housing: House Vitals/I&O/Wt Last Vital Signs Temp 98.6 F 03/22/24 05:30 Pulse 66 03/22/24 07:15 Resp 21 H 03/22/24 06:41 BP 166/66 03/22/24 07:15 Pulse Ox 96 03/22/24 07:15 O2 Del Method Room Air 03/22/24 06:11 03/21/24 03/22/24 03/22/24 22:59 06:59 14:59 Intake Total 0 / 0 Balance 0 / 0 Weight last 48 hrs Weight 86.183 kg Physical Exam 2 Narrative: General Exam is a white female, conversive HEENT: Atraumatic normocephalic. Oropharynx clear Neck is supple no lymphadenopathy thyromegaly Cardiovascular regular rate and rhythm with a 2/6 systolic murmur Lungs clear Abdomen is soft nontender exam is deferred Extremities no cyanosis clubbing. Lymphedema is noted bilaterally, 1+. Skin no rash Neuro: Currently she appears to have an NIHSS score of 7-8. Urinary Catheter Management: Carpenter: Cath Placed During This Visit: yes Urinary Catheter Date of Insertion: 03/22/24 Urinary Catheter Time of Insertion: 06:29 Data 03/22/24 05:45 03/22/24 05:45 Other Labs: INR is normal LFTs are normal Albumin calcium is normal TSH slightly elevated at 7.3 Urinalysis negative Urine drug screen negative I have ordered a chest x-ray Chest x-ray by my read shows no infiltrate. Significant calcification in the aortic system is noted. CTA head and neck demonstrated severe stenosis mid segment basilar artery, severe stenosis proximal and distal segments of right subclavian, plaque in the right internal carotid showing severe stenosis, as well as external carotid stenosis on the right. Moderate stenosis of the left internal carotid is noted. CT head which I also reviewed demonstrated no acute findings EKG which I reviewed demonstrates sinus rhythm, borderline left axis deviation, occasional premature atrial contraction. No significant ST-T wave changes are noted. A&P Assessment and plan (1) CVA (cerebral vascular accident): Patient presents with significant CVA symptoms She has significant right carotid, right subclavian, basilar artery stenosis. This is severe Gladys has seen the patient, and recommended TNKase which she is received. Will review their note, and determine when intervention should occur, if it should occur, on severe vascular findings. From talking to the emergency department this morning, they did not recommend intervention acutely. CT tomorrow Check echo Telemetry She was having more issues with her left upper extremity when I was in the room while she was sitting upright. I laid her back, and she was able to move the arm with less difficulty Hydration Keep blood pressure less than 180/105. Nicardipine if needed. Otherwise will allow some permissive blood pressure rise as I am worried about her waxing and waning symptoms with her degree of atherosclerotic disease TSH has been checked and normal Speech therapy, PT, OT consult Anticoagulation contraindicated currently. Start after 24 hours, along with aspirin, Plavix Initiate statin today (2) Carotid artery disease: See above (3) Hypertension: Try to keep blood pressure less than 180/105 over the next 24 hours Qualifiers: Hypertension type: primary hypertension Qualified Code(s): I10 - Essential (primary) hypertension (4) Chronic kidney disease: Avoid renal toxic medication Plan Multiple other medical problems as outlined in past medical history Full code currently SCDs for DVT prophylaxis, anticoagulation contraindicated as patient has received TNKase. Attestations 2 Medical Necessity Statement*: Will require greater than 2 midnight stay for evaluation and treatment of acute CVA Diagnoses CVA (cerebral vascular accident) I63.9 Carotid artery disease I77.9 Primary hypertension I10 Hypertension type: primary hypertension Chronic kidney disease N18.9 Time Spent (min) 64
[2024-03-22] MEDS: sodium chloride 0.9% 1,000 ML 100 ML IV ×2 (09:38→19:34)
--- NOTE | 2024-03-22 13:11 | USCV_ITS ---
Libby Estevez Age: 83 Gender: F : 1940 Exam Date: 03/22/2024 16:06 Ordering Phys: Td Rain MD Technologist: [facility]R [place] [facility] [place]: carotid stenosis Risk Factors: Previous Vascular Surgery: Right Brachial BP: / Left Brachial BP: / Right Left Velocity (cm/s) Spectral Plaque Velocity (cm/s) Spectral Plaque Syst/Diast Broadening Syst/Diast Broadening 82.80/ 12.80 Prox CCA 130.30/ 17.70 93.20/ 12.80 Mid CCA 134.90/ 19.10 67.60/ 8.90 Distal CCA 146.90/ 24.00 225.90/43.50 Prox ICA 179.40/ 7.70 139.30/30.70 Mid ICA 73.30 / 11.90 113.90/16.50 Distal ICA 42.40 / 11.10 276.50 ECA 180.50 3.30 ICA/CCA 1.20 Antegrade Vertebral Antegrade 38.00/ 23.50 cm/s 56.60/ 6.20 cm/s Tri Subclavian Tri 157.5 152.4 0 0 CONCLUSIONS Right ICA stenosis 70-99% at the lower end of the range. Moderate atheromatous plaque right carotid bulb/ICA. Left ICA stenosis 50-69%. Moderate atheromatous plaque left carotid bulb/ICA. Intimal thickening in the common carotid arteries and internal carotid arteries bilaterally. Normal antegrade Doppler flow noted in the right vertebral artery. Normal antegrade Doppler flow noted in the left vertebral artery. Ran Rain MD (Electronically Signed) Final Date: 23 March 2024 09:57 S
[2024-03-22] MEDS: simethicone 80 mg Chew PO (20:39)
[2024-03-22] MEDS: atorvastatin 40 mg Tablet 80 MG PO (20:39)
[2024-03-23] VITALS (14 sets, daily range): BP systolic 132–180; BP diastolic 61–100; PULSE 58–90; RESP 13–20; TEMP 36.8; O2SAT 94–96
[2024-03-23] MEDS: sodium chloride 0.9% 1,000 ML 100 ML IV (04:37)
[2024-03-23 04:39] LABS: Basophils # 0.1 10^3/uL (0.0-0.1); Basophils % 0.8 %; Eosinophils # 0.2 10^3/uL (0.0-0.8); Eosinophils % 2.3 %; Hematocrit 38.1 % (36-47); Lymphocytes # 1.7 10^3/uL (0.8-4.8); Lymphocytes % 22.5 %; Mean Corpuscular HGB Conc 31.8 g/dL (30-55); Mean Corpuscular Hemoglobin 30.5 pg (27-33); Mean Platelet Volume 12.9 fL (7.4-10.4); Monocytes # 0.8 10^3/uL (0.2-0.9); Monocytes % 10.6 %; Neutrophils % 63.5 %; Nucleated Red Blood Cells % 0 %; Platelet Count 257 10^3/cmm (157-399); Red Blood Count 3.97 10^6/uL (3.85-5.65); Red Cell Distribution Width 12.6 % (12.1-15.1); White Blood Count 7.55 10^3/uL (3.29-11.43)
[2024-03-23 04:56] LABS: Estmated Average Glucose 120; Hemoglobin A1C 5.8 % (4.0-6.0)
[2024-03-23 05:11] LABS: Alanine Aminotransferase 22 U/L (0-33); Alkaline Phosphatase 79 U/L (35-105); Anion Gap 15.1 (5-19); Aspartate Amino Transferase 21 U/L (0-32); Blood Urea Nitrogen 12 mg/dL (8-23); Calcium 9.2 mg/dL (8.5-10.5); Carbon Dioxide 24 mmol/L (22-29); Chloride 107 mmol/L (98-107); Creatinine Clr Calc Pharmacy 45.5792; Globulin 2.3 g/dL (1.3-4.6); Glucose 112 mg/dL (65-115); Osmolality Calculated 295 mOsm/kg (285-295); Potassium 4.1 mmol/L (3.5-5.1); Sodium 142 mmol/L (136-145); Total Bilirubin 0.5 mg/dL (0.15-1.2); Total Protein 6.3 g/dL (6.6-8.7)
[2024-03-23 05:12] LABS: Chol HDL Ratio 2.46 mg/dL (0.0-4.40); Cholesterol 167 mg/dL (0-200); HDL Cholesterol 68 mg/dL (60-100); LDL Cholesterol Calculated 82 mg/dL (50-129); LDL HDL Ratio 1.21 RATIO (0.00-3.22); Triglycerides 86 mg/dL (0-150)
--- NOTE | 2024-03-23 06:00 | USCV_ITS ---
Libby Estevez Age: 83 Gender: F : 1940 Exam Date: 03/23/2024 02:53 Ordering Phys: Td Rain MD Technologist: DONNIE Exam Location: [facility] [place] Indication: CVA BP: 165 / 77 HR: 66 Rhythm: Sinus Technical Quality: Adequate MEASUREMENTS (Male / Female) Normal Values 2D ECHO LV Diastolic Diameter PLAX 3.7 cm 4.2 - 5.9 / 3.9 - 5.3 cm IVS Diastolic Thickness 1.7 cm 0.6 - 1.0 / 0.6 - 0.9 cm IVS Systolic Thickness 1.9 cm LVPW Diastolic Thickness 1.5 cm 0.6 - 1.0 / 0.6 - 0.9 cm LVPW Systolic Thickness 1.9 cm LVOT Diameter 1.6 cm LV Ejection Fraction 2D Teich 71.7 % LV Ejection Fraction MOD 4C 66.7 % LV Ejection Fraction MOD 2C 69.8 % LV Ejection Fraction 2C AL 72.0 % LA Diameter 2.7 cm Aorta at Sinotubular Diameter 1.8 cm M-MODE LA Ao Ratio MM 1.4 AV Cusp Separation MM 1.5 cm DOPPLER AV Peak Velocity 171.0 cm/s LVOT Peak Velocity 156.0 cm/s AV Area Cont Eq vti 2.0 cm squared AV Area Cont Eq pk 1.9 cm squared MV Peak Velocity 141.0 cm/s MV Area PHT 5.2 cm squared Mitral E to A Ratio 0.8 TR Peak Velocity 303.0 cm/s TR Peak Gradient 36.7 mmHg TV Peak E Velocity 64.0 cm/s PV Peak Velocity 120.0 cm/s FINDINGS Left Ventricle Left ventricle is normal in size. LV systolic function is normal with EF 65 to 70%. No regional wall motion abnormalities are seen. Grade 1 diastolic dysfunction Right Ventricle Normal in size and function Right Atrium Normal in size Left Atrium Dilated Mitral Valve Mild mitral annular calcification. Mild mitral regurgitaiton Aortic Valve Aortic valve is thickened and calcified. No significant stenosis or regurgitation. Tricuspid Valve Mild tricuspid regurgitation. RVSP is 35 to 40 mmHg. This is consistent with mild pulmonary hypertension. Pulmonic Valve Not well visualized Pericardium Normal Aorta Normal in size IVC Appears to be normal CONCLUSIONS LV systolic function is normal with EF of 65-70% Left atrial dilation Mild mitral regurgitation Mild tricuspid regurgitation Mild pulmonary hypertension Kyrie Pitt MD (Electronically Signed) Final Date: 23 March 2024 10:50 S
--- NOTE | 2024-03-23 09:00 | CTR_ITS ---
PROCEDURE INFORMATION: Exam: CT Head Without Contrast Exam date and time: 03/23/2024 8:25 AM Age: 83 years old Clinical indication: Altered mental status/memory loss; Patient HX: 24 hour post tka. Stroke like symptoms yesterday. Left upper and lower ext weakness/numbness and ataxia; Additional info: S/P tnkase TECHNIQUE: Imaging protocol: Computed tomography of the head without contrast. Radiation optimization: All CT scans at this facility use at least one of these dose optimization techniques: automated exposure control; mA and/or kV adjustment per patient size (includes targeted exams where dose is matched to clinical indication); or iterative reconstruction. COMPARISON: CT angio headneck* [id number] 03/22/2024 5:50 AM RADIATION DOSE METRICS: Total DLP (mGy-cm): 1233.71 FINDINGS: Brain: Mild cerebral atrophy. Mild areas of low-attenuation in the white matter most likely representing small vessel ischemic change. No evidence of mass effect, intracranial hemorrhage or extra-axial collection. No acute infarct. Cerebral ventricles: Unremarkable for age. Paranasal sinuses: No significant pathology. Mastoid air cells: No significant pathology. Bones: No significant pathology. Soft tissues: No significant pathology. CT/CT head wo con* [id number] IMPRESSION: No acute pathology or significant interval change.
--- NOTE | 2024-03-23 09:07 | MR_ITS ---
WS: [id number] MRI HEAD WITHOUT CONTRAST TECHNIQUE: Sagittal T1, T2 axial, T2 axial FLAIR, axial and coronal T1 images, axial susceptibility w eighted imaging, axial diffusion weighted images, and coronal T2 images were obtained. CLINICAL INFORMATION: s/p CVA, TNKASE COMPARISON: CT 03/23/2024 FINDINGS: Multiple small patchy foci of restricted diffusion involving the RIGHT parietal lobe extending into t he RIGHT occipital and temporal lobes compatible with acute ischemia. Additional small foci of restri cted diffusion in the LEFT posterior frontal lobe and LEFT parasagittal parietal lobe. Findings suspi cious for embolic etiology. Mild associated edema associated with the larger punctate foci. No mass e ffect or midline shift. No hemosiderin on the susceptibly weighted images. Moderate small vessel changes. Moderate parenchymal volume loss worse in the parietal lobes. Tiny chr onic appearing infarct RIGHT basal ganglia. 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 Normal posterior fossa. Normal vascular flow voids at the skull base. Paranasal sinuses and mastoid air cells are well aerated. Normal optic chiasm and pituitary infundibu lum. Mild symmetric atrophy temporal lobes and hippocampal formations. MR/MR head wo con* [id number] IMPRESSION: 1. Innumerable punctate foci of restricted diffusion involving the RIGHT parie blu occipital and temporal lobes. A few additional punctate foci involving the LEFT posterior frontal and parasagittal parietal lobes. Findings suspicious for embolic etiology involving multiple vascular territories. Large majority of th e infarcts are on the RIGHT 2. No significant mass effect or midline shift. 3. No hemosiderin. 4. 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
--- NOTE | 2024-03-23 09:48 | P.PN_ITS ---
Subjective 2 Subjective: Libby reports she feels okay. No headache. States she has says a little bit of residual weakness in her hand, but much better than yesterday. No shortness of breath or chest discomfort. Medications: Reviewed: Yes Vitals/I&O/Wt Last Vital Signs Temp 97.9 F 03/22/24 20:38 Pulse 60 03/23/24 05:36 Resp 14 03/23/24 03:00 BP 152/94 03/23/24 03:00 Pulse Ox 94 03/23/24 08:51 O2 Del Method Room Air 03/23/24 08:51 03/22/24 03/23/24 03/23/24 22:59 06:59 14:59 Intake Total 1233.333 / 7658.015 7140 / 2618.333 Output Total 3400 / 3460 1350 / 4810 Balance -2166.667 / -2226.667 35 / -2191.667 Weight last 48 hrs Weight 87.815 kg Weight 89.5 kg Weight 86.183 kg Physical Exam 2 Narrative: General Exam is a white female, conversive Neck is supple no lymphadenopathy thyromegaly Cardiovascular regular rate and rhythm with a 2/6 systolic murmur Lungs clear Abdomen is soft nontender Extremities no cyanosis clubbing. Lymphedema is noted bilaterally, 1+. Neuro: Slight diminished strength left upper extremity Urinary Catheter Management: Carpenter: Cath Placed During This Visit: yes Reason for Continuing Indwelling Catheter: Accurate Measurement of Urinary Output in Critically Ill Patients Urinary Catheter Date of Insertion: 03/22/24 Urinary Catheter Time of Insertion: 06:29 Data 03/23/24 03:26 03/23/24 03:26 A&P Assessment and plan (1) CVA (cerebral vascular accident): Patient presents with significant CVA symptoms She has significant right carotid, right subclavian, basilar artery stenosis. This is severe Gladys has seen the patient, and recommended TNKase which she is received. Will review their note, and determine when intervention should occur, if it should occur, on severe vascular findings. From talking to the emergency department this morning, they did not recommend intervention acutely. On reviewing note they recommended MRI, carotid ultrasound which I am awaiting the results. CT repeat pending Echo largely normal, normal EF and mild aortic stenosis Telemetry Neurologic symptoms improved Discontinue IV fluids May resume her amlodipine at this time, 5 mg. Hold off on her diltiazem. Hold off on losartan. TSH has been checked and normal Speech therapy, PT, OT consult Anticoagulation contraindicated currently. If CT negative for bleed, initiate Plavix and aspirin Continue statin May transfer to medical surgical floor with telemetry (2) Carotid artery disease: See above (3) Hypertension: Reinitiating blood pressure medication cautiously Qualifiers: Hypertension type: primary hypertension Qualified Code(s): I10 - Essential (primary) hypertension (4) Chronic kidney disease: Avoid renal toxic medication Plan Multiple other medical problems as outlined in past medical history Full code currently SCDs for DVT prophylaxis, anticoagulation contraindicated as patient has received TNKase. Attestations 2 Medical Necessity Statement*: Needs continued hospital stay for close monitoring following CVA, which required TNKase Diagnoses CVA (cerebral vascular accident) I63.9 Carotid artery disease I77.9 Primary hypertension I10 Hypertension type: primary hypertension Chronic kidney disease N18.9 Time Spent (min) 23
[2024-03-23] MEDS: amlodipine 5 mg Tablet PO (10:20)
[2024-03-23] MEDS: aspirin 81 mg EC Tablet PO (14:28)
[2024-03-23] MEDS: simethicone 80 mg Chew PO (16:04)
[2024-03-23] MEDS: apixaban 5 mg Tablet PO (21:13)
[2024-03-23] MEDS: atorvastatin 40 mg Tablet 80 MG PO (21:13)
--- NOTE | 2024-03-24 02:27 | PC.NURSE ---
Report called to Velma on [facility]sur, patient transferred at 0230
[2024-03-24 02:39] VITALS: BP 148/99; PULSE 63; RESP 18; TEMP 36.6; O2SAT 97
[2024-03-24 04:45] VITALS: BP 143/74; PULSE 72; RESP 18; TEMP 36.7; O2SAT 95
[2024-03-24 06:13] LABS: Basophils # 0.1 10^3/uL (0.0-0.1); Basophils % 0.8 %; Eosinophils # 0.3 10^3/uL (0.0-0.8); Eosinophils % 3.9 %; Hematocrit 37.6 % (36-47); Lymphocytes # 1.5 10^3/uL (0.8-4.8); Lymphocytes % 20.9 %; Mean Corpuscular HGB Conc 31.6 g/dL (30-55); Mean Corpuscular Volume 97.9 fl (85-98); Mean Platelet Volume 11.9 fL (7.4-10.4); Monocytes # 0.8 10^3/uL (0.2-0.9); Monocytes % 10.6 %; Neutrophils % 63.5 %; Nucleated Red Blood Cells % 0 %; Platelet Count 234 10^3/cmm (157-399); Red Blood Count 3.84 10^6/uL (3.85-5.65); Red Cell Distribution Width 12.5 % (12.1-15.1); White Blood Count 7.24 10^3/uL (3.29-11.43)
[2024-03-24 06:34] LABS: Anion Gap 13.2 (5-19); Blood Urea Nitrogen 17 mg/dL (8-23); Calcium 9.2 mg/dL (8.5-10.5); Carbon Dioxide 24 mmol/L (22-29); Chloride 105 mmol/L (98-107); Creatinine Clr Calc Pharmacy 41.5148; Glucose 107 mg/dL (65-115); Osmolality Calculated 288 mOsm/kg (285-295); Potassium 4.2 mmol/L (3.5-5.1); Sodium 138 mmol/L (136-145)
[2024-03-24 07:49] VITALS: BP 145/74
[2024-03-24] MEDS: aspirin 81 mg EC Tablet PO (07:49)
[2024-03-24] MEDS: losartan 50 mg Tablet 25 MG PO (07:49)
[2024-03-24] MEDS: amlodipine 5 mg Tablet PO (07:49)
[2024-03-24] MEDS: apixaban 5 mg Tablet PO (07:50)
[2024-03-24 07:53] VITALS: BP 144/75; PULSE 70; RESP 18; TEMP 36.8; O2SAT 98
--- NOTE | 2024-03-24 11:18 | P.HP_ITS ---
Providers/Chief Complaint 2 Admitting Physician: Td Rain MD Primary Care Provider: Clay Lynch Chief Complaint: HAND NUMBNESS History of Present Illness Libby Estevez is a 83 year old female Medications/Allergies Home Medications Medication Instructions Recorded Confirmed Last Taken Type polyethylene glycol 3350 17 4 g PO DAILY 08/13/22 03/22/24 03/04/23 History gram/dose oral powder (Miralax) multivitamin 1 tab PO DAILY 01/21/23 03/22/24 03/04/23 History losartan 100 mg tablet 100 mg PO DAILY #90 tabs 05/08/23 03/22/24 Unknown Rx diltiazem HCl 180 mg 180 mg PO DAILY #90 caps 05/26/23 03/22/24 Unknown Rx capsule,extended release 24 hr, controlled (DILT-XR) orthotic insert #1 ea 08/27/23 03/22/24 Unknown Rx azelastine 137 mcg (0.1 %) nasal 1 spray intranasal BID #30 mL 10/01/23 03/22/24 Unknown Rx spray acetaminophen 500 mg capsule 500 mg PO BID Pain 11/05/23 03/22/24 Unknown History amlodipine 10 mg tablet 10 mg PO DAILY #90 tabs 01/06/24 03/22/24 Unknown Rx furosemide 20 mg tablet (Lasix) 20 mg PO DAILY #90 tabs 02/13/24 03/22/24 Unknown Rx celecoxib 100 mg capsule 100 mg PO DAILY 03/22/24 03/22/24 Unknown History Allergies Allergy/AdvReac Type Severity Reaction Status Date / Time No Known Allergies Allergy Verified 03/22/24 05:33 PFSH Acute 2 PFSH: Medical History (Updated 03/23/24 @ 21:26 by Cruzito Lemos DO) Chronic kidney disease Allergic rhinitis Plantar fasciitis, bilateral Essential hypertension with goal blood pressure less than 140/90 Murmur Generalized osteoarthritis Dyslipidemia Obesity Former smoker GERD (gastroesophageal reflux disease) Surgical History Status post trigger finger release Trigger finger, right ring finger Hx of section H/O knee surgery left knee Family History Father CAD (coronary artery disease) Denies family history of Cancer Social History Smoking and tobacco/nicotine status: former use of tobacco/nicotine Alcohol intake: never Substance/Drug Use: never Lives independently: Yes Housing: House Vitals/I&O/Wt Last Vital Signs Temp 98.3 F 03/24/24 07:53 Pulse 70 03/24/24 07:53 Resp 18 03/24/24 07:53 BP 144/75 03/24/24 07:53 Pulse Ox 98 03/24/24 07:53 O2 Del Method Room Air 03/24/24 07:53 03/23/24 03/24/24 03/24/24 22:59 06:59 14:59 Intake Total 240 / 1720 240 / 240 Output Total 200 / 1750 725 / 2475 Balance 40 / -30 -725 / -755 240 / 240 Weight last 48 hrs Weight 88.133 kg Weight 87.815 kg Physical Exam 2 Urinary Catheter Management: Carpenter: Cath Placed During This Visit: yes, but has since been removed by the nurse Reason for Continuing Indwelling Catheter: Acute Urinary Retention or Obstruction Urinary Catheter Date of Insertion: 03/22/24 Urinary Catheter Time of Insertion: 06:29 Date Urinary Catheter Removed: 03/24/24 Time Urinary Catheter Discontinued: 08:07 Data 03/24/24 05:56 03/24/24 05:56 Coding Level of Care Code Acute Code for Nikhilg Deon
[2024-03-24 11:35] VITALS: BP 125/75; PULSE 72; RESP 16; TEMP 36.4; O2SAT 97
--- NOTE | 2024-03-24 11:54 | PM.DCS ---
Discharge Providers Date of Admission: 03/22/24 07:46 Date of Discharge: March 24, 2024 Attending Provider at Admission: Td Rain MD Attending Provider at Discharge: Td Rain MD Primary Care Provider: Clay Lynch Diagnoses at Discharge Discharge Diagnosis (1) CVA (cerebral vascular accident): Status: Acute (2) Carotid artery disease: Status: Acute (3) Hypertension: Status: Acute Qualifiers: Hypertension type: primary hypertension Qualified Code(s): I10 - Essential (primary) hypertension (4) Chronic kidney disease: Status: Chronic Reason for Visit Reason for Visit: HAND NUMBNESS Hospital Course Hospital Course Patient presented with left-sided weakness. Stroke alert was called. Neurology evaluated from [place], and she was deemed to be a candidate for TNKase. She received the TNKase, and received a CTA of her head and neck. CTA demonstrated significant vascular disease of the right internal carotid, basilar artery and right subclavian. During the patient's hospital course she was hydrated. CT of the following day demonstrated no bleed. She was initiated on aspirin, and after shared decision making with the family, after review of her MRI Eliquis was started. This was secondary to multiple teeny stroke seen on the right side, and some on the left side in the parietal occipital areas. There was a significant concern for a shower effect. Blood pressure medications were gradually readded. The day of discharge she reported no dizziness. She had had no arrhythmias. Blood pressure was 125/75 on lower doses of losartan, amlodipine. She had mild residual decreased strength in her left upper extremity, more hand clumsiness than other symptoms. Therapies had seen her and believed at this point she does not need any home regimen. She will follow-up with neurology in 2 weeks, to discuss her significant vascular disease. I visited with them during her hospital course for guidance as well. She will get an event monitor on discharge. She was able to ask questions, as well as her family and they agreed with the plan. Risks and benefits of anticoagulant were discussed and she is to monitor for bleeding. Physical Exam Narrative: General Exam no distress Neck is supple Cardiovascular regular rate and rhythm Lungs clear Abdomen soft EXTR extremities no cyanosis clubbing or edema Neuro: Mild left hand clumsiness, otherwise normal Urinary Catheter Management: Carpenter: Cath Placed During This Visit: yes, but has since been removed by the nurse Reason for Continuing Indwelling Catheter: Acute Urinary Retention or Obstruction Urinary Catheter Date of Insertion: 03/22/24 Urinary Catheter Time of Insertion: 06:29 Date Urinary Catheter Removed: 03/24/24 Time Urinary Catheter Discontinued: 08:07 Discharge Data Studies Completed and Pending Completed Studies During Hospitalization Category Date Time Status CT head thrombolytic 46096 Stat Cat Scan 03/22/24 05:[address] head wo con* [id number] Routine Cat Scan 03/23/24 09:00 Completed CTA head neck [CT angio headneck* [id number]] Stat Cat Scan 03/22/24 05:46 Completed XR chest 1V portable [id number] Routine Exams 03/22/24 08:31 Completed MR head wo con* [id number] Routine MRI 03/23/24 09:07 Completed CV carotid duplex BI* [id number] Routine Ultrasound 03/22/24 13:11 Completed CV. echo complete* [id number] Routine Ultrasound 03/23/24 06:00 Completed Radiology Impressions Head/Neck CTA 03/22/24 05:46 IMPRESSION: 1. 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 2. Intracranial venous sinuses are patent. 3. No acute intracranial findings. 4. Bilateral frontal and parietal lobe atrophy. IMPRESSION: 1. Severe stenosis in the proximal and distal segments of the right subclavian artery. 2. A calcified atherosclerotic plaque in the proximal segment of the right internal carotid artery, resulting in severe stenosis. 3. A calcified atherosclerotic plaque in the right carotid bulb, resulting in severe stenosis. 4. Severe stenosis at the origin of the right external carotid artery. 5. A calcified atherosclerotic plaque in the proximal segment of the left internal carotid artery, resulting in moderate stenosis. 6. A calcified atherosclerotic plaque in the left carotid bulb, resulting in moderate stenosis. REFERENCES: NASCET CRITERIA. The degree of stenosis in the cervical segment of the internal carotid artery is based on NASCET criteria. Normal is no stenosis. Mild is less than 50% stenosis. Moderate is 50-69% stenosis. Severe is 70% to 99% stenosis. Total occlusion is no detectable patent lumen. ADDENDUM: 03/22/24 0639 THIS REPORT CONTAINS FINDINGS THAT MAY BE CRITICAL TO PATIENT CARE. The findings and recommendations were verbally communicated via telephone conference with JUANITA Finn by Dr. Ward on 03/22/2024 at 6:36 AM PROJECT ASSOCIATE. The findings were acknowledged and understood. Chest X-Ray 03/22/24 08:31 IMPRESSION: 1. No acute disease. 2. Additional details as above. Head CT 03/23/24 09:00 IMPRESSION: No acute pathology or significant interval change. Head MRI 03/23/24 09:07 IMPRESSION: 1. Innumerable punctate foci of restricted diffusion involving the RIGHT parietal occipital and temporal lobes. A few additional punctate foci involving the LEFT posterior frontal and parasagittal parietal lobes. Findings suspicious for embolic etiology involving multiple vascular territories. Large majority of the infarcts are on the RIGHT 2. No significant mass effect or midline shift. 3. No hemosiderin. 4. 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 Laboratory Results WBC 7.24 10^3/uL (3.29-11.43) 03/24/24 05:56 RBC 3.84 10^6/uL (3.85-5.65) L 03/24/24 05:56 Hgb 11.90 g/dL (11.27-16.99) 03/24/24 05:56 Hct 37.6 % (36-47) 03/24/24 05:56 MCV 97.9 fl (85-98) 03/24/24 05:56 MCH 31.0 pg (27-33) 03/24/24 05:56 MCHC 31.6 g/dL (30-55) 03/24/24 05:56 RDW 12.5 % (12.1-15.1) 03/24/24 05:56 Plt Count 234 10^3/cmm (157-399) 03/24/24 05:56 MPV 11.9 fL (7.4-10.4) H 03/24/24 05:56 Neut % (Auto) 63.5 % 03/24/24 05:56 Lymph % (Auto) 20.9 % 03/24/24 05:56 [place] % (Auto) 10.6 % 03/24/24 05:56 Eos % (Auto) 3.9 % 03/24/24 05:56 Baso % (Auto) 0.8 % 03/24/24 05:56 Neut # (Auto) 4.60 10^3/uL (1.8-7.7) 03/24/24 05:56 Lymph # (Auto) 1.5 10^3/uL (0.8-4.8) 03/24/24 05:56 [place] # (Auto) 0.8 10^3/uL (0.2-0.9) 03/24/24 05:56 Eos # (Auto) 0.3 10^3/uL (0.0-0.8) 03/24/24 05:56 Baso # (Auto) 0.1 10^3/uL (0.0-0.1) 03/24/24 05:56 Nucleated RBC % (auto) 0 % 03/24/24 05:56 Nucleated RBCs # 0.0 /100WBC 03/24/24 05:56 PT 12.10 SECONDS (12.1-14.9) 03/22/24 05:45 INR 0.87 (0.8-1.2) 03/22/24 05:45 APTT 25.5 SECONDS (23.9-36.7) 03/22/24 05:45 Sodium 138 mmol/L (136-145) 03/24/24 05:56 Potassium 4.2 mmol/L (3.5-5.1) 03/24/24 05:56 Chloride 105 mmol/L (98-107) 03/24/24 05:56 Carbon Dioxide 24 mmol/L (22-29) 03/24/24 05:56 Anion Gap 13.2 (5-19) 03/24/24 05:56 BUN 17 mg/dL (8-23) 03/24/24 05:56 Creatinine 1.1 mg/dL (0.5-0.9) H 03/24/24 05:56 GFR Calculation Not Reportable 03/24/24 05:56 Glucose 107 mg/dL (65-115) 03/24/24 05:56 POC Glucose 111 mg/dL (70-110) H 03/22/24 05:41 Estimat Average Glucose 120 03/23/24 03:26 Hemoglobin A1c 5.8 % (4.0-6.0) 03/23/24 03:26 Calculated Osmolality 288 mOsm/kg (285-295) 03/24/24 05:56 Calcium 9.2 mg/dL (8.5-10.5) 03/24/24 05:56 Total Bilirubin 0.5 mg/dL (0.15-1.2) 03/23/24 03:26 AST 21 U/L (0-32) 03/23/24 03:26 ALT 22 U/L (0-33) 03/23/24 03:26 Alkaline Phosphatase 79 U/L (35-105) 03/23/24 03:26 Total Protein 6.3 g/dL (6.6-8.7) L 03/23/24 03:26 Albumin 4.0 g/dL (3.5-5.2) 03/23/24 03:26 Globulin 2.3 g/dL (1.3-4.6) 03/23/24 03:26 Triglycerides 86 mg/dL (0-150) 03/23/24 03:26 Cholesterol 167 mg/dL (0-200) 03/23/24 03:26 LDL Cholesterol, Calc 82 mg/dL (50-129) 03/23/24 03:26 HDL Cholesterol 68 mg/dL (60-100) 03/23/24 03:26 LDL/HDL Ratio 1.21 RATIO (0.00-3.22) 03/23/24 03:26 Cholesterol/HDL Ratio 2.46 mg/dL (0.0-4.40) 03/23/24 03:26 TSH 7.33 uIU/mL (0.27-4.20) H 03/22/24 05:45 Urine Color Yellow (Yellow) 03/22/24 06:36 Urine Appearance Clear (CLEAR) 03/22/24 06:36 Urine pH 7.0 (5-7) 03/22/24 06:36 Ur Specific [place] 1.021 (1.005-1.030) 03/22/24 06:36 Urine Protein Trace (Negative) A 03/22/24 06:36 Urine Glucose (UA) Negative (Normal) 03/22/24 06:36 Urine Ketones Negative (Negative) 03/22/24 06:36 Urine Blood Negative (Negative) 03/22/24 06:36 Urine Nitrate Negative (Negative) 03/22/24 06:36 Urine Bilirubin Negative (Negative) 03/22/24 06:36 Urine Urobilinogen 0.2 mg/dL (Negative) 03/22/24 06:36 Ur Leukocyte Esterase Negative (Negative) 03/22/24 06:36 Urine RBC 0-2 /hpf (0-2) 03/22/24 06:36 Urine WBC 0-5 /hpf (0-5) 03/22/24 06:36 Ur Squamous Epith Cells 0-5 /hpf (0-5) 03/22/24 06:36 Amorphous Sediment Not Reportable 03/22/24 06:36 Urine Bacteria None seen /hpf (NONE) 03/22/24 06:36 Hyaline Casts 2.46 /lpf 03/22/24 06:36 Urine Opiates Screen Negative ng/mL (Negative) 03/22/24 06:36 Ur Barbiturates Screen Negative ng/mL (Negative) 03/22/24 06:36 Ur Phencyclidine Scrn Negative ng/mL (Negative) 03/22/24 06:36 Ur Amphetamines Screen Negative ng/mL (Negative) 03/22/24 06:36 U Benzodiazepines Scrn Negative ng/mL (Negative) 03/22/24 06:36 Urine Cocaine Screen Negative ng/mL (Negative) 03/22/24 06:36 U Marijuana (THC) Screen Negative ng/mL (Negative) 03/22/24 06:36 Vitals Last Vital Signs Temp 97.6 F 03/24/24 11:35 Pulse 72 03/24/24 11:35 Resp 16 03/24/24 11:35 BP 125/75 03/24/24 11:35 Pulse Ox 97 03/24/24 11:35 O2 Del Method Room Air 03/24/24 11:35 Discharge Plan Discharge Patient Disposition: Home Condition: Stable Prescriptions: New amlodipine 5 mg Tablet 5 mg PO DAILY Qty: 30 0RF aspirin 81 mg Tablet,Delayed Release (Dr/Ec) 81 mg PO DAILY Qty: 30 0RF losartan 50 mg Tablet 25 mg PO DAILY Qty: 15 0RF atorvastatin 40 mg Tablet 80 mg PO BEDTIME Qty: 60 0RF Eliquis 5 mg Tablet 5 mg PO BID@0900,2100 Qty: 60 0RF Continued acetaminophen 500 mg capsule 500 mg PO BID polyethylene glycol 3350 [Miralax] 17 gram/dose powder 4 g PO DAILY multivitamin Tablet 1 tab PO DAILY azelastine 137 mcg (0.1 %) aerosol,spray 1 spray intranasal BID Qty: 30 6RF Rx Instructions: administer into each nostril (DME) orthotic insert See Rx Instructions .Route .MEDSUPPLY Qty: 1 0RF Rx Instructions: As directed furosemide [Lasix] 20 mg tablet 20 mg PO DAILY Qty: 90 3RF Discontinued losartan 100 mg tablet 100 mg PO DAILY Qty: 90 3RF diltiazem HCl [DILT-XR] 180 mg capsule,ext.rel 24h degradable 180 mg PO DAILY Qty: 90 3RF amlodipine 10 mg tablet 10 mg PO DAILY Qty: 90 3RF celecoxib 100 mg capsule 100 mg PO DAILY Discharge Orders: Discharge Order (Routine); Ordered 03/24/24 Ordered By: Td Rain Other Ambulatory Orders: MCT/Event Monitor 21 Days (Routine) Timeframe: 1 Day Facility: [facility] - Location: Radiology Ordered By: Td Rain Referrals: Jie Guerra MD [Physician] - 04/22/24 3:00 pm Greg Emmanuel MD [Physician] - 04/01/24 10:00 am Discharge Diet: Cardiac Discharge Activity: Increase activity as tolerated Patient Instructions: Ischemic Stroke (DC), Opioid Safety, Stroke Stoplight Activity Restrictions/Additional Instructions: Take all medicine as prescribed Follow-up with neurology in 2 weeks Event monitor on discharge Return for any concerns Monitor for any bleeding. Discharge Attestations Time Spent in Discharge Care*: greater than 30 min Quality Metrics Clinical Quality Measures [ Cerebrovascular Accident { Contraindication to Antithrombotic: None; antithrombotic prescribed; Contraindication to Anticoagulation: None; anticoagulation prescribed; Contraindication to Statin: None; Statin prescribed; Reason stroke education not provided: Stroke education provided to patient;}] Coding Level of Care Code 59963 Total time (in minutes) for Discharge: 39 Diagnoses CVA (cerebral vascular accident) I63.9 Carotid artery disease I77.9 Primary hypertension I10 Hypertension type: primary hypertension Chronic kidney disease N18.9
--- NOTE | 2024-03-24 12:14 | PC.NURSE ---
Discharge instructions provided to pt and her son. Order provided for event monitor. Pt advised [facility] to call with appt date and time. NO questions or concerns voiced at this time. Pt to private vehicle via wheelchair with all belongings.
[2024-03-24 12:15] VITALS: BP 125/75; PULSE 72; RESP 16; TEMP 36.4; O2SAT 97
--- NOTE | 2024-03-24 12:15 | PC.SOCIAL ---
IMM Updated. Updated pt on IMM. No questions voiced. Provided pt a copy. Initialed, dated, & timed a copy & placed in chart.
== END 2024-03-24 12:17 | disposition home or self-care (01) | DRG 62 ==
LOC: ER 05:52 → ICU 07:46 → MEDSURG 03-24 02:29
PROVIDERS: Admitting Provider Internal Medicine; Emergency Provider Emergency Medicine; PCP Clinical Nurse Specialist Adult Health; Visit Provider Internal Medicine
DX: I63.9 Cerebral infarction, unspecified (principal); G81.94 Hemiplegia, unspecified affecting left nondominant side; I25.10 Atherosclerotic heart disease of native coronary artery without angina pectoris; I12.9 Hypertensive chronic kidney disease with stage 1 through stage 4 chronic kidney disease, or unspecified chronic kidney disease; E11.22 Type 2 diabetes mellitus with diabetic chronic kidney disease; N18.9 Chronic kidney disease, unspecified; I1A.0 Resistant hypertension; R29.708 NIHSS score 8; I65.21 Occlusion and stenosis of right carotid artery; I65.1 Occlusion and stenosis of basilar artery; I70.8 Atherosclerosis of other arteries; Z87.891 Personal history of nicotine dependence
CPT/HCPCS: 36415; 36416; 51702; 70450; 70496; 70498; 70551; 71045; 80048; 80053; 80061; 80306; 81001; 82962; 83036; 84443; 85025; 85610; 85730; 92507; 92523; 92610; 93005; 93306; 93880; 96374; 96376; 97110; 97161; 97165; 99285; J3101; J7030

== ENCOUNTER → 2024-03-29 07:45 | Outpatient (BNVA) | payer MEDICARE, SELFPAY | PROVIDERS: PCP Clinical Nurse Specialist Adult Health; Visit Provider Specialist | DX: I63.89 Other cerebral infarction (principal); I77.1 Stricture of artery; I65.1 Occlusion and stenosis of basilar artery; I27.20 Pulmonary hypertension, unspecified; G47.10 Hypersomnia, unspecified; I65.23 Occlusion and stenosis of bilateral carotid arteries; I77.9 Disorder of arteries and arterioles, unspecified | CPT/HCPCS: 99204; 99205 ==

== ENCOUNTER 2024-04-12 12:19 | Outpatient (CLI) | payer MEDICARE, SELFPAY ==
--- NOTE | 2024-04-12 12:40 | MM_ITS ---
WS: [id number] BILATERAL 3D TOMOSYNTHESIS DIGITAL SCREENING MAMMOGRAPHY WITH CAD CLINICAL INFORMATION: Screening mammogram HISTORY: Screening mammogram. No current complaints. COMPARISON: Baseline TECHNIQUE: Bilateral CC and MLO views. FINDINGS: The breasts are composed of heterogeneous fibroglandular density tissue, which can limit the detectio n of small underlying mass lesions. No suspicious mass, asymmetry, calcifications, or architectural d istortion. No evidence of malignancy. Dense anterior breast tissue. Vascular calcifications. Incident al punctate calcifications. MM/MM [facility] tomosynthesis [id number] IMPRESSION: DENSITY: The breasts are heterogeneously dense, which may obscure small masses. BI-RADS: 2 - Benign FOLLOW UP: 1 Year Follow-up Recommend return to annual screening mammography.
== END 2024-04-12 12:20 | disposition home or self-care (01) ==
LOC: RAD 12:20
PROVIDERS: PCP Family Medicine; Visit Provider Family Medicine
DX: Z12.31 Encounter for screening mammogram for malignant neoplasm of breast (principal); R92.333 Mammographic heterogeneous density, bilateral breasts; R92.323 Mammographic fibroglandular density, bilateral breasts; R92.30 Dense breasts, unspecified; R92.1 Mammographic calcification found on diagnostic imaging of breast; I12.9 Hypertensive chronic kidney disease with stage 1 through stage 4 chronic kidney disease, or unspecified chronic kidney disease; N18.9 Chronic kidney disease, unspecified; E78.5 Hyperlipidemia, unspecified; I65.23 Occlusion and stenosis of bilateral carotid arteries; Z87.891 Personal history of nicotine dependence; Z79.01 Long term (current) use of anticoagulants
CPT/HCPCS: 77063; 77067; 99213

== ENCOUNTER 2024-05-13 10:30 | Emergency (ER) | payer MEDICARE, SELFPAY ==
--- NOTE | 2024-05-13 10:31 | XR_ITS ---
WS: [id number] Portable AP upright chest, 05/13/2024 Clinical Data: cp Comparison: Portable chest, 03/22/2024 Findings: No nodules, masses or effusions are seen. The heart is normal. The pulmonary vascularity is not increased. No pneumonia or pneumothorax is seen. The aortic arch and descending thoracic aorta show tortuosity. There is a hiatal hernia behind the heart. XR/XR chest 1V portable [id number] Impression: Atherosclerosis.
--- NOTE | 2024-05-13 10:32 | ECG_ITS ---
[facility] Date: 2024-05-13 Pat Name: Libby Estevez Department: Room: Gender: Female Group Reservations Coordinator: : 1940 Requested By: Miroslava Benoit Order Number: [id number] Julissa MD: Kyrie Pitt M.D. Measurements Intervals [place] Rate: 74 P: 33 SD: 157 QRS: -11 QRSD: 91 T: 55 QT: 353 QTc: 393 Interpretive Statements SINUS RHYTHM POSSIBLE ANTERIOR MYOCARDIAL INFARCTION , PROBABLY OLD [30 ms Q WAVE IN V3/V4, OR R < 0.2 mV IN V4] Compared to ECG 03/22/2024 07:01:39 Myocardial infarct finding now present Electronically Signed On 05-13-2024 21:50:08 ASSISTANT MANAGER BILINGUAL by Kyrie Pitt M.D. [email or web address]
[2024-05-13 10:42] VITALS: BP 136/81; PULSE 78; RESP 16; TEMP 36.4; O2SAT 98; BMI 32.5
[2024-05-13 11:13] LABS: Basophils # 0.1 10^3/uL (0.0-0.1); Basophils % 1.3 %; Eosinophils # 0.6 10^3/uL (0.0-0.8); Eosinophils % 8.2 %; Hematocrit 38.2 % (36-47); Lymphocytes # 1.6 10^3/uL (0.8-4.8); Mean Corpuscular HGB Conc 31.2 g/dL (30-55); Mean Corpuscular Hemoglobin 30.8 pg (27-33); Monocytes # 0.5 10^3/uL (0.2-0.9); Monocytes % 7.3 %; Neutrophils # 4.31 10^3/uL (1.8-7.7); Neutrophils % 60.9 %; Nucleated Red Blood Cells % 0 %; Platelet Count 300 10^3/cmm (157-399); Red Blood Count 3.86 10^6/uL (3.85-5.65); Red Cell Distribution Width 12.5 % (12.1-15.1); White Blood Count 7.08 10^3/uL (3.29-11.43)
[2024-05-13 11:32] LABS: Troponin(5th) Baseline 13 ng/L (0-10)
[2024-05-13 11:39] LABS: Alanine Aminotransferase 23 U/L (0-33); Albumin Level 4.2 g/dL (3.5-5.2); Alkaline Phosphatase 97 U/L (35-105); Anion Gap 17.4 (5-19); Aspartate Amino Transferase 22 U/L (0-32); Blood Urea Nitrogen 20 mg/dL (8-23); Calcium 9.1 mg/dL (8.5-10.5); Carbon Dioxide 25 mmol/L (22-29); Chloride 100 mmol/L (98-107); Creatinine Clr Calc Pharmacy 29.0809; Glucose 148 mg/dL (65-115); Lipase 31 U/L (13-60); Osmolality Calculated 291 mOsm/kg (285-295); Potassium 4.4 mmol/L (3.5-5.1); Sodium 138 mmol/L (136-145); Total Bilirubin 0.3 mg/dL (0.15-1.2); Total Protein 6.2 g/dL (6.6-8.7)
[2024-05-13 11:58] VITALS: BP 179/82; PULSE 67; RESP 16; O2SAT 98
[2024-05-13 12:07] VITALS: BP 179/82; PULSE 66; RESP 16; O2SAT 99
--- NOTE | 2024-05-13 12:24 | W.ED.CHESTPA ---
HPI - Chest Pain General: Chief Complaint: Chest Pain Stated Complaint: chest pressure Time Seen by Provider: 05/13/24 11:52 History of Present Illness: 84-year-old female who presents to the emergency room complaining of chest pressure. She had been making breakfast and was washing some dishes had a mild chest pressure did not really radiating anywhere. No particular shortness of breath she did have a carotid endarterectomy on the right about a week ago she thought maybe that was a little more swollen than before. She has not had any fever sweats or chills no productive cough she is not having any chest pain at this time. No focal neurologic deficits Associated symptoms: Deny abdominal pain, dyspnea or fever(s) Related Data Home Medications ?Medication ?Instructions ?Recorded ?Confirmed polyethylene glycol 3350 17 4 g PO DAILY 08/13/22 05/13/24 gram/dose oral powder (Miralax) multivitamin 1 tab PO DAILY 01/21/23 05/13/24 acetaminophen 500 mg capsule 500 mg PO BID Pain 11/05/23 05/13/24 aspirin 81 mg tablet,delayed 81 mg PO QPM 05/13/24 05/13/24 release azelastine 137 mcg (0.1 %) nasal 1 spray intranasal BID PRN 05/13/24 05/13/24 spray allergies polyvinyl alcohol-povidone (PF) 1 drp ophthalmic (eye) BID 05/13/24 05/13/24 1.4 %-0.6 % eye drops in a dropperette (Refresh Classic (PF)) Previous Rx's ?Medication ?Instructions ?Recorded orthotic insert #1 ea 08/27/23 Blood pressure monitor #1 ea 04/08/24 apixaban 5 mg tablet (Eliquis) 5 mg PO BID@0900,2100 #60 tabs 04/12/24 furosemide 20 mg tablet (Lasix) 20 mg PO DAILY #90 tabs 04/12/24 losartan 50 mg tablet 50 mg PO BID #180 tabs 04/19/24 amlodipine 5 mg tablet 10 mg (2 x 5 mg) PO DAILY #90 tabs 04/26/24 atorvastatin 80 mg tablet 80 mg PO BEDTIME #30 tabs 05/19/24 Allergies Allergy/AdvReac Type Severity Reaction Status Date / Time No Known Allergies Allergy Verified 05/13/24 10:42 Review of Systems Const: Denies: fever(s) or chills Card: Reports: other (Chest pressure transient); Denies: chest pain Resp: Denies: dyspnea GI: Denies: abdominal pain : Denies: dysuria, urinary frequency or urinary urgency Musc: Denies: neck pain or back pain Skin/Breast: Denies: rash PFSH ED PFSH: Medical History Chronic kidney disease Allergic rhinitis Plantar fasciitis, bilateral Essential hypertension with goal blood pressure less than 140/90 Murmur Generalized osteoarthritis Dyslipidemia Obesity Former smoker GERD (gastroesophageal reflux disease) Surgical History Status post trigger finger release Trigger finger, right ring finger Hx of section H/O knee surgery left knee Family History Father CAD (coronary artery disease) Denies family history of Cancer Social History Smoking and tobacco/nicotine status: former use of tobacco/nicotine Alcohol intake: never Substance/Drug Use: never Lives independently: Yes Housing: House Physical Exam Const: COMMON NORMALS: no acute distress GENERAL APPEARANCE: cooperative and comfortable ORIENTATION/CONSCIOUSNESS: Yes awake, Yes oriented to person, Yes oriented to place and Yes oriented to time HENMT: COMMON NORMALS: normocephalic, atraumatic and hearing grossly normal bilaterally HEAD & SCALP: normocephalic and atraumatic Resp: COMMON NORMALS: normal respiratory effort, No retractions, No use of accessory muscles and clear to auscultation bilaterally AUSCULTATION: clear to auscultation bilaterally Cardio: COMMON NORMALS: regular rate, regular rhythm and No murmurs present (Cardio) RATE: regular rate RHYTHM: regular rhythm GI: COMMON NORMALS: Soft to palpation and No hepatosplenomegaly present AUSCULTATION: Yes normoactive bowel sounds PALPATION: Yes Soft to palpation, No Tenderness to palpation present (GI), No Guarding due to palpation present (GI) and Yes No hepatosplenomegaly present Extremity: COMMON NORMALS: normal to inspection, capillary refill normal, no clubbing, cyanosis or edema, no calf tenderness and no pedal edema Neuro: SENSORIUM/ORIENTATION: Yes oriented to person, Yes oriented to place and Yes oriented to time Skin: COMMON NORMALS: no rashes or lesions noted GENERAL SKIN EXAM: no rashes or lesions noted Course Vital Signs: Vital signs: Vital Signs Temperature 97.5 F L 05/13/24 10:42 Pulse Rate 72 05/13/24 14:02 Respiratory Rate 16 05/13/24 14:02 Blood Pressure 176/76 05/13/24 14:02 Pulse Oximetry 98 05/13/24 14:02 Oxygen Delivery Me thod Room Air 05/13/24 10:42 MDM - Chest Pain Medical Decision Making EKGs cardiac enzymes did not show any acute changes. Will discharge patient home continue current medications. Follow-up as previously scheduled for her postop carotid care. Does not appear to be any complications of the wound there. No focal neurologic deficits. Stress test 2020 normal. Patient has no further symptoms. Medical Records I reviewed the patient's medical records. Lab Data I reviewed the patient's lab results. 05/13/24 11:02 05/13/24 11:02 Radiology Impressions Chest X-Ray 05/13/24 10:31 Impression: Atherosclerosis. Laboratory Results WBC 7.08 10^3/uL (3.29-11.43) 05/13/24 11:02 RBC 3.86 10^6/uL (3.85-5.65) 05/13/24 11:02 Hgb 11.90 g/dL (11.27-16.99) 05/13/24 11:02 Hct 38.2 % (36-47) 05/13/24 11:02 MCV 99.0 fl (85-98) H 05/13/24 11:02 MCH 30.8 pg (27-33) 05/13/24 11:02 MCHC 31.2 g/dL (30-55) 05/13/24 11:02 RDW 12.5 % (12.1-15.1) 05/13/24 11:02 Plt Count 300 10^3/cmm (157-399) 05/13/24 11:02 MPV 12.0 fL (7.4-10.4) H 05/13/24 11:02 Neut % (Auto) 60.9 % 05/13/24 11:02 Lymph % (Auto) 22.0 % 05/13/24 11:02 [place] % (Auto) 7.3 % 05/13/24 11:02 Eos % (Auto) 8.2 % 05/13/24 11:02 Baso % (Auto) 1.3 % 05/13/24 11:02 Neut # (Auto) 4.31 10^3/uL (1.8-7.7) 05/13/24 11:02 Lymph # (Auto) 1.6 10^3/uL (0.8-4.8) 05/13/24 11:02 [place] # (Auto) 0.5 10^3/uL (0.2-0.9) 05/13/24 11:02 Eos # (Auto) 0.6 10^3/uL (0.0-0.8) 05/13/24 11:02 Baso # (Auto) 0.1 10^3/uL (0.0-0.1) 05/13/24 11:02 Nucleated RBC % (auto) 0 % 05/13/24 11:02 Nucleated RBCs # 0.0 /100WBC 05/13/24 11:02 Sodium 138 mmol/L (136-145) 05/13/24 11:02 Potassium 4.4 mmol/L (3.5-5.1) 05/13/24 11:02 Chloride 100 mmol/L (98-107) 05/13/24 11:02 Carbon Dioxide 25 mmol/L (22-29) 05/13/24 11:02 Anion Gap 17.4 (5-19) 05/13/24 11:02 BUN 20 mg/dL (8-23) 05/13/24 11:02 Creatinine 1.5 mg/dL (0.5-0.9) H 05/13/24 11:02 GFR Calculation Not Reportable 05/13/24 11:02 Glucose 148 mg/dL (65-115) H 05/13/24 11:02 Calculated Osmolality 291 mOsm/kg (285-295) 05/13/24 11:02 Calcium 9.1 mg/dL (8.5-10.5) 05/13/24 11:02 Total Bilirubin 0.3 mg/dL (0.15-1.2) 05/13/24 11:02 AST 22 U/L (0-32) 05/13/24 11:02 ALT 23 U/L (0-33) 05/13/24 11:02 Alkaline Phosphatase 97 U/L (35-105) 05/13/24 11:02 Troponin T Baseline 13 ng/L (0-10) H 05/13/24 11:02 Troponin T 120 Minute 12.25 ng/L (0-10) H 05/13/24 12:45 Delta Troponin T -0.75 ABS# (0-10) L 05/13/24 12:45 Total Protein 6.2 g/dL (6.6-8.7) L 05/13/24 11:02 Albumin 4.2 g/dL (3.5-5.2) 05/13/24 11:02 Globulin 2.0 g/dL (1.3-4.6) 05/13/24 11:02 Lipase 31 U/L (13-60) 05/13/24 11:02 All radiology interpretation(s) finalized by discharge Clincial Decision Support The following clinical decision support tools were used to aid in care of the patient HEART Score -> History: Slightly Suspicous, EKG: Normal, Age: 65 or more yrs, Risk Factors: 1 or 2 Risk Factors, Troponin: Baseline Trop <16 ng/L. Resulting HEART Score: 3. Discharge Plan Discharge Patient Disposition: Home Clinical Impression: Atypical chest pain Condition: Stable Prescriptions: No Action acetaminophen 500 mg capsule 500 mg PO BID polyethylene glycol 3350 [Miralax] 17 gram/dose powder 4 g PO DAILY multivitamin Tablet 1 tab PO DAILY losartan 50 mg tablet 50 mg PO BID Qty: 180 1RF (DME) orthotic insert See Rx Instructions .Route .MEDSUPPLY Qty: 1 0RF Rx Instructions: As directed Eliquis 5 mg tablet 5 mg PO BID@0900,2100 Qty: 60 4RF furosemide [Lasix] 20 mg tablet 20 mg PO DAILY Qty: 90 3RF amlodipine 5 mg tablet 10 mg PO DAILY Qty: 90 3RF (DME) Blood pressure monitor See Rx Instructions .Route .MEDSUPPLY Qty: 1 0RF Rx Instructions: As directed atorvastatin 80 mg tablet 80 mg PO BEDTIME Qty: 30 6RF Refresh Classic (PF) 1.4-0.6 % Dropperette 1 drp OPHTHALMIC (EYE) BID aspirin 81 mg tablet,delayed release (DR/EC) 81 mg PO QPM azelastine 137 mcg (0.1 %) spray,non-aerosol 1 spray intranasal BID PRN (Reason: allergies) Rx Instructions: administer into each nostril Discharge Orders: Discharge ED (Routine); Ordered 05/13/24 Ordered By: Patel Dawson Referrals: Greg Emmanuel MD [Primary Care Provider] - Discharge Diet: Usual diet Discharge Activity: Increase activity as tolerated Patient Instructions: Opioid Safety, Pain Management Activity Restrictions/Additional Instructions: [facility]. It is very important that you follow up as instructed or that you return to the Emergency Department should you have concerns or if your condition changes or worsens in any way. You were seen in the emergency room with complaints of episode of chest discomfort your cardiac enzymes and EKG did not show any acute changes. Continue current medications and follow-up your primary care doctor within the next 1 to 2 weeks return if you have further problems. Print Language: Luxembourger Coding Level of Care Code ED Color Specialist for Brennen Chavarria
--- NOTE | 2024-05-13 12:32 | PC.PHAR ---
Pt has a current list from last month.
--- NOTE | 2024-05-13 12:54 | ECG_ITS ---
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 Measurements Intervals [place] Rate: 65 P: 47 [place]: 172 QRS: 16 QRSD: 90 T: 43 QT: 401 QTc: 419 Interpretive Statements SINUS RHYTHM LOW QRS VOLTAGE IN PRECORDIAL LEADS [QRS DEFLECTION < 1.0 mV IN CHEST LEADS] Compared to ECG 05/13/2024 10:37:21 Low QRS voltage now present Myocardial infarct finding no longer present Electronically Signed On 05-13-2024 22:15:06 [employer]AMING [employer]AGE [employer]ASH[employer] by Kyrie Pitt M.D. [email or web address]
[2024-05-13 13:05] VITALS: BP 180/79; PULSE 67; RESP 16; O2SAT 97
[2024-05-13 13:26] LABS: Troponin 5 2HR 12.25 ng/L (0-10)
[2024-05-13 13:27] LABS: Troponin 5 2HR Delta -0.75 ABS# (0-10)
[2024-05-13 13:30] VITALS: BP 171/76; PULSE 67; RESP 16; O2SAT 97
[2024-05-13 14:02] VITALS: BP 176/76; PULSE 72; RESP 16; O2SAT 98
== END 2024-05-13 14:03 | disposition home or self-care (01) ==
PROVIDERS: Emergency Medicine; Emergency Provider Family Medicine; PCP Family Medicine
DX: R07.89 Other chest pain (principal); Z79.01 Long term (current) use of anticoagulants; Z79.82 Long term (current) use of aspirin; Z87.891 Personal history of nicotine dependence
CPT/HCPCS: 36415; 71045; 80053; 83690; 84484; 85025; 93005; 99285

== ENCOUNTER → 2024-09-07 12:06 | Outpatient (BNVA) | payer MEDICARE, SELFPAY | PROVIDERS: PCP Family Medicine; Visit Provider Internal Medicine | DX: I10 Essential (primary) hypertension (principal); E78.5 Hyperlipidemia, unspecified; R01.1 Cardiac murmur, unspecified; Z79.01 Long term (current) use of anticoagulants; M79.604 Pain in right leg; M79.605 Pain in left leg | CPT/HCPCS: 99214 ==

== ENCOUNTER 2024-09-07 23:41 | Emergency (ER) | payer MEDICARE, SELFPAY ==
[2024-09-07 23:42] VITALS: BP 205/84; PULSE 88; RESP 16; TEMP 36.5; O2SAT 98; BMI 33.3
--- NOTE | 2024-09-07 23:54 | ECG_ITS ---
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
[2024-09-08 01:03] VITALS: BP 193/76; PULSE 74; RESP 17; O2SAT 99
[2024-09-08 01:30] VITALS: BP 161/73; PULSE 72; RESP 14; O2SAT 95
[2024-09-08 02:00] VITALS: BP 164/75; PULSE 71; RESP 13; O2SAT 95
--- NOTE | 2024-09-08 02:11 | CTR_ITS ---
PROCEDURE INFORMATION: Exam: CT Head Without Contrast Exam date and time: 09/08/2024 2:23 AM Age: 84 years old Clinical indication: Other: HTN; Additional info: Accelerated HTN TECHNIQUE: Imaging protocol: Computed tomography of the head without contrast. Radiation optimization: All CT scans at this facility use at least one of these dose optimization techniques: automated exposure control; mA and/or kV adjustment per patient size (includes targeted exams where dose is matched to clinical indication); or iterative reconstruction. COMPARISON: MR head wo con* [id number] 03/23/2024 9:38 AM RADIATION DOSE METRICS: Total DLP (mGy-cm): 975.3 FINDINGS: Brain: Moderate cerebral atrophy. Stable appearance of chronic subdural hygromas. Normal differentiation of george-white matter. No evidence of acute intracranial hemorrhage. No midline shift. Cerebral ventricles: Ventricles are normal in caliber. Paranasal sinuses: Visualized paranasal sinuses are clear. Mastoid air cells: Mastoid air cells are clear. Bones: No acute osseous findings. Soft tissues: Visualized superficial soft tissues are within normal limits. Other findings: Intracranial atherosclerosis. CT/CT head wo con* [id number] IMPRESSION: 1. No acute intracranial findings. 2. Chronic findings appear unchanged compared to 03/23/2024
--- NOTE | 2024-09-08 02:11 | XRR_ITS ---
PROCEDURE INFORMATION: Exam: XR Chest Exam date and time: 09/08/2024 2:13 AM Age: 84 years old Clinical indication: Other: Hypertension; Additional info: HTN TECHNIQUE: Imaging protocol: Radiologic exam of the chest. Views: 1 view. COMPARISON: CR XR chest 1V portable [id number] 05/13/2024 11:08 AM FINDINGS: Lungs: Unremarkable. No consolidation. Pleural spaces: Unremarkable. No pleural effusion. No pneumothorax. Heart/Mediastinum: Unremarkable. No cardiomegaly. Bones/joints: Unremarkable. XR/XR chest 1V portable [id number] IMPRESSION: No acute findings.
[2024-09-08 02:16] LABS: Basophils # 0.1 10^3/uL (0.0-0.1); Basophils % 0.8 %; Eosinophils # 0.3 10^3/uL (0.0-0.8); Eosinophils % 3.7 %; Hematocrit 40.8 % (36-47); Lymphocytes # 1.9 10^3/uL (0.8-4.8); Lymphocytes % 22.7 %; Mean Corpuscular HGB Conc 31.6 g/dL (30-55); Mean Corpuscular Hemoglobin 28.8 pg (27-33); Mean Corpuscular Volume 91.1 fl (85-98); Mean Platelet Volume 13.5 fL (7.4-10.4); Monocytes # 0.8 10^3/uL (0.2-0.9); Monocytes % 9.5 %; Neutrophils # 5.34 10^3/uL (1.8-7.7); Neutrophils % 63.1 %; Nucleated Red Blood Cells % 0 %; Platelet Count 253 10^3/cmm (157-399); Red Blood Count 4.48 10^6/uL (3.85-5.65); Red Cell Distribution Width 13.9 % (12.1-15.1); White Blood Count 8.46 10^3/uL (3.29-11.43)
[2024-09-08 02:27] LABS: Alanine Aminotransferase 23 U/L (0-33); Albumin Level 4.6 g/dL (3.5-5.2); Alkaline Phosphatase 99 U/L (35-105); Anion Gap 17.9 (5-19); Aspartate Amino Transferase 22 U/L (0-32); Blood Urea Nitrogen 22 mg/dL (8-23); Calcium 9.7 mg/dL (8.5-10.5); Carbon Dioxide 21 mmol/L (22-29); Chloride 102 mmol/L (98-107); Creatinine Clr Calc Pharmacy 33.9305; Globulin 2.5 g/dL (1.3-4.6); Glucose 93 mg/dL (65-115); Osmolality Calculated 287 mOsm/kg (285-295); Potassium 3.9 mmol/L (3.5-5.1); Sodium 137 mmol/L (136-145); Total Bilirubin 0.4 mg/dL (0.15-1.2); Total Protein 7.1 g/dL (6.6-8.7)
[2024-09-08 02:30] VITALS: BP 139/74; PULSE 81; O2SAT 96
[2024-09-08 02:31] LABS: Troponin(5th) Baseline 13 ng/L (0-10)
--- NOTE | 2024-09-08 03:32 | W.ED.GENADLT ---
HPI - General Adult General: Chief complaint: General Medical Stated complaint: BP Time Seen by Provider: 09/08/24 00:59 History of Present Illness: Patient is a generally well-appearing 84-year-old female from home seen for accelerated hypertension. She states that her blood pressure normally runs roughly 150/70 but tonight found it to be 200 systolic. She denies headache, chest pain, shortness of breath, lightheadedness, visual disturbance, or any other associated symptom. She is accompanied by her son. Related Data Home Medications ?Medication ?Instructions ?Recorded ?Confirmed polyethylene glycol 3350 17 4 g PO DAILY 08/13/22 09/07/24 gram/dose oral powder (Miralax) multivitamin 1 tab PO DAILY 01/21/23 09/07/24 acetaminophen 500 mg capsule 500 mg PO BID Pain 11/05/23 09/07/24 aspirin 81 mg tablet,delayed 81 mg PO QPM 05/13/24 09/07/24 release azelastine 137 mcg (0.1 %) nasal 1 spray intranasal BID PRN 05/13/24 09/07/24 spray allergies polyvinyl alcohol-povidone (PF) 1 drp ophthalmic (eye) BID 05/13/24 09/07/24 1.4 %-0.6 % eye drops in a dropperette (Refresh Classic (PF)) Previous Rx's ?Medication ?Instructions ?Recorded orthotic insert #1 ea 08/27/23 Blood pressure monitor #1 ea 04/08/24 apixaban 5 mg tablet (Eliquis) 5 mg PO BID@0900,2100 #60 tabs 04/12/24 furosemide 20 mg tablet (Lasix) 20 mg PO DAILY #90 tabs 04/12/24 amlodipine 5 mg tablet 10 mg (2 x 5 mg) PO DAILY #90 tabs 04/26/24 atorvastatin 80 mg tablet 80 mg PO BEDTIME #30 tabs 05/19/24 losartan 50 mg tablet 50 mg PO BID #180 tabs 06/02/24 cephalexin 500 mg capsule 500 mg PO Q8H #21 caps 07/02/24 Allergies Allergy/AdvReac Type Severity Reaction Status Date / Time No Known Allergies Allergy Verified 09/07/24 12:42 [facility] ED PFSH: Medical History Chronic kidney disease Allergic rhinitis Plantar fasciitis, bilateral Essential hypertension with goal blood pressure less than 140/90 Murmur Generalized osteoarthritis Dyslipidemia Obesity Former smoker GERD (gastroesophageal reflux disease) Surgical History History of carotid endarterectomy 05/04/24 - Dr Ly Status post trigger finger release Trigger finger, right ring finger Hx of section H/O knee surgery left knee Family History Father CAD (coronary artery disease) Denies family history of Cancer Social History Smoking and tobacco/nicotine status: never used tobacco/nicotine Alcohol intake: never Substance/Drug Use: never Lives independently: Yes Housing: House Physical Exam Const: COMMON NORMALS: no acute distress, patient oriented x3 and alert HENMT: COMMON NORMALS: normocephalic and atraumatic HEAD & SCALP: normocephalic and atraumatic Eye: COMMON NORMALS: Equal, round and reactive pupils present, EOMs intact bilaterally and no scleral icterus PUPIL: Yes Equal, round and reactive pupils present Resp: COMMON NORMALS: normal respiratory effort and No retractions Cardio: COMMON NORMALS: regular rate, regular rhythm and No murmurs present (Cardio) RATE: regular rate RHYTHM: regular rhythm GI: COMMON NORMALS: Normal to inspection, nondistended, normoactive bowel sounds present, Soft to palpation and non-tender PALPATION: Yes Soft to palpation Neuro: COMMON NORMALS: patient oriented x3 SENSORIUM/ORIENTATION: Yes alert Skin: COMMON NORMALS: no rashes or lesions noted GENERAL SKIN EXAM: no rashes or lesions noted Course Vital Signs: Vital signs: Vital Signs Temperature 97.7 F 09/07/24 23:42 Pulse Rate 81 09/08/24 02:30 Respiratory Rate 13 09/08/24 02:00 Blood Pressure 139/74 09/08/24 02:30 Pulse Oximetry 96 09/08/24 02:30 Oxygen Delivery Me thod Room Air 09/08/24 01:03 [facility] - General Adult Medical Decision Making In summary, patient is a well-appearing 84-year-old female seen for blood pressure which is higher than typical. She states that she has not missed any doses of her medications. Without intervention, blood pressure dropped from 200 systolic to 160/70. CT brain, EKG, chest x-ray, labs show no evidence of acute endorgan injury due to accelerated hypertension. We discussed this at length and all parties show good understanding. She will be discharged home in stable and improved condition with follow-up primary care as needed. Lab Data 09/08/24 00:59 09/08/24 00:59 Radiology Impressions Chest X-Ray 09/08/24 02:11 IMPRESSION: No acute findings. Head CT 09/08/24 02:11 IMPRESSION: 1. No acute intracranial findings. 2. Chronic findings appear unchanged compared to 03/23/2024 Laboratory Results WBC 8.46 10^3/uL (3.29-11.43) 09/08/24 00:59 RBC 4.48 10^6/uL (3.85-5.65) 09/08/24 00:59 Hgb 12.90 g/dL (11.27-16.99) 09/08/24 00:59 Hct 40.8 % (36-47) 09/08/24 00:59 MCV 91.1 fl (85-98) 09/08/24 00:59 MCH 28.8 pg (27-33) 09/08/24 00:59 MCHC 31.6 g/dL (30-55) 09/08/24 00:59 RDW 13.9 % (12.1-15.1) 09/08/24 00:59 Plt Count 253 10^3/cmm (157-399) 09/08/24 00:59 MPV 13.5 fL (7.4-10.4) H 09/08/24 00:59 Neut % (Auto) 63.1 % 09/08/24 00:59 Lymph % (Auto) 22.7 % 09/08/24 00:59 [place] % (Auto) 9.5 % 09/08/24 00:59 Eos % (Auto) 3.7 % 09/08/24 00:59 Baso % (Auto) 0.8 % 09/08/24 00:59 Neut # (Auto) 5.34 10^3/uL (1.8-7.7) 09/08/24 00:59 Lymph # (Auto) 1.9 10^3/uL (0.8-4.8) 09/08/24 00:59 [place] # (Auto) 0.8 10^3/uL (0.2-0.9) 09/08/24 00:59 Eos # (Auto) 0.3 10^3/uL (0.0-0.8) 09/08/24 00:59 Baso # (Auto) 0.1 10^3/uL (0.0-0.1) 09/08/24 00:59 Nucleated RBC % (auto) 0 % 09/08/24 00:59 Nucleated RBCs # 0.0 /100WBC 09/08/24 00:59 Sodium 137 mmol/L (136-145) 09/08/24 00:59 Potassium 3.9 mmol/L (3.5-5.1) 09/08/24 00:59 Chloride 102 mmol/L (98-107) 09/08/24 00:59 Carbon Dioxide 21 mmol/L (22-29) L 09/08/24 00:59 Anion Gap 17.9 (5-19) 09/08/24 00:59 BUN 22 mg/dL (8-23) 09/08/24 00:59 Creatinine 1.3 mg/dL (0.5-0.9) H 09/08/24 00:59 GFR Calculation Not Reportable 09/08/24 00:59 Glucose 93 mg/dL (65-115) 09/08/24 00:59 Calculated Osmolality 287 mOsm/kg (285-295) 09/08/24 00:59 Calcium 9.7 mg/dL (8.5-10.5) 09/08/24 00:59 Total Bilirubin 0.4 mg/dL (0.15-1.2) 09/08/24 00:59 AST 22 U/L (0-32) 09/08/24 00:59 ALT 23 U/L (0-33) 09/08/24 00:59 Alkaline Phosphatase 99 U/L (35-105) 09/08/24 00:59 Troponin T Baseline 13 ng/L (0-10) H 09/08/24 00:59 Total Protein 7.1 g/dL (6.6-8.7) 09/08/24 00:59 Albumin 4.6 g/dL (3.5-5.2) 09/08/24 00:59 Globulin 2.5 g/dL (1.3-4.6) 09/08/24 00:59 All radiology interpretation(s) finalized by discharge EKG Data EKG 1: Interpretation: Time?2353?sinus rhythm with infrequent PACs, rate of 76, no ST segment elevation or depression, no T wave inversions, QTc = 420 Computer generated interpretation: Chest X-Ray 09/08/24 02:11 IMPRESSION: No acute findings. Head CT 09/08/24 02:11 IMPRESSION: 1. No acute intracranial findings. 2. Chronic findings appear unchanged compared to 03/23/2024 Discharge Plan Discharge Patient Disposition: Home Clinical Impression: Accelerated hypertension Condition: Stable Prescriptions: No Action acetaminophen 500 mg capsule 500 mg PO BID polyethylene glycol 3350 [Miralax] 17 gram/dose powder 4 g PO DAILY multivitamin Tablet 1 tab PO DAILY (DME) orthotic insert See Rx Instructions .Route .MEDSUPPLY Qty: 1 0RF Rx Instructions: As directed Eliquis 5 mg tablet 5 mg PO BID@0900,2100 Qty: 60 4RF furosemide [Lasix] 20 mg tablet 20 mg PO DAILY Qty: 90 3RF amlodipine 5 mg tablet 10 mg PO DAILY Qty: 90 3RF (DME) Blood pressure monitor See Rx Instructions .Route .MEDSUPPLY Qty: 1 0RF Rx Instructions: As directed atorvastatin 80 mg tablet 80 mg PO BEDTIME Qty: 30 6RF losartan 50 mg tablet 50 mg PO BID Qty: 180 1RF cephalexin 500 mg capsule 500 mg PO Q8H Qty: 21 0RF Refresh Classic (PF) 1.4-0.6 % Dropperette 1 drp OPHTHALMIC (EYE) BID aspirin 81 mg tablet,delayed release (DR/EC) 81 mg PO QPM azelastine 137 mcg (0.1 %) spray,non-aerosol 1 spray intranasal BID PRN (Reason: allergies) Rx Instructions: administer into each nostril Discharge Orders: Discharge ED (Routine); Ordered 09/08/24 Ordered By: Valerio Ramirez Referrals: Greg Emmanuel MD [Primary Care Provider, Family Practice] Discharge Diet: Advance as tolerated Discharge Activity: Increase activity as tolerated Patient Instructions: Hypertension in the Older Adult (ED) Print Language: Angolan Coding Level of Care Code ED 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
[2024-09-08 04:16] VITALS: BP 162/76; PULSE 69; O2SAT 97
== END 2024-09-08 03:37 | disposition home or self-care (01) ==
PROVIDERS: Emergency Provider Student in an Organized Health Care Education/Training Program; PCP Family Medicine
DX: I10 Essential (primary) hypertension (principal); Z79.01 Long term (current) use of anticoagulants; Z79.82 Long term (current) use of aspirin; E78.5 Hyperlipidemia, unspecified; N18.9 Chronic kidney disease, unspecified
CPT/HCPCS: 70450; 71045; 80053; 84484; 85025; 93005; 99285

== ENCOUNTER 2024-09-14 08:59 | Outpatient (CLI) | payer MEDICARE, SELFPAY ==
--- NOTE | 2024-09-14 09:30 | USR_ITS ---
PROCEDURE INFORMATION: Exam: US Duplex Lower Extremity Veins, Bilateral, Venous Insufficiency Exam date and time: 09/14/2024 9:42 AM Age: 84 years old Clinical indication: Pain; Leg, lower; Bilateral; Additional info: Bilateral leg pain TECHNIQUE: Imaging protocol: Real-time duplex ultrasound of the extremities with 2-D george scale, color Doppler flow and spectral waveform analysis including responses to compression and other maneuvers (when performed) with image documentation. Complete exam focused on the bilateral lower extremity veins for venous insufficiency. COMPARISON: No prior relevant images. FINDINGS: Right deep veins: The common femoral, femoral, popliteal and posterior tibial veins are patent without thrombus. Normal Doppler waveforms. Normal compressibility and/or augmentation response. No evidence of venous reflux. Right superficial veins: Saphenofemoral junction and greater saphenous veins are patent without thrombus. No evidence of venous reflux. Right venous AP measurements: SFJV: 6 mm GSV Distal to SFJ: 4.4 mm GSV proximal: 3 mm GSV mid: 2.7 mm GSV distal: 2.4 mm GSV [id number]: 3.1 mm SSV proximal: 2.6 mm SSV mid: 2.1 mm Left deep veins: The common femoral, femoral, popliteal and posterior tibial veins are patent without thrombus. Normal Doppler waveforms. Normal compressibility and/or augmentation response. Evidence of venous reflux in the left common femoral vein and left femoral vein with reflux times of 1.17 sec and 0.99 sec, respectively. Left superficial veins: Saphenofemoral junction and greater saphenous veins are patent without thrombus. No evidence of venous reflux. Left venous AP measurements: SFJV: 5 mm GSV Distal to SFJ: 3.5 mm GSV proximal: 3.4 mm GSV mid: 2.7 mm GSV distal: 2.1 mm GSV [id number]: 2.2 mm SSV proximal: 2.0 mm SSV mid: 1.6 mm Soft tissues: Unremarkable. US/[place] [id number] IMPRESSION: 1. No evidence of deep vein thrombosis. 2. Evidence of venous reflux in the left common femoral vein and left femoral vein with reflux times of 1.17s and 0.99s, respectively.
== END 2024-09-14 09:00 | disposition home or self-care (01) ==
PROVIDERS: PCP Family Medicine; Visit Provider Internal Medicine
DX: M79.604 Pain in right leg (principal); M79.605 Pain in left leg; I87.2 Venous insufficiency (chronic) (peripheral)
CPT/HCPCS: 93970

== ENCOUNTER → 2025-01-18 10:08 | Outpatient (BNVA) | payer MEDICARE, SELFPAY | PROVIDERS: PCP Family Medicine; Visit Provider Family Medicine | DX: R73.03 Prediabetes (principal); Z51.81 Encounter for therapeutic drug level monitoring; E55.9 Vitamin D deficiency, unspecified | CPT/HCPCS: 80053; 82306; 83036; 85025 ==

== ENCOUNTER → 2025-02-17 09:23 | Outpatient (BNVA) | payer MEDICARE, SELFPAY | PROVIDERS: PCP Family Medicine; Referring Provider Family Medicine; Visit Provider Dermatology | DX: L82.1 Other seborrheic keratosis (principal); L72.8 Other follicular cysts of the skin and subcutaneous tissue; L57.8 Other skin changes due to chronic exposure to nonionizing radiation; D18.01 Hemangioma of skin and subcutaneous tissue; D48.5 Neoplasm of uncertain behavior of skin | CPT/HCPCS: 11102; 99203 ==

== ENCOUNTER → 2025-03-22 12:24 | Outpatient (BNVA) | payer MEDICARE, SELFPAY | PROVIDERS: PCP Family Medicine; Visit Provider Dermatology | DX: D04.9 Carcinoma in situ of skin, unspecified (principal); C44.41 Basal cell carcinoma of skin of scalp and neck | CPT/HCPCS: 12031; 17311; 99213 ==